=== PATIENT | male | born 1945 | race Caucasian/White ===

== ENCOUNTER 2019-09-02 10:10 | Outpatient (RCR) | payer MEDICARE, OTHER, SELFPAY ==
[2019-07-01 10:44] LABS: INR 2.3; Prothrombin Time 24.7 Seconds (11.1-14.7)
[2019-07-31 11:46] LABS: INR 1.5
[2019-08-12 10:27] LABS: INR 2.3; Prothrombin Time 25.1 Seconds (11.1-14.7)
[2019-09-02 11:23] LABS: INR 2.3
== END 2019-09-29 23:59 | disposition home or self-care (01) ==
LOC: ANHLAB 10:10
PROVIDERS: PCP Internal Medicine; Visit Provider Internal Medicine Cardiovascular Disease
DX: Z51.81 Encounter for therapeutic drug level monitoring (principal); I48.91 Unspecified atrial fibrillation; Z79.01 Long term (current) use of anticoagulants
CPT/HCPCS: 36415; 85610

== ENCOUNTER 2019-11-28 09:19 | Outpatient (CLI) | payer MEDICARE, OTHER, SELFPAY ==
[2019-12-03 16:33] LABS: Calprotectin, Stool 325 mcg/g
== END 2019-11-28 09:20 | disposition home or self-care (01) ==
LOC: ANHLAB 09:21
PROVIDERS: PCP Internal Medicine; Visit Provider Internal Medicine Gastroenterology
DX: R19.4 Change in bowel habit (principal)
CPT/HCPCS: 83993

== ENCOUNTER 2019-12-05 10:40 | Outpatient (CLI) | payer MEDICARE, OTHER, SELFPAY ==
[2019-12-06 12:26] LABS: CA 19-9 13 U/mL (<34)
== END 2019-12-05 10:41 | disposition home or self-care (01) ==
LOC: ANHLAB 10:42
PROVIDERS: PCP Internal Medicine; Visit Provider Internal Medicine Gastroenterology
DX: K86.2 Cyst of pancreas (principal)
CPT/HCPCS: 36415; 86301

== ENCOUNTER 2019-12-10 08:51 | Outpatient (CLI) | payer MEDICARE, OTHER, SELFPAY ==
--- NOTE | ~2019-12-10 | CT_ITS ---
EXAMINATION: CT chest w con DATE: 12/10/2019 09:30 INDICATION: Non-small cell lung cancer TECHNIQUE: Transaxial computed tomographic images of the chest were obtained after the administration of 75 cc of Omnipaque 350 intravenous contrast. The dose-length product (DLP) was 299.75 mGy-cm. Ite rative reconstruction was used. COMPARISON: 06/14/2019 FINDINGS: There is stable volume loss of the right lung related to right partial pneumonectomy. There is also a stable right hydropneumothorax. No acute airspace opacities are identified. There is minim al chronic opacity in the medial right lung base. Moderate emphysema is noted. Right perihilar reticu lar opacities are stable. The heart size is normal. Chronic deformities of multiple right-sided ribs are consistent with thoracotomy change. An unchanged 7.3 cm mass of the right adrenal gland containin g fat, soft tissue, and calcified density is consistent with a myelolipoma. There is a 4.3 cm cyst of the left kidney upper pole. Stones are present in the nondistended gallbladder. There are bridging o steophytes at multiple levels in the spine, consistent with diffuse idiopathic skeletal hyperostosis (DISH). There is a subtle compression fracture of the T3 vertebral body, new since the prior examinat ion. IMPRESSION: 1. Stable treatment changes of the right lung. 2. Subtle compression fracture of the T3 vertebral body, new since the prior examination. Reviewed, dictated and finalized at location A. IMPRESSION: 1. Stable treatment changes of the right lung. 2. Subtle compression fracture of the T3 vertebral body, new since the prior ex amination.
== END 2019-12-10 08:52 | disposition home or self-care (01) ==
PROVIDERS: PCP Internal Medicine; Visit Provider Internal Medicine Hematology & Oncology
DX: C34.91 Malignant neoplasm of unspecified part of right bronchus or lung (principal); M48.54XA Collapsed vertebra, not elsewhere classified, thoracic region, initial encounter for fracture
CPT/HCPCS: 71260; Q9967

== ENCOUNTER 2019-12-18 10:29 | Outpatient (CLI) | payer MEDICARE, OTHER, SELFPAY ==
[2019-12-18 10:44] LABS: Basophils Percent Auto 0.4 % (0.2-1.2); Eosinophils Absolute Auto 0.1 K/mm3 (0-0.3); Eosinophils Percent Auto 1.6 % (0-4.4); Hematocrit 54.4 % (42.0-52.0); Hemoglobin 17.1 g/dL (14.0-18.0); Immature Granulocyte Absolute 0.03 K/mm3 (0.00-0.031); Immature Granulocyte Percent A 0.4 % (0-0.5); Lymphocytes Absolute Auto 1.18 K/mm3 (0.9-3.2); Lymphocytes Percent Auto 14.5 % (18.3-44.2); Mean Corpuscular HGB Conc 31.4 g/dl (32-36); Mean Corpuscular Hemoglobin 30.2 pg (26-34); Mean Corpuscular Volume 96.1 fl (80-100); Mean Platelet Volume 9.4 fl (7.4-10.4); Monocytes Absolute Auto 0.8 K/mm3 (0.1-0.6); Neutrophils Absolute Auto 5.9 K/mm3 (1.3-6.7); Neutrophils Percent Auto 73.1 % (45.5-73.1); Platelet Count Result 234 k/mm3 (150-375); Red Blood Count 5.66 M/mm3 (4.6-6.20); Red Cell Distribution Width 14.7 % (11.5-14.5); White Blood Count 8.1 K/mm3 (4.5-10.0)
[2019-12-18 10:51] LABS: Blood Urea Nitrogen 15 mg/dL (8-26); Carbon Dioxide 34 mmol/L (22-30); Chloride 95 mmol/L (98-109); Estimated Glomerular Filt Rate > 60; Glucose 97 mg/dL (70-105); Potassium 4.5 mmol/L (3.5-4.9); Sodium 137 mmol/L (138-146)
[2019-12-18 11:42] LABS: Alanine Aminotransferase 16 U/L (4-50); Alkaline Phosphatase 119 U/L (38-126); Aspartate Amino Transferase 24 U/L (17-59); Blood Urea Nitrogen 15 mg/dL (9-20); Calcium 8.8 mg/dL (8.4-10.2); Carbon Dioxide 32 mmol/L (22-30); Chloride 96 mmol/L (98-107); Estimated Glomerular Filt Rate > 60; Glucose 93 mg/dL (75-110); Potassium 4.8 mmol/L (3.4-5.0); Sodium 134 mmol/L (137-145)
== END 2019-12-18 10:30 | disposition home or self-care (01) ==
LOC: ANHLAB 10:31
PROVIDERS: PCP Internal Medicine; Visit Provider Internal Medicine Hematology & Oncology
DX: C34.91 Malignant neoplasm of unspecified part of right bronchus or lung (principal)
CPT/HCPCS: 36415; 80048; 80053; 85025

== ENCOUNTER 2019-12-26 10:04 | Outpatient (RCR) | payer MEDICARE, OTHER, SELFPAY ==
[2019-09-30 09:44] LABS: INR 2.7; Prothrombin Time 28.2 Seconds (11.1-14.7)
[2019-09-30 09:49] LABS: Alanine Aminotransferase 13 U/L (4-50); Albumin Level 3.8 g/dL (3.5-5.1); Alkaline Phosphatase 101 U/L (38-126); Aspartate Amino Transferase 23 U/L (17-59); Blood Urea Nitrogen 16 mg/dL (9-20); Calcium 8.6 mg/dL (8.4-10.2); Carbon Dioxide 38 mmol/L (22-30); Chloride 92 mmol/L (98-107); Estimated Glomerular Filt Rate > 60; Glucose 91 mg/dL (75-110); Potassium 4.3 mmol/L (3.4-5.0); Sodium 141 mmol/L (137-145)
[2019-10-29 11:10] LABS: INR 3.5; Prothrombin Time 34.7 Seconds (11.1-14.7)
[2019-11-13 10:43] LABS: Hematocrit 50.5 % (42.0-52.0); Hemoglobin 15.8 g/dL (14.0-18.0); Mean Corpuscular HGB Conc 31.3 g/dl (32-36); Mean Corpuscular Hemoglobin 29.8 pg (26-34); Mean Corpuscular Volume 95.3 fl (80-100); Mean Platelet Volume 9.6 fl (7.4-10.4); Platelet Count Result 218 k/mm3 (150-375); Red Cell Distribution Width 13.9 % (11.5-14.5); White Blood Count 6.9 K/mm3 (4.5-10.0)
[2019-11-13 10:54] LABS: INR 2.3
[2019-11-13 10:56] LABS: Alanine Aminotransferase 15 U/L (4-50); Albumin Level 3.5 g/dL (3.5-5.1); Alkaline Phosphatase 105 U/L (38-126); Aspartate Amino Transferase 22 U/L (17-59); Bilirubin,Total 0.6 mg/dL (0.2-1.3); Blood Urea Nitrogen 14 mg/dL (9-20); Calcium 8.4 mg/dL (8.4-10.2); Carbon Dioxide 37 mmol/L (22-30); Chloride 96 mmol/L (98-107); Estimated Glomerular Filt Rate > 60; Glucose 88 mg/dL (75-110); Lipase 36 U/L (23-300); Potassium 4.3 mmol/L (3.4-5.0); Sodium 136 mmol/L (137-145)
[2019-12-11 11:44] LABS: INR 1.7; Prothrombin Time 19.1 Seconds (11.1-14.7)
[2019-12-26 10:48] LABS: Prothrombin Time 22.2 Seconds (11.1-14.7)
== END 2019-12-29 23:59 | disposition home or self-care (01) ==
LOC: ANHLAB 10:04
PROVIDERS: PCP Internal Medicine; Visit Provider Internal Medicine Cardiovascular Disease
DX: Z51.81 Encounter for therapeutic drug level monitoring (principal); I48.91 Unspecified atrial fibrillation; Z79.01 Long term (current) use of anticoagulants
CPT/HCPCS: 36415; 80053; 83690; 85027; 85610

== ENCOUNTER 2020-01-23 09:37 | Outpatient (CLI) | payer MEDICARE, OTHER, SELFPAY ==
[2020-01-23 12:46] LABS: Alanine Aminotransferase 15 U/L (4-50); Albumin Level 3.9 g/dL (3.5-5.1); Alkaline Phosphatase 102 U/L (38-126); Aspartate Amino Transferase 24 U/L (17-59); Blood Urea Nitrogen 13 mg/dL (9-20); Calcium 8.7 mg/dL (8.4-10.2); Carbon Dioxide 36 mmol/L (22-30); Chloride 97 mmol/L (98-107); Cholesterol 144 mg/dL (0-200); Estimated Glomerular Filt Rate > 60; Glucose 98 mg/dL (75-110); HDL Direct 53 mg/dL; LDL Cholesterol Direct 72 mg/dL; Potassium 4.1 mmol/L (3.4-5.0); Sodium 137 mmol/L (137-145); Thyroid Stimulating Hormone 0.351 uIU/mL (0.465-4.680); Triglycerides 94 mg/dL (<150)
[2020-01-23 14:50] LABS: Total Triiodothyronine (T3) 1.38 NG/ML (0.97-1.69)
== END 2020-01-23 09:38 | disposition home or self-care (01) ==
PROVIDERS: Nurse Practitioner; PCP Internal Medicine; Visit Provider Internal Medicine
DX: E78.5 Hyperlipidemia, unspecified (principal); E05.90 Thyrotoxicosis, unspecified without thyrotoxic crisis or storm; I10 Essential (primary) hypertension
CPT/HCPCS: 36415; 80048; 80061; 80076; 84436; 84443; 84480

== ENCOUNTER 2020-01-24 09:17 | Outpatient (CLI) | payer MEDICARE, OTHER, SELFPAY ==
[2020-01-24 11:06] LABS: Free T4 Free Thyroxine 1.45 ng/mL (0.78-2.19)
[2020-01-24 11:10] LABS: Total Triiodothyronine (T3) 1.43 NG/ML (0.97-1.69)
== END 2020-01-24 09:18 | disposition home or self-care (01) ==
PROVIDERS: PCP Internal Medicine; Visit Provider Internal Medicine
DX: E03.9 Hypothyroidism, unspecified (principal); R79.89 Other specified abnormal findings of blood chemistry
CPT/HCPCS: 36415; 84439; 84480

== ENCOUNTER 2020-04-17 10:21 | Outpatient (RCR) | payer MEDICARE, OTHER, SELFPAY ==
[2020-01-23 12:46] LABS: Alanine Aminotransferase 15 U/L (4-50); Albumin Level 3.9 g/dL (3.5-5.1); Alkaline Phosphatase 103 U/L (38-126); Aspartate Amino Transferase 25 U/L (17-59); Blood Urea Nitrogen 14 mg/dL (9-20); Calcium 8.6 mg/dL (8.4-10.2); Carbon Dioxide 37 mmol/L (22-30); Chloride 97 mmol/L (98-107); Estimated Glomerular Filt Rate > 60; Glucose 98 mg/dL (75-110); Potassium 4.1 mmol/L (3.4-5.0); Sodium 137 mmol/L (137-145)
[2020-01-23 13:10] LABS: INR 1.9; Prothrombin Time 21.1 Seconds (11.1-14.7)
[2020-02-19 10:16] LABS: INR 1.9; Prothrombin Time 20.9 Seconds (11.1-14.7)
[2020-02-19 10:17] LABS: Alanine Aminotransferase 21 U/L (4-50); Alkaline Phosphatase 109 U/L (38-126); Aspartate Amino Transferase 23 U/L (17-59); Bilirubin,Total 0.9 mg/dL (0.2-1.3); Blood Urea Nitrogen 16 mg/dL (9-20); Calcium 8.7 mg/dL (8.4-10.2); Carbon Dioxide 32 mmol/L (22-30); Chloride 98 mmol/L (98-107); Estimated Glomerular Filt Rate > 60; Glucose 106 mg/dL (75-110); Potassium 4.3 mmol/L (3.4-5.0); Sodium 135 mmol/L (137-145)
[2020-03-24 11:13] LABS: INR 1.7; Prothrombin Time 19.9 Seconds (11.1-14.7)
[2020-04-03 14:23] LABS: INR 2.6; Prothrombin Time 27.4 Seconds (11.1-14.7)
[2020-04-03 14:34] LABS: Alanine Aminotransferase 17 U/L (4-50); Albumin Level 3.8 g/dL (3.5-5.1); Alkaline Phosphatase 98 U/L (38-126); Anion Gap 8 mmol/L (8-16); Aspartate Amino Transferase 24 U/L (17-59); Bilirubin,Total 0.7 mg/dL (0.2-1.3); Blood Urea Nitrogen 20 mg/dL (9-20); Calcium 8.4 mg/dL (8.4-10.2); Carbon Dioxide 28 mmol/L (22-30); Chloride 98 mmol/L (98-107); Estimated Glomerular Filt Rate > 60; Glucose 124 mg/dL (75-110); Potassium 4.1 mmol/L (3.4-5.0); Sodium 134 mmol/L (137-145)
[2020-04-17 10:58] LABS: INR 2.3; Prothrombin Time 25.2 Seconds (11.1-14.7)
== END 2020-04-22 23:59 | disposition home or self-care (01) ==
LOC: ANHLAB 10:21
PROVIDERS: PCP Internal Medicine; Visit Provider Internal Medicine Cardiovascular Disease
DX: Z51.81 Encounter for therapeutic drug level monitoring (principal); I48.91 Unspecified atrial fibrillation; Z79.01 Long term (current) use of anticoagulants; I50.812 Chronic right heart failure
CPT/HCPCS: 36415; 80048; 80053; 80061; 80076; 82248; 84436; 84443; 84480; 85610

== ENCOUNTER 2020-06-26 12:06 | Outpatient (CLI) | payer MEDICARE, OTHER, SELFPAY ==
[2020-06-26 12:37] VITALS: PULSE 75; O2SAT 96
[2020-06-26 12:42] VITALS: PULSE 116; O2SAT 94
[2020-06-26 12:50] VITALS: PULSE 88; O2SAT 95
--- NOTE | 2020-06-26 13:16 | HOMEO2EVAL ---
Home Oxygen Evaluation RC: Home Oxygen (O2) Evaluation Start: 06/26/20 13:10 Freq: Status: Active Protocol: RPE Activity Type Activity Date Activity User E-Sign Co-Sign Detail Recorded Client Recorded Date Recorded By Document 06/26/20 12:37 [email or web address] [email or web address] 06/26/20 13:14 KLA Document 06/26/20 12:42 [email or web address] [email or web address] 06/26/20 13:16 KLA Document 06/26/20 12:50 [email or web address] [email or web address] 06/26/20 13:16 KLA 06/26/20 06/26/20 06/26/20 12:37 12:42 12:50 Home O2 Evaluation Test Phase Resting Exercise Resting Oxygen Delivery Room Air Room Air Room Air Pulse Oximetry (90-100 %) 96 94 95 Pulse Rate (60-100 beats/min) 75 116 H 88 Activity Tolerance Fair Ambulation Distance (feet) 150 Home Oxygen Evaluation Comments Patient's mobility limited due to muscle fatigue and hip pain. Treatment Charges O2 Evaluation
== END 2020-06-26 12:07 | disposition home or self-care (01) ==
PROVIDERS: PCP Internal Medicine; Visit Provider Nurse Practitioner Family
DX: J96.11 Chronic respiratory failure with hypoxia (principal); J96.12 Chronic respiratory failure with hypercapnia
CPT/HCPCS: 94618

== ENCOUNTER 2020-06-29 10:26 | Outpatient (CLI) | payer MEDICARE, OTHER, SELFPAY ==
[2020-06-29 11:17] LABS: Cholesterol 137 mg/dL (0-200); HDL Direct 43 mg/dL; Triglycerides 135 mg/dL (<150)
[2020-06-29 11:30] LABS: LDL Cholesterol Direct 76 mg/dL
[2020-06-29 11:50] LABS: Prostate Specific Antigen 1.8 ng/mL (< OR = 4.0)
== END 2020-06-29 10:27 | disposition home or self-care (01) ==
LOC: ANHLAB 10:28
PROVIDERS: PCP Internal Medicine; Visit Provider Internal Medicine
DX: Z12.5 Encounter for screening for malignant neoplasm of prostate (principal); E78.5 Hyperlipidemia, unspecified
CPT/HCPCS: 36415; 80061; 84153; G0103

== ENCOUNTER 2020-07-06 07:23 | Outpatient (CLI) | payer MEDICARE, OTHER, SELFPAY ==
--- NOTE | ~2020-07-06 | CT_ITS ---
EXAMINATION: CT abdomen w con DATE: 07/06/2020 08:00 INDICATION: Pancreatic cyst TECHNIQUE: Computed tomography (CT) of the abdomen was performed with 100 cc Omnipaque 350 intravenou s contrast. Automated exposure control and iterative reconstruction technique were employed. Exam dos e: 722.53 mGy-cm total exam DLP. COMPARISON: 09/14/2018 MRI abdomen 02/28/2018 CT abdomen pelvis 08/30/2017 CTA abdomen pelvis 08/02/2017 CT chest abdomen pelvis 09/20/2016 CT abdomen pelvis FINDINGS: Again noted is rightward shift of the heart secondary to history of right partial pneumonec robbie. There is cardiomegaly. No pericardial or pleural effusion. There is atelectasis and/or scarring at the lung bases, right greater than left. Right post thoracotomy rib cage deformity. At least a couple of small hepatic cysts are suggested, the largest at the medial segment of the left hepatic lobe adjacent to the fissure for the ligamentum teres. Small hyperdense stones in the depend ent aspect of the gallbladder cannot be excluded. Consider sonographic correlation. No bile duct or p ancreatic duct dilatation. Stable approximately 2.4 cm cystic lesion of the uncinate process of the pancreas, previously attribu freya to pseudocyst. There are scattered pancreatic calcifications consistent with chronic pancreatitis . Normal splenic size. Stable approximate 5.5 x 7 x 1 cm mixed attenuation (including fat and calcium) adrenal myelolipoma o n the right. Stable approximately 4.1 cm cyst at the upper pole of the left kidney. Occasional very small addition al bilateral renal cysts. No renal or proximal ureteral calculus or hydroureteronephrosis. There is an endovascular stent of the immediately infrarenal abdominal aorta, extending into both com mon iliac arteries. There are calcifications at the origins of the renal arteries and celiac and supe rior mesenteric arteries. There is a separate origin of the hepatic artery from the aorta. No intraperitoneal or retroperitoneal mass lesion or adenopathy is detected. There are numerous diverticula of the descending colon and splenic flexure; no CT evidence of diverti culitis. No bowel obstruction or intraperitoneal free air. Diffuse osteopenia. Diffuse idiopathic skeletal hyperostosis of the thoracic spine. Mild compression fracture deformity of L2. There is prominent degenerative disc disease of the lumbar spine. IMPRESSION: Status post right partial pneumonectomy Cardiomegaly Bibasilar atelectasis and/or scarring, right greater than left Small hepatic cysts Cannot exclude cholelithiasis; consider sonographic correlation as clinically appropriate Stable 2.4 cm cystic lesion of the uncinate process of pancreas, previously attributed to suggest pse udocyst Chronic pancreatitis Large stable right adrenal myelolipoma Stable 4.1 cm upper pole left renal cyst; additional very small bilateral renal cysts Endovascular abdominal iymxn-ej-ofijo stent Diverticulosis of the left colon Reviewed, dictated and finalized at Location A. Reviewed, dictated and finalized at location B. 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
[2020-07-06 07:55] LABS: Estimated Glomerular Filt Rate > 60
== END 2020-07-06 07:24 | disposition home or self-care (01) ==
PROVIDERS: PCP Internal Medicine; Visit Provider Internal Medicine Gastroenterology
DX: K86.2 Cyst of pancreas (principal); I51.7 Cardiomegaly; K57.30 Diverticulosis of large intestine without perforation or abscess without bleeding; D35.01 Benign neoplasm of right adrenal gland; N28.1 Cyst of kidney, acquired
CPT/HCPCS: 74160; Q9967

== ENCOUNTER 2020-08-04 11:29 | Outpatient (RCR) | payer MEDICARE, OTHER, SELFPAY ==
[2020-05-15 12:37] LABS: INR 3.1; Prothrombin Time 31.6 Seconds (11.1-14.7)
[2020-06-05 12:54] LABS: INR 2.5; Prothrombin Time 26.8 Seconds (11.1-14.7)
[2020-07-13 10:54] LABS: INR 2.2; Prothrombin Time 25.2 Seconds (11.1-14.7)
[2020-08-04 12:04] LABS: INR 2.2; Prothrombin Time 24.8 Seconds (11.1-14.7)
== END 2020-08-13 23:59 | disposition home or self-care (01) ==
LOC: ANHLAB 11:29
PROVIDERS: PCP Internal Medicine; Visit Provider Internal Medicine Cardiovascular Disease
DX: I48.91 Unspecified atrial fibrillation (principal)
CPT/HCPCS: 36415; 85610

== ENCOUNTER 2020-11-02 07:55 | Outpatient (CLI) | payer MEDICARE, OTHER, SELFPAY ==
--- NOTE | 2020-11-02 | EST_ITS ---
Patient Info Name: Wesley Keene Age: 75 years : 1945 Gender: Male Ht: 70 in Wt: 210 lbs BSA: 2.19 m2 Heart Rhythm: Atrial Fibrillation Exam Date: 11/02/2020 9:09 AM Exam Location: [facility] Stress Patient Status: Outpatient Admit Date: 11/02/2020 Staff Ordering Physician: Corinne Brunson MD Attending Provider: Corinne Brunson MD Exercise Technologist: Nina Fenton RDCS Exercise Physician: Kin Villalpando MD Exam Type: CA stress andrew w NM Study Info Indications R06.02 - Shortness of breath A regadenoson stress test was performed. Summary 1. No abnormal ST/T wave changes with Lexiscan. 2. Occasional PVCs vs aberrant conduction noted during stress. 3. Please correlate with nuclear medicine images, reported separately. 4. No chest discomfort with stress test. Protocol: Lexiscan Stress ECG Details Stage: REST Duration (min): 1 min : 36 sec HR (bpm): 107 SBP (mmHg): 115 DBP (mmHg): 92 Stage: REST Duration (min): 7 min : 50 sec HR (bpm): 100 SBP (mmHg): 115 DBP (mmHg): 92 Stage: STAGE 1 Duration (min): 1 min : 0 sec HR (bpm): 80 SBP (mmHg): 111 DBP (mmHg): 85 Stage: RECOVERY Duration (min): 1 min : 0 sec HR (bpm): 116 SBP (mmHg): 107 DBP (mmHg): 83 Stage: RECOVERY Duration (min): 2 min : 0 sec HR (bpm): 119 SBP (mmHg): 107 DBP (mmHg): 83 Stage: RECOVERY Duration (min): 3 min : 0 sec HR (bpm): 95 SBP (mmHg): 109 DBP (mmHg): 85 Stage: RECOVERY Duration (min): 3 min : 30 sec HR (bpm): 103 SBP (mmHg): 109 DBP (mmHg): 85 Rest HR: 100 bpm Peak HR: 119 bpm Rest Sys BP: 115 mmHg Peak Sys BP: 111 mmHg Max Pred HR: 145 bpm % Max Pred HR: 82 % Target HR: 123 bpm Max RPP: 13,209 bpm*mmHg Total Time: 1 min : 0 sec Rest Rhodes BP: 92 mmHg Peak Rhodes BP: 85 mmHg Total Dose: 0.4 mg Resting ECG Atrial fibrillation with RVR, NSST changes. Stress ECG No abnormal ST/T wave changes with Lexiscan. Arrhythmias Occasional PVCs vs aberrant conduction noted during stress. Report Signatures
--- NOTE | ~2020-11-02 | NM_ITS ---
EXAMINATION: NM andrew stress w perfusion DATE: 11/02/2020 10:22 INDICATION: Shortness of breath TECHNIQUE: Rest images were obtained following intravenous administration of 9.7 mCi Tc99m tetrofosmi n (Myoview). The patient was infused intravenously with Lexiscan (Regadenoson). Then, 30.1 mCi Tc99m tetrofosmin (Myoview) was administered intravenously, and stress images were obtained. Data was recon structed into short axis and horizontal and vertical long axis SPECT images. Gated SPECT images were also obtained. COMPARISON: None. FINDINGS: There is no definite reversible or fixed perfusion abnormality to suggest ischemia or infar ction. There is normal left ventricular chamber size, wall motion and ejection fraction. Left ventr icular ejection fraction measures 66%. IMPRESSION: 1. Normal myocardial perfusion at rest and during stress. 2. Left ventricular ejection fraction measuring 66%. Reviewed, dictated and finalized at location B.
== END 2020-11-02 07:56 | disposition home or self-care (01) ==
PROVIDERS: PCP Internal Medicine; Visit Provider Internal Medicine Critical Care Medicine
DX: J44.9 Chronic obstructive pulmonary disease, unspecified (principal); R06.02 Shortness of breath
CPT/HCPCS: 78452; 93017; A9502; J2785

== ENCOUNTER 2020-11-11 13:56 | Outpatient (CLI) | payer MEDICARE, OTHER, SELFPAY ==
--- NOTE | 2020-11-12 09:40 | WPDPFTINT ---
PFT Interpretation This PFT met all criteria for ATS standards and reproducibility FEV/FVC post bronchodilator 49% FEV1 38% or 1.15 liters FVC 58% or 2.36 liters No bronchodilator challenge was given TLC 81% RV 131% RV/TLC 59% DLCO 45% when adjusted for alveolar volume but not adjusted for hemoglobin Flow volume loops showed significant expiratory coving Impression: Severe airflow obstruction with air trapping and moderately decreased diffusion capacity. The lack of bronchodilator challenge limits the interpretability of this study. This pattern is suggestive of COPD. Clinical correlation is advised.
== END 2020-11-11 13:57 | disposition home or self-care (01) ==
PROVIDERS: PCP Internal Medicine; Visit Provider Internal Medicine Critical Care Medicine
DX: J44.9 Chronic obstructive pulmonary disease, unspecified (principal); R94.2 Abnormal results of pulmonary function studies
CPT/HCPCS: 94375; 94726; 94729

== ENCOUNTER 2020-11-18 10:28 | Outpatient (RCR) | payer MEDICARE, OTHER, SELFPAY ==
[2020-09-01 08:53] LABS: INR 2.9; Prothrombin Time 30.7 Seconds (11.1-14.7)
[2020-10-26 10:16] LABS: INR 2.9; Prothrombin Time 30.5 Seconds (11.1-14.7)
[2020-11-18 10:55] LABS: INR 2.9; Prothrombin Time 30.8 Seconds (11.1-14.7)
== END 2020-11-30 23:59 | disposition home or self-care (01) ==
LOC: ANHLAB 10:28
PROVIDERS: PCP Internal Medicine; Visit Provider Internal Medicine Cardiovascular Disease
DX: I48.91 Unspecified atrial fibrillation (principal)
CPT/HCPCS: 36415; 85610

== ENCOUNTER 2020-12-03 10:26 | Outpatient (CLI) | payer MEDICARE, OTHER, SELFPAY ==
--- NOTE | ~2020-12-03 | CT_ITS ---
EXAMINATION: CT diagnostic chest w con DATE: 12/03/2020 11:08 INDICATION: Non-small cell lung cancer TECHNIQUE: Transaxial computed tomographic images of the chest were obtained after the administration of 75 cc of Omnipaque 350 intravenous contrast. The dose-length product (DLP) was 519.99 mGy-cm. Ite rative reconstruction was used. COMPARISON: 12/10/2019 FINDINGS: There is an unchanged small right hydropneumothorax. Volume loss in the right hemithorax is consistent with right partial pneumonectomy. There is moderate emphysema. Chronic airspace opacities are present in the right lung base. No new pulmonary nodules are identified. No pathologically enlar ged thoracic lymph nodes are identified. The heart size is normal. Chronic deformities of the lateral right ribs are consistent with thoracotomy change. There is also chronic and unchanged synthetic mat erial in the right pleural space, likely related to prior lung cancer treatment. A stable 7.3 cm mass of the right adrenal gland containing fat, soft tissue, and calcium is consistent with a myelolipoma . There is a 4.3 cm cyst in the left kidney upper pole. There are bridging osteophytes at multiple le vels in the spine, consistent with diffuse idiopathic skeletal hyperostosis (DISH). IMPRESSION: 1. Stable changes in the right chest, consistent with lung cancer treatment. No new findings. Reviewed, dictated and finalized at location B.
[2020-12-03 10:52] LABS: Estimated Glomerular Filt Rate > 60
== END 2020-12-03 10:27 | disposition home or self-care (01) ==
PROVIDERS: PCP Internal Medicine; Visit Provider Internal Medicine Hematology & Oncology
DX: C34.90 Malignant neoplasm of unspecified part of unspecified bronchus or lung (principal); J44.9 Chronic obstructive pulmonary disease, unspecified
CPT/HCPCS: 71260; Q9967

== ENCOUNTER 2021-01-11 08:06 | Outpatient (CLI) | payer MEDICARE, SELFPAY ==
[2021-01-11 08:34] LABS: Alanine Aminotransferase 14 U/L (4-50); Albumin Level 3.7 g/dL (3.5-5.1); Alkaline Phosphatase 80 U/L (38-126); Anion Gap 2 mmol/L (8-16); Aspartate Amino Transferase 21 U/L (17-59); Bilirubin,Total 0.9 mg/dL (0.2-1.3); Blood Urea Nitrogen 17 mg/dL (9-20); Calcium 8.5 mg/dL (8.4-10.2); Carbon Dioxide 36 mmol/L (22-30); Chloride 101 mmol/L (98-107); Cholesterol 160 mg/dL (0-200); Estimated Glomerular Filt Rate > 60; Glucose 97 mg/dL (75-110); HDL Direct 52 mg/dL; Potassium 4.1 mmol/L (3.4-5.0); Sodium 139 mmol/L (137-145); Triglycerides 92 mg/dL (<150)
[2021-01-11 08:45] LABS: LDL Cholesterol Direct 76 mg/dL
== END 2021-01-11 08:07 | disposition home or self-care (01) ==
PROVIDERS: PCP Internal Medicine; Visit Provider Nurse Practitioner
DX: E78.5 Hyperlipidemia, unspecified (principal)
CPT/HCPCS: 36415; 80053; 80061

== ENCOUNTER 2021-01-22 07:42 | Outpatient (CLI) | payer MEDICARE, SELFPAY ==
[2021-01-22 07:55] VITALS: PULSE 75; O2SAT 94
[2021-01-22 08:00] VITALS: PULSE 89; O2SAT 87
[2021-01-22 08:05] VITALS: PULSE 90; O2SAT 88
[2021-01-22 08:10] VITALS: O2SAT 92
[2021-01-22 08:25] VITALS: PULSE 74; O2SAT 94
--- NOTE | 2021-01-22 11:21 | HOMEO2EVAL ---
Evaluation was performed at [facility] Home Oxygen Evaluation RC: Home Oxygen (O2) Evaluation Start: 01/22/21 11:12 Freq: Status: Active Protocol: RPE Activity Type Activity Date Activity User E-Sign Co-Sign Detail Recorded Client Recorded Date Recorded By Document 01/22/21 07:55 [email or web address] [email or web address] 01/22/21 11:20 DJO Document 01/22/21 08:00 [email or web address] [email or web address] 01/22/21 11:20 DJO Document 01/22/21 08:05 [email or web address] [email or web address] 01/22/21 11:20 DJO Document 01/22/21 08:10 [email or web address] [email or web address] 01/22/21 11:20 DJO Document 01/22/21 08:25 [email or web address] [email or web address] 01/22/21 11:20 DJO 01/22/21 01/22/21 01/22/21 07:55 08:00 08:05 Home O2 Evaluation Test Phase Resting Exercise Exercise Oxygen Delivery Room Air Room Air Nasal Cannula Oxygen Flow Rate (L/min) 1 Pulse Oximetry (90-100 %) 94 87 L 88 L Pulse Rate (60-100 beats/min) 75 89 90 Activity Tolerance Treatment Charges O2 Evaluation - Outpatient 01/22/21 01/22/21 08:10 08:25 Home O2 Evaluation Test Phase Exercise Resting Oxygen Delivery Nasal Cannula Room Air Oxygen Flow Rate (L/min) 2 Pulse Oximetry (90-100 %) 92 94 Pulse Rate (60-100 beats/min) 74 Activity Tolerance Fair Treatment Charges
== END 2021-01-22 07:43 | disposition home or self-care (01) ==
PROVIDERS: PCP Internal Medicine; Visit Provider Nurse Practitioner Family
DX: R06.00 Dyspnea, unspecified (principal)
CPT/HCPCS: 94618

== ENCOUNTER 2021-03-04 13:30 | Outpatient (RCR) | payer MEDICARE, OTHER, SELFPAY ==
[2020-11-12 12:37] VITALS: BP 140/86; PULSE 106; RESP 24; TEMP 36.4; O2SAT 94
[2020-11-12 12:49] VITALS: PULSE 106
--- NOTE | 2020-12-31 13:43 | PCCPR ---
Addendum entered by Amaya Kirby 12/31/20 14:24: pt plans to attend the 1630 class Original Note: pt cxl today due to family emergency
== END 2021-03-04 19:30 | disposition home or self-care (01) ==
LOC: ANHCPREHAB 13:30
PROVIDERS: PCP Internal Medicine; Visit Provider Internal Medicine Critical Care Medicine
DX: J44.9 Chronic obstructive pulmonary disease, unspecified (principal)
CPT/HCPCS: 97150; G0424

== ENCOUNTER 2021-03-08 10:14 | Outpatient (RCR) | payer MEDICARE, SELFPAY ==
[2020-12-28 10:44] LABS: INR 2.7; Prothrombin Time 28.9 Seconds (11.1-14.7)
[2021-02-01 09:30] LABS: INR 2.3; Prothrombin Time 26.2 Seconds (11.1-14.7)
[2021-02-08 11:09] LABS: INR 2.9; Prothrombin Time 30.9 Seconds (11.1-14.7)
[2021-02-17 10:54] LABS: INR 2.4; Prothrombin Time 27.1 Seconds (11.1-14.7)
[2021-03-08 10:56] LABS: INR 2.1; Prothrombin Time 23.3 Seconds (11.1-14.7)
== END 2021-03-28 23:59 | disposition home or self-care (01) ==
LOC: ANHLAB 10:14
PROVIDERS: PCP Internal Medicine; Visit Provider Internal Medicine Cardiovascular Disease
DX: Z51.81 Encounter for therapeutic drug level monitoring (principal); I48.91 Unspecified atrial fibrillation; Z79.01 Long term (current) use of anticoagulants
CPT/HCPCS: 36415; 85610

== ENCOUNTER 2021-03-17 12:33 | Outpatient (CLI) | payer MEDICARE, SELFPAY ==
--- NOTE | 2021-03-17 15:46 | WPDSIXMINUTE ---
Six Minute Walk Procedure Procedure Performed Pulmonary Stress Test (6 min walk) Six Minute Walk This is a 6 minutes walk test. The test was performed and interpreted in accordance with the 2014 ERS/ATS task force guidelines. Of note patient walked with a rollator and stop 3 times due to leg and back pain. Findings: The patient's resting room air oxygen saturation measured by pulse oximetry was 93% and her heart rate was 83 bpm. Patient ambulated for 152 meters and oxygen saturation remained 88% to 95%. Heart rate at the end of the study was 74 bpm. The patient did not qualify for supplemental oxygen at rest or with ambulation. There are no prior studies for comparison.
== END 2021-03-17 12:34 | disposition home or self-care (01) ==
PROVIDERS: PCP Internal Medicine; Visit Provider Internal Medicine Critical Care Medicine
DX: J44.9 Chronic obstructive pulmonary disease, unspecified (principal)
CPT/HCPCS: 94618

== ENCOUNTER 2021-06-21 10:31 | Outpatient (RCR) | payer MEDICARE, SELFPAY ==
[2021-04-08 09:57] LABS: INR 2.4; Prothrombin Time 25.8 Seconds (11.1-14.7)
[2021-05-17 11:00] LABS: INR 1.9; Prothrombin Time 21.5 Seconds (11.1-14.7)
[2021-06-21 11:17] LABS: INR 2.3; Prothrombin Time 24.4 Seconds (11.1-14.7)
== END 2021-07-07 23:59 | disposition home or self-care (01) ==
LOC: ANHLAB 10:31
PROVIDERS: PCP Internal Medicine; Visit Provider Internal Medicine Cardiovascular Disease
DX: Z51.81 Encounter for therapeutic drug level monitoring (principal); I48.91 Unspecified atrial fibrillation; Z79.01 Long term (current) use of anticoagulants
CPT/HCPCS: 36415; 85610

== ENCOUNTER 2021-07-21 07:19 | Outpatient (CLI) | payer MEDICARE, SELFPAY ==
[2021-07-21 08:04] LABS: Alanine Aminotransferase 16 U/L (4-50); Albumin Level 3.7 g/dL (3.5-5.1); Alkaline Phosphatase 83 U/L (38-126); Anion Gap 7 mmol/L (8-16); Aspartate Amino Transferase 22 U/L (17-59); Bilirubin,Total 0.6 mg/dL (0.2-1.3); Blood Urea Nitrogen 18 mg/dL (9-20); Calcium 8.6 mg/dL (8.4-10.2); Carbon Dioxide 36 mmol/L (22-30); Chloride 97 mmol/L (98-107); Cholesterol 138 mg/dL (0-200); Estimated Glomerular Filt Rate > 60; Glucose 101 mg/dL (65-110); HDL Direct 46 mg/dL; Potassium 4.2 mmol/L (3.4-5.0); Sodium 140 mmol/L (137-145); Triglycerides 100 mg/dL (<150)
[2021-07-21 08:15] LABS: LDL Cholesterol Direct 68 mg/dL
== END 2021-07-21 07:20 | disposition home or self-care (01) ==
LOC: ANHLAB 07:21
PROVIDERS: PCP Internal Medicine; Visit Provider Internal Medicine
DX: Z51.81 Encounter for therapeutic drug level monitoring (principal); Z79.899 Other long term (current) drug therapy; E78.5 Hyperlipidemia, unspecified; I10 Essential (primary) hypertension
CPT/HCPCS: 36415; 80053; 80061

== ENCOUNTER 2021-09-08 07:37 | Outpatient (CLI) | payer MEDICARE, SELFPAY ==
[2021-09-08 07:55] VITALS: PULSE 60; O2SAT 95
[2021-09-08 08:00] VITALS: PULSE 111; O2SAT 86
[2021-09-08 08:05] VITALS: PULSE 109; O2SAT 88
[2021-09-08 08:10] VITALS: PULSE 108; O2SAT 90
[2021-09-08 08:20] VITALS: PULSE 64; O2SAT 94
--- NOTE | 2021-09-08 08:33 | HOMEO2EVAL ---
Evaluation was performed at [facility] Home Oxygen Evaluation RC: Home Oxygen (O2) Evaluation Start: 09/08/21 08:24 Freq: Status: Active Protocol: RPE Activity Type Activity Date Activity User E-Sign Co-Sign Detail Recorded Client Recorded Date Recorded By Document 09/08/21 07:55 [email or web address] [email or web address] 09/08/21 08:33 DJO Document 09/08/21 08:00 [email or web address] [email or web address] 09/08/21 08:33 DJO Document 09/08/21 08:05 [email or web address] [email or web address] 09/08/21 08:33 DJO Document 09/08/21 08:10 [email or web address] [email or web address] 09/08/21 08:33 DJO Document 09/08/21 08:20 [email or web address] [email or web address] 09/08/21 08:33 DJO 09/08/21 09/08/21 09/08/21 07:55 08:00 08:05 Home O2 Evaluation Test Phase Resting Exercise Exercise Oxygen Delivery Room Air Room Air Nasal Cannula Oxygen Flow Rate (L/min) 1 Pulse Oximetry (90-100 %) 95 86 L 88 L Pulse Rate (60-100 beats/min) 60 111 H 109 H Activity Tolerance Rating of Perceived Dyspnea (PD) Rate of Perceived Exertion (PE) Treatment Charges O2 Evaluation - Outpatient 09/08/21 09/08/21 08:10 08:20 Home O2 Evaluation Test Phase Exercise Resting Oxygen Delivery Nasal Cannula Room Air Oxygen Flow Rate (L/min) 2 Pulse Oximetry (90-100 %) 90 94 Pulse Rate (60-100 beats/min) 108 H 64 Activity Tolerance Poor Rating of Perceived Dyspnea (PD) +4 Severe Difficulty, Participant Cannot Continue Rate of Perceived Exertion (PE) 17 Very Hard Treatment Charges
== END 2021-09-08 07:38 | disposition home or self-care (01) ==
PROVIDERS: PCP Internal Medicine; Visit Provider Nurse Practitioner Family
DX: J44.9 Chronic obstructive pulmonary disease, unspecified (principal); J96.11 Chronic respiratory failure with hypoxia; J96.12 Chronic respiratory failure with hypercapnia
CPT/HCPCS: 36415; 85610; 94618

== ENCOUNTER 2021-10-18 10:24 | Outpatient (RCR) | payer MEDICARE, SELFPAY ==
[2021-07-21 08:16] LABS: INR 2.1; Prothrombin Time 22.7 Seconds (11.1-14.7)
[2021-08-23 12:17] LABS: INR 1.7; Prothrombin Time 19.9 Seconds (11.1-14.7)
[2021-09-08 08:54] LABS: INR 2.5; Prothrombin Time 26.4 Seconds (11.1-14.7)
[2021-10-18 11:19] LABS: INR 2.4; Prothrombin Time 25.7 Seconds (11.1-14.7)
== END 2021-10-19 23:59 | disposition home or self-care (01) ==
LOC: ANHLAB 10:24
PROVIDERS: PCP Internal Medicine; Visit Provider Internal Medicine Cardiovascular Disease
DX: Z51.81 Encounter for therapeutic drug level monitoring (principal); I48.91 Unspecified atrial fibrillation; E78.5 Hyperlipidemia, unspecified; Z79.01 Long term (current) use of anticoagulants
CPT/HCPCS: 36415; 80053; 80061; 85610

== ENCOUNTER 2021-12-14 09:01 | Outpatient (CLI) | payer MEDICARE, SELFPAY ==
--- NOTE | ~2021-12-14 | CT_ITS ---
EXAMINATION: CT diagnostic chest wo con DATE: 12/14/2021 09:28 INDICATION: Malignant neoplasm of the lung TECHNIQUE: Computed tomography (CT) of the chest was performed without intravenous contrast. The dose -length product (DLP) was 504.09 mGy-cm. Automated exposure control and iterative reconstruction tech [employer] were employed. COMPARISON: 12/03/2020 FINDINGS: There is chronic volume loss in the right hemithorax, consistent with right partial pneumon ectomy. A stable small right hydropneumothorax. There is moderate emphysema. There are chronic airspa ce opacities of the right lung base, unchanged. Synthetic material is again noted in the right pleura l space. There are chronic right-sided rib deformities related to surgical change. No pathologically enlarged thoracic lymph nodes are identified. The heart size is normal. A chronic 7.3 cm mass of the right adrenal gland containing fat, soft tissue, and calcification is stable and consistent with a my elolipoma. There are bridging osteophytes at multiple levels in the spine, consistent with diffuse id iopathic skeletal hyperostosis (DISH). IMPRESSION: 1. Stable surgical changes in the right hemithorax, consistent with treatment for lung cancer. Reviewed, dictated and finalized at location F. IMPRESSION: 1. Stable surgical changes in the right hemithorax, consistent with treatment f or lung cancer.
== END 2021-12-14 09:02 | disposition home or self-care (01) ==
PROVIDERS: PCP Internal Medicine; Visit Provider Internal Medicine Hematology & Oncology
DX: C34.10 Malignant neoplasm of upper lobe, unspecified bronchus or lung (principal)
CPT/HCPCS: 71250

== ENCOUNTER 2022-01-05 07:50 | Outpatient (CLI) | payer MEDICARE, SELFPAY ==
[2022-01-05 08:05] VITALS: PULSE 81; O2SAT 96
[2022-01-05 08:10] VITALS: PULSE 108; O2SAT 85
[2022-01-05 08:15] VITALS: PULSE 106; O2SAT 86
[2022-01-05 08:20] VITALS: PULSE 110; O2SAT 88
[2022-01-05 08:25] VITALS: PULSE 112; O2SAT 91
[2022-01-05 08:40] VITALS: PULSE 85; O2SAT 96
--- NOTE | 2022-01-05 09:25 | HOMEO2EVAL ---
Evaluation was performed at [facility] Home Oxygen Evaluation RC: Home Oxygen (O2) Evaluation Start: 01/05/22 09:20 Freq: Status: Active Protocol: RPE Activity Type Activity Date Activity User E-Sign Co-Sign Detail Recorded Client Recorded Date Recorded By Document 01/05/22 08:05 [email or web address] [email or web address] 01/05/22 09:24 DJO Document 01/05/22 08:10 [email or web address] [email or web address] 01/05/22 09:24 DJO Document 01/05/22 08:15 [email or web address] [email or web address] 01/05/22 09:24 DJO Document 01/05/22 08:20 [email or web address] [email or web address] 01/05/22 09:24 DJO Document 01/05/22 08:25 [email or web address] [email or web address] 01/05/22 09:24 DJO Document 01/05/22 08:40 [email or web address] [email or web address] 01/05/22 09:24 DJO 01/05/22 01/05/22 01/05/22 08:05 08:10 08:15 Home O2 Evaluation Test Phase Resting Exercise Exercise Oxygen Delivery Room Air Room Air Nasal Cannula Oxygen Flow Rate (L/min) 1 Pulse Oximetry (90-100 %) 96 85 L 86 L Pulse Rate (60-100 beats/min) 81 108 H 106 H Activity Tolerance Rate of Perceived Exertion (PE) Ambulation Distance (feet) Ambulation Distance (meters) Treatment Charges O2 Evaluation - Outpatient 01/05/22 01/05/22 01/05/22 08:20 08:25 08:40 Home O2 Evaluation Test Phase Exercise Exercise Resting Oxygen Delivery Nasal Cannula Nasal Cannula Room Air Oxygen Flow Rate (L/min) 2 3 Pulse Oximetry (90-100 %) 88 L 91 96 Pulse Rate (60-100 beats/min) 110 H 112 H 85 Activity Tolerance Poor Rate of Perceived Exertion (PE) 15 Hard Ambulation Distance (feet) 50 Ambulation Distance (meters) 15.23 Treatment Charges
== END 2022-01-05 07:51 | disposition home or self-care (01) ==
LOC: ANHPFT 07:51
PROVIDERS: PCP Internal Medicine; Visit Provider Nurse Practitioner Family
DX: R06.02 Shortness of breath (principal)
CPT/HCPCS: 94618

== ENCOUNTER 2022-02-01 10:38 | Outpatient (CLI) | payer MEDICARE, SELFPAY ==
[2022-02-01 11:15] LABS: Alanine Aminotransferase 13 U/L (6-50); Albumin Level 3.6 g/dL (3.5-5.1); Alkaline Phosphatase 81 U/L (38-126); Aspartate Amino Transferase 23 U/L (17-59); Bilirubin,Total 1.1 mg/dL (0.2-1.3); Blood Urea Nitrogen 16 mg/dL (9-20); Calcium 8.2 mg/dL (8.4-10.2); Carbon Dioxide > 40 mmol/L (22-30); Chloride 96 mmol/L (98-107); Cholesterol 142 mg/dL (0-200); Estimated Glomerular Filt Rate > 60; Glucose 95 mg/dL (65-110); HDL Direct 43 mg/dL; Potassium 4.4 mmol/L (3.4-5.0); Sodium 136 mmol/L (137-145); Triglycerides 86 mg/dL (<150)
[2022-02-01 11:18] LABS: LDL Cholesterol Direct 72 mg/dL
== END 2022-02-01 10:39 | disposition home or self-care (01) ==
LOC: ANHLAB 10:40
PROVIDERS: PCP Internal Medicine; Visit Provider Nurse Practitioner
DX: E78.5 Hyperlipidemia, unspecified (principal)
CPT/HCPCS: 36415; 80053; 80061

== ENCOUNTER 2022-02-01 10:42 | Outpatient (RCR) | payer MEDICARE, SELFPAY ==
[2021-11-17 12:05] LABS: INR 2.8; Prothrombin Time 28.2 Seconds (11.1-14.7)
[2021-12-01 08:10] LABS: INR 2.5; Prothrombin Time 25.9 Seconds (11.1-14.7)
[2021-12-28 11:33] LABS: Prothrombin Time 21.9 Seconds (11.1-14.7)
[2022-02-01 11:10] LABS: INR 1.8
== END 2022-02-15 23:59 | disposition home or self-care (01) ==
LOC: ANHLAB 10:42
PROVIDERS: PCP Internal Medicine; Visit Provider Internal Medicine Cardiovascular Disease
DX: I48.91 Unspecified atrial fibrillation (principal); E78.5 Hyperlipidemia, unspecified
CPT/HCPCS: 36415; 80053; 80061; 85610

== ENCOUNTER 2022-04-19 12:20 | Outpatient (RCR) | payer MEDICARE, SELFPAY ==
[2022-03-08 10:36] LABS: INR 2.4; Prothrombin Time 25.3 Seconds (11.1-14.7)
== END 2022-06-06 23:59 | disposition home or self-care (01) ==
LOC: ANHLAB 12:20
PROVIDERS: PCP Internal Medicine; Visit Provider Internal Medicine Cardiovascular Disease
DX: I48.91 Unspecified atrial fibrillation (principal)
CPT/HCPCS: 36415; 85610

== ENCOUNTER 2022-07-19 11:00 | Outpatient (CLI) | payer MEDICARE, SELFPAY ==
[2022-07-19 12:00] LABS: Basophils Percent Auto 0.2 % (0.2-1.2); Eosinophils Absolute Auto 0.1 K/mm3 (0-0.3); Eosinophils Percent Auto 0.9 % (0-4.4); Hematocrit 47.4 % (42.0-52.0); Hemoglobin 15.3 g/dL (14.0-18.0); Immature Granulocyte Absolute 0.05 K/mm3 (0.00-0.031); Immature Granulocyte Percent A 0.5 % (0-0.5); Lymphocytes Absolute Auto 0.97 K/mm3 (0.9-3.2); Mean Corpuscular HGB Conc 32.3 g/dl (32-36); Mean Corpuscular Hemoglobin 31.2 pg (26-34); Mean Corpuscular Volume 96.5 fl (80-100); Mean Platelet Volume 9.9 fl (7.4-10.4); Monocytes Percent Auto 10.4 % (2.6-8.5); Neutrophils Absolute Auto 7.6 K/mm3 (1.3-6.7); Platelet Count Result 200 k/mm3 (150-375); Red Blood Count 4.91 M/mm3 (4.6-6.20); Red Cell Distribution Width 13.5 % (11.5-14.5); White Blood Count 9.7 K/mm3 (4.5-10.0)
[2022-07-19 12:19] LABS: Alanine Aminotransferase 16 U/L (6-50); Albumin Level 3.6 g/dL (3.5-5.1); Alkaline Phosphatase 74 U/L (38-126); Anion Gap 5 mmol/L (8-16); Aspartate Amino Transferase 22 U/L (17-59); Bilirubin,Total 0.7 mg/dL (0.2-1.3); Blood Urea Nitrogen 17 mg/dL (9-20); Calcium 8.4 mg/dL (8.4-10.2); Carbon Dioxide 36 mmol/L (22-30); Chloride 98 mmol/L (98-107); Estimated Glomerular Filt Rate > 60; Glucose 87 mg/dL (65-110); Potassium 4.6 mmol/L (3.4-5.0); Sodium 139 mmol/L (137-145)
== END 2022-07-19 11:01 | disposition home or self-care (01) ==
PROVIDERS: PCP Internal Medicine; Visit Provider Internal Medicine Cardiovascular Disease
DX: I50.812 Chronic right heart failure (principal); Z79.01 Long term (current) use of anticoagulants
CPT/HCPCS: 36415; 80053; 85025

== ENCOUNTER 2022-08-17 10:45 | Outpatient (CLI) | payer MEDICARE, SELFPAY ==
[2022-08-17 11:23] LABS: Alanine Aminotransferase 17 U/L (6-50); Albumin Level 3.8 g/dL (3.5-5.1); Alkaline Phosphatase 84 U/L (38-126); Anion Gap 5 mmol/L (8-16); Aspartate Amino Transferase 24 U/L (17-59); Bilirubin,Total 0.7 mg/dL (0.2-1.3); Blood Urea Nitrogen 19 mg/dL (9-20); Calcium 8.2 mg/dL (8.4-10.2); Carbon Dioxide 35 mmol/L (22-30); Chloride 97 mmol/L (98-107); Cholesterol 161 mg/dL (0-200); Estimated Glomerular Filt Rate > 60; Glucose 101 mg/dL (65-110); HDL Direct 53 mg/dL; Potassium 4.3 mmol/L (3.4-5.0); Sodium 137 mmol/L (137-145); Triglycerides 123 mg/dL (<150)
[2022-08-17 11:35] LABS: LDL Cholesterol Direct 71 mg/dL
[2022-08-17 11:53] LABS: Prostate Specific Antigen 1.8 ng/mL (< OR = 4.0)
== END 2022-08-17 10:46 | disposition home or self-care (01) ==
LOC: ANHLAB 10:46
PROVIDERS: PCP Internal Medicine; Visit Provider Internal Medicine
DX: Z51.81 Encounter for therapeutic drug level monitoring (principal); Z79.899 Other long term (current) drug therapy; I10 Essential (primary) hypertension; E78.5 Hyperlipidemia, unspecified; Z12.5 Encounter for screening for malignant neoplasm of prostate
CPT/HCPCS: 36415; 80053; 80061; 84153; G0103

== ENCOUNTER 2022-08-17 10:48 | Outpatient (RCR) | payer MEDICARE, SELFPAY ==
[2022-06-08 08:18] LABS: INR 2.5; Prothrombin Time 26.3 Seconds (11.1-14.7)
[2022-07-19 12:10] LABS: INR 2.3; Prothrombin Time 24.7 Seconds (11.1-14.7)
[2022-08-17 11:23] LABS: INR 3.2; Prothrombin Time 31.7 Seconds (11.1-14.7)
== END 2022-09-06 23:59 | disposition home or self-care (01) ==
LOC: ANHLAB 10:48
PROVIDERS: PCP Internal Medicine; Visit Provider Internal Medicine Cardiovascular Disease
DX: I48.91 Unspecified atrial fibrillation (principal); E78.5 Hyperlipidemia, unspecified; Z12.5 Encounter for screening for malignant neoplasm of prostate
CPT/HCPCS: 36415; 80053; 80061; 84153; 85025; 85610; G0103

== ENCOUNTER 2022-09-26 10:09 | Outpatient (CLI) | payer MEDICARE, SELFPAY ==
--- NOTE | ~2022-09-26 | CT_ITS ---
Clinical Indication: Lung cancer CT Scan of the Chest with Contrast: Technique: Contiguous sections were acquired throughout the chest after intravenous administration of 75 cc of Omnipaque 350. Dose reduction technique was used on this scan by utilizing automated exposu re control and iterative reconstruction technique. The dose-length product (DLP) was 338.18 mGy-cm. COMPARISON: 12/14/2021 Findings: There is stable right-sided volume loss related to partial right pneumonectomy. Stable small right hy dropneumothorax present. Surgical material again noted near the pleural lining at the anterior, mid r ight hemithorax. There is mild scarring in the aerated right lung. There is chronic right basilar ate lectasis or scarring, unchanged. Left lung is hyperinflated, clear. Stable rightward mediastinal shift related to volume loss. No mediastinal lymphadenopathy. Mediastina l vascular structures and soft tissues are unremarkable. Images through the upper abdomen reveal stable large mixed attenuation mass at the right adrenal glan d, with soft tissue density, calcium, and fat, consistent with benign myelolipoma.. Impression: No evidence for active malignancy or metastatic disease. No change from prior exam. Stable postoperative changes of the right lung with associated small stable right hydropneumothorax. Stable large right adrenal myelolipoma. Reviewed, dictated and finalized at location M. NG BENDER Impression: No evidence for active malignancy or metastatic disease. No change from prior e xam. Stable postoperative changes of the right lung with associated small stable rig ht hydropneumothorax. Stable large right adrenal myelolipoma.
[2022-09-26 10:37] LABS: Estimated Glomerular Filt Rate > 60
== END 2022-09-26 10:10 | disposition home or self-care (01) ==
LOC: ANHIMG 10:12
PROVIDERS: PCP Internal Medicine; Visit Provider Internal Medicine Hematology & Oncology
DX: C34.90 Malignant neoplasm of unspecified part of unspecified bronchus or lung (principal)
CPT/HCPCS: 71260; Q9967

== ENCOUNTER 2022-12-06 10:07 | Outpatient (RCR) | payer MEDICARE, SELFPAY ==
[2022-09-15 13:08] LABS: INR 2.4; Prothrombin Time 25.6 Seconds (11.1-14.7)
[2022-12-06 10:54] LABS: INR 2.2; Prothrombin Time 23.6 Seconds (11.1-14.7)
== END 2022-12-14 23:59 | disposition home or self-care (01) ==
LOC: ANHLAB 10:07
PROVIDERS: PCP Internal Medicine; Visit Provider Internal Medicine Cardiovascular Disease
DX: I48.91 Unspecified atrial fibrillation (principal)
CPT/HCPCS: 36415; 85610

== ENCOUNTER 2023-02-20 10:14 | Outpatient (CLI) | payer MEDICARE, SELFPAY ==
[2023-02-20 12:46] LABS: Alanine Aminotransferase 17 U/L (6-50); Albumin Level 3.7 g/dL (3.5-5.1); Alkaline Phosphatase 70 U/L (38-126); Aspartate Amino Transferase 26 U/L (17-59); Blood Urea Nitrogen 21 mg/dL (9-20); Calcium 8.3 mg/dL (8.4-10.2); Carbon Dioxide > 40 mmol/L (22-30); Chloride 96 mmol/L (98-107); Cholesterol 133 mg/dL (0-200); Estimated Glomerular Filt Rate > 60; Glucose 87 mg/dL (65-110); HDL Direct 41 mg/dL; Potassium 4.5 mmol/L (3.4-5.0); Sodium 136 mmol/L (137-145); Triglycerides 83 mg/dL (<150)
[2023-02-20 12:57] LABS: LDL Cholesterol Direct 65 mg/dL
== END 2023-02-20 10:15 | disposition home or self-care (01) ==
PROVIDERS: PCP Family Medicine; Visit Provider Internal Medicine
DX: I10 Essential (primary) hypertension (principal); Z79.899 Other long term (current) drug therapy; E78.5 Hyperlipidemia, unspecified
CPT/HCPCS: 36415; 80053; 80061

== ENCOUNTER 2023-03-27 10:28 | Outpatient (CLI) | payer MEDICARE, SELFPAY ==
--- NOTE | ~2023-03-27 | XR_ITS ---
Clinical Indication: Lung cancer PA and lateral views of the chest: Comparison: 03/11/2019 Findings: There is stable, chronic right-sided volume loss with probable pleural thickening or other parenchymal consolidation present. There is probable retraction of the right hilum. Left lung is hype rexpanded. Probable focal scarring or atelectasis at the left lung base.. Cardiomediastinal silhouet te is within normal limits. Bones and soft tissues are unremarkable. Impression: No acute abnormality. Chronic changes, which appears stable from prior exam, including extensive right-sided volume loss, r etraction of the right hilum, and right pleural thickening and/or peripheral consolidation. Probable focal scarring or atelectasis left lung base. Left lung is hyperinflated. Reviewed, dictated and finalized at location . Impression: No acute abnormality. Chronic changes, which appears stable from prior exam, including extensive righ t-sided volume loss, retraction of the right hilum, and right pleural thickenin g and/or peripheral consolidation. Probable focal scarring or atelectasis left lung base. Left lung is hyperinflat ed.
== END 2023-03-27 10:29 | disposition home or self-care (01) ==
PROVIDERS: PCP Nurse Practitioner; Visit Provider Internal Medicine Hematology & Oncology
DX: C34.90 Malignant neoplasm of unspecified part of unspecified bronchus or lung (principal)
CPT/HCPCS: 71046

== ENCOUNTER 2023-05-17 10:16 | Outpatient (RCR) | payer MEDICARE, SELFPAY ==
[2023-03-07 11:20] LABS: INR 2.1; Prothrombin Time 25.2 Seconds (11.1-14.7)
[2023-04-10 11:27] LABS: INR 1.8; Prothrombin Time 21.9 Seconds (11.1-14.7)
[2023-05-17 10:53] LABS: INR 2.5; Prothrombin Time 28.8 Seconds (11.1-14.7)
== END 2023-05-21 23:59 | disposition home or self-care (01) ==
LOC: ANHLAB 10:16
PROVIDERS: PCP Family Medicine; Visit Provider Internal Medicine Cardiovascular Disease
DX: Z51.81 Encounter for therapeutic drug level monitoring (principal); Z79.01 Long term (current) use of anticoagulants
CPT/HCPCS: 36415; 85610

== ENCOUNTER 2023-07-07 10:26 | Outpatient (RCR) | payer MEDICARE, SELFPAY ==
[2023-06-26 12:00] LABS: INR 1.8; Prothrombin Time 22.1 Seconds (11.1-14.7)
[2023-07-07 12:04] LABS: INR 2.1; Prothrombin Time 25.5 Seconds (11.1-14.7)
== END 2023-09-24 23:59 | disposition home or self-care (01) ==
LOC: ANHLAB 10:26
PROVIDERS: PCP Nurse Practitioner; Visit Provider Internal Medicine Cardiovascular Disease
DX: Z51.81 Encounter for therapeutic drug level monitoring (principal); Z79.01 Long term (current) use of anticoagulants
CPT/HCPCS: 36415; 85610

== ENCOUNTER 2023-08-25 11:22 | Outpatient (CLI) | payer MEDICARE, SELFPAY ==
[2023-08-25 12:23] LABS: Alanine Aminotransferase 18 U/L (6-50); Albumin Level 3.4 g/dL (3.5-5.1); Alkaline Phosphatase 74 U/L (38-126); Aspartate Amino Transferase 26 U/L (17-59); Blood Urea Nitrogen 16 mg/dL (9-20); Calcium 8.5 mg/dL (8.4-10.2); Carbon Dioxide > 40 mmol/L (22-30); Chloride 95 mmol/L (98-107); Cholesterol 134 mg/dL (0-200); Estimated Glomerular Filt Rate > 60; Glucose 92 mg/dL (65-110); HDL Direct 40 mg/dL; Potassium 4.7 mmol/L (3.4-5.0); Sodium 136 mmol/L (137-145); Triglycerides 81 mg/dL (<150)
[2023-08-25 12:32] LABS: LDL Cholesterol Direct 71 mg/dL
== END 2023-08-25 11:23 | disposition home or self-care (01) ==
PROVIDERS: PCP Nurse Practitioner; Visit Provider Nurse Practitioner
DX: E78.5 Hyperlipidemia, unspecified (principal)
CPT/HCPCS: 36415; 80053; 80061

== ENCOUNTER 2023-10-05 09:23 | Outpatient (CLI) | payer MEDICARE, SELFPAY ==
--- NOTE | ~2023-10-05 | CT_ITS ---
Clinical Indication: Lung cancer CT Scan of the Chest with Contrast: Technique: Contiguous sections were acquired throughout the chest after intravenous administration of 75 cc of Omnipaque 350. Dose reduction technique was used on this scan by utilizing automated exposu re control and iterative reconstruction technique. The dose-length product (DLP) was 528.62 mGy-cm. COMPARISON: 09/26/2022 Findings: There is no evidence of any significant mediastinal, hilar or axillary lymphadenopathy. There is no f illing defect in the pulmonary arterial tree to suggest pulmonary embolus. There is no evidence of ao rtic dissection or aneurysm. There is no evidence of pleural or pericardial effusion. Stable probable prior right upper lobectomy of right upper lobe volume loss and chronic small right a pical pneumothorax or cavitary area. Stable scarring or distortion at the right lung base with mild p leural thickening. Left lung remains clear. Images through the upper abdomen reveal stable large right adrenal myelolipoma. Cystic mass the pancr eatic head is present, probably unchanged since 2017. Tiny gallstones are present. Impression: No significant change from prior exam. No evidence for recurrent malignancy or metastatic disease. Stable right upper lobectomy with right-sided volume loss, chronic small right apical pneumothorax, a nd right lung scarring. Stable findings in the upper abdomen including large right adrenal myelolipoma and cystic mass the pa ncreatic head. Reviewed, dictated and finalized at [facility]. 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 No evidence for recurrent malignancy or metastatic disease. Stable right upper lobectomy with right-sided volume loss, chronic small right apical pneumothorax, and right lung scarring. Stable findings in the upper abdomen including large right adrenal myelolipoma and cystic mass the pancreatic head.
[2023-10-05 10:18] LABS: Estimated Glomerular Filt Rate > 60
== END 2023-10-05 09:24 | disposition home or self-care (01) ==
PROVIDERS: PCP Nurse Practitioner; Visit Provider Internal Medicine Hematology & Oncology
DX: C34.90 Malignant neoplasm of unspecified part of unspecified bronchus or lung (principal); Z90.2 Acquired absence of lung [part of]
CPT/HCPCS: 71260; Q9967

== ENCOUNTER 2024-04-11 10:35 | Outpatient (CLI) | payer MEDICARE, SELFPAY ==
[2024-04-11 10:54] LABS: Basophils Percent Auto 0.3 % (0.2-1.2); Eosinophils Absolute Auto 0.1 K/mm3 (0-0.3); Hematocrit 48.3 % (42.0-52.0); Immature Granulocyte Absolute 0.05 K/mm3 (0.00-0.031); Immature Granulocyte Percent A 0.4 % (0-0.5); Lymphocytes Absolute Auto 0.75 K/mm3 (0.9-3.2); Lymphocytes Percent Auto 6.5 % (18.3-44.2); Mean Corpuscular HGB Conc 31.1 g/dl (32-36); Mean Corpuscular Hemoglobin 31.1 pg (26-34); Mean Platelet Volume 9.8 fl (7.4-10.4); Monocytes Absolute Auto 1.2 K/mm3 (0.1-0.6); Neutrophils Absolute Auto 9.5 K/mm3 (1.3-6.7); Neutrophils Percent Auto 81.8 % (45.5-73.1); Platelet Count Result 208 k/mm3 (150-375); Red Blood Count 4.83 M/mm3 (4.6-6.20); Red Cell Distribution Width 13.1 % (11.5-14.5); White Blood Count 11.6 K/mm3 (4.5-10.0)
[2024-04-11 10:59] LABS: Blood Urea Nitrogen 16 mg/dL (8-26); Carbon Dioxide 33 mmol/L (22-30); Chloride 96 mmol/L (98-109); Estimated Glomerular Filt Rate > 60; Glucose 76 mg/dL (70-105); Ionized Calcium (POC) 1.16 mmol/L (1.11-1.31); Potassium 4.2 mmol/L (3.5-4.9); Sodium 139 mmol/L (138-146)
== END 2024-04-11 10:36 | disposition home or self-care (01) ==
LOC: ANHLAB 10:37
PROVIDERS: PCP Nurse Practitioner; Visit Provider Internal Medicine Hematology & Oncology
DX: C34.90 Malignant neoplasm of unspecified part of unspecified bronchus or lung (principal)
CPT/HCPCS: 36415; 80047; 85025

== ENCOUNTER 2024-04-12 07:17 | Outpatient (CLI) | payer MEDICARE, SELFPAY ==
--- NOTE | ~2024-04-12 | CT_ITS ---
EXAMINATION: CT chest abdomen pelvis w con DATE: 04/12/2024 07:48 INDICATION: Malignant neoplasm of lung. TECHNIQUE: Computed tomography (CT) of the chest, abdomen, and pelvis was performed with 100 mL Omnip aque 350 intravenous contrast. Automated exposure control and iterative reconstruction technique were employed. The dose-length product was 1390.99 mGy-cm. COMPARISON: Chest CT 10/05/2023 FINDINGS: CHEST CT: There is mild emphysema. There are changes of right upper lobectomy. There is volume loss and atelect asis and scarring in right lung. There are chronic airspace opacities with cavitation in right middle lobe, which is displaced to the right lung apex. Right-sided pleural thickening is noted with implan t. No pleural effusion. There are old healed right rib fractures. There are nodules in the thyroid me asuring up to 13 mm, likely not clinically significant. Cardiomegaly is noted. No pericardial effusio n. There are no pathologically enlarged lymph nodes. There is mild chronic height loss of multiple ve rtebral bodies. There are bridging endplate osteophytes at multiple levels in the spine, consistent w ith diffuse idiopathic skeletal hyperostosis (DISH). ABDOMEN/PELVIS CT: The liver is normal. There are gallstones in the gallbladder, which is normal in size. The spleen is normal. There are calcifications in the pancreas, consistent with chronic pancreatitis. There is a 3. 0 cm cyst in the head of the pancreas, likely a pseudocyst. There is a 7.7 cm mass containing fat in right adrenal gland, consistent with a myelolipoma. The left adrenal gland is normal. There is cortic al thinning of the kidneys. There are cysts in the kidneys measuring up to 4.3 cm on the left. 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 There is a stent graft in involving abdominal aorta and the common iliac arteries, ext ernal iliac arteries, and right internal iliac artery. There is coil embolization of left internal il iac artery. There is a right inguinal hernia containing fat. The prostate is moderately enlarged. The re is diverticulosis of the colon without evidence of diverticulitis. There are no dilated loops of b owel. There are no pathologically enlarged lymph nodes. There is no free intraperitoneal fluid. There is internal fixation of proximal right femur. 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 There is severe right hip osteoarthritis. There is mild chronic height loss of multiple vertebral bodies. The re is severe lumbar spondylosis. IMPRESSION: 1. No evidence of metastatic disease. Reviewed, dictated and finalized at location A.
== END 2024-04-12 07:18 | disposition home or self-care (01) ==
LOC: ANHIMG 07:21
PROVIDERS: PCP Nurse Practitioner; Visit Provider Internal Medicine Hematology & Oncology
DX: C34.90 Malignant neoplasm of unspecified part of unspecified bronchus or lung (principal)
CPT/HCPCS: 71260; 74177; Q9967

== ENCOUNTER 2024-04-15 12:34 | Outpatient (CLI) | payer MEDICARE, SELFPAY ==
[2024-04-15 14:02] LABS: Alanine Aminotransferase 14 U/L (6-50); Albumin Level 3.6 g/dL (3.5-5.1); Alkaline Phosphatase 81 U/L (38-126); Aspartate Amino Transferase 24 U/L (17-59); Bilirubin,Total 0.8 mg/dL (0.2-1.3); Blood Urea Nitrogen 21 mg/dL (9-20); Calcium 8.9 mg/dL (8.4-10.2); Carbon Dioxide > 40 mmol/L (22-30); Chloride 90 mmol/L (98-107); Cholesterol 137 mg/dL (0-200); Estimated Glomerular Filt Rate > 60; Glucose 147 mg/dL (65-110); HDL Direct 49 mg/dL; Potassium 4.8 mmol/L (3.4-5.0); Sodium 135 mmol/L (137-145); Triglycerides 92 mg/dL (<150)
[2024-04-15 14:15] LABS: LDL Cholesterol Direct 66 mg/dL
== END 2024-04-15 12:35 | disposition home or self-care (01) ==
LOC: ANHLAB 12:38
PROVIDERS: PCP Nurse Practitioner; Visit Provider Nurse Practitioner
DX: E78.5 Hyperlipidemia, unspecified (principal)
CPT/HCPCS: 36415; 80053; 80061

== ENCOUNTER 2024-05-09 14:28 | Outpatient (CLI) | payer MEDICARE, SELFPAY | END 2024-05-09 14:29 | disposition home or self-care (01) | LOC: ANHLAB 14:35 | PROVIDERS: PCP Nurse Practitioner; Visit Provider Nurse Practitioner | DX: E87.8 Other disorders of electrolyte and fluid balance, not elsewhere classified (principal) | CPT/HCPCS: 36415 ==

== ENCOUNTER 2024-05-11 11:18 | Outpatient (CLI) | payer MEDICARE, SELFPAY ==
[2024-05-11 11:43] LABS: Anion Gap 6 mmol/L (4-12); Blood Urea Nitrogen 21 mg/dL (9-20); Calcium 8.6 mg/dL (8.4-10.2); Carbon Dioxide 34 mmol/L (22-30); Chloride 96 mmol/L (98-107); Estimated Glomerular Filt Rate > 60; Glucose 100 mg/dL (65-110); Sodium 136 mmol/L (137-145)
== END 2024-05-11 11:19 | disposition home or self-care (01) ==
LOC: ANHLAB 11:23
PROVIDERS: PCP Nurse Practitioner; Visit Provider Nurse Practitioner
DX: E87.8 Other disorders of electrolyte and fluid balance, not elsewhere classified (principal)
CPT/HCPCS: 36415; 80048

== ENCOUNTER 2024-10-28 08:09 | Outpatient (CLI) | payer MEDICARE, SELFPAY ==
--- NOTE | ~2024-10-28 | CT_ITS ---
EXAMINATION: CT chest abdomen pelvis w con DATE: 10/28/2024 08:40 INDICATION: Malignant neoplasm of lung. TECHNIQUE: Computed tomography (CT) of the chest, abdomen, and pelvis was performed with 100 mL Omnip aque 350 intravenous contrast. Automated exposure control and iterative reconstruction technique were employed. The dose-length product was 1200.39 mGy-cm. COMPARISON: CT 04/12/2024, 09/26/2022 FINDINGS: CHEST CT: There are changes of right upper lobectomy. There is volume loss and atelectasis and scarring in righ t lung. There are chronic airspace opacities with cavitation in right middle lobe, which is displaced to the right lung apex. There are chronic airspace opacities in basilar right lower lobe, consistent with scarring. There is mild atelectasis in left lung. There is mild emphysema. No pleural effusion. There is chronic right-sided pleural thickening with implanted material. Cardiomegaly is noted. Ther e are coronary artery calcifications. No pericardial effusion. There are nodules in the thyroid measu ring up to 11 mm, likely not clinically significant. There are old healed bilateral rib fractures. Th ere are bridging endplate osteophytes at multiple levels in the spine, consistent with diffuse idiopa thic skeletal hyperostosis (DISH). ABDOMEN/PELVIS CT: There is a 9 mm cyst in the liver. There are gallstones in the gallbladder which is normal in size. T he spleen is normal. There are calcifications in the pancreas, consistent with chronic pancreatitis. There is a chronic 3.4 cm cyst in the head of the pancreas, likely a pseudocyst. Left adrenal gland i s normal. There is a 8.2 cm mass in right adrenal gland containing fat, consistent with a myelolipoma . There is cortical thinning of the kidneys. There are cysts in the kidneys measuring up to 4.0 cm on the left. There is a right inguinal hernia containing fat in the appendix and a small portion of the bladder. There is a left inguinal hernia containing fat. The prostate is moderately enlarged. There is diverticulosis of the colon without evidence of diverticulitis. There are no dilated loops of serjio l. There is a 3.6 cm fusiform aneurysm of infrarenal aorta. There is a stent graft in the aorta, righ t common iliac artery, right internal and external iliac arteries, left common iliac artery, and left external iliac artery. 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 There is emb olization material in left internal iliac artery. There is hyperdensity in the proximal aortic aneury sm sac, consistent with endoleak. There are no pathologically enlarged lymph nodes. There is no free intraperitoneal fluid. There is an old healed fracture of proximal right femur with internal fixation . 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 There is severe right hip osteoarthritis and moderate left hip osteoporosis. There is severe lumb ar spondylosis. There are chronic compression fractures of L1 and L2. IMPRESSION: 1. No evidence of metastatic disease. 2. Stable 3.6 cm fusiform aneurysm of infrarenal aorta with endoleak. Reviewed, dictated and finalized at location B.
--- OUTSIDE RECORDS SUMMARY | 2024-10-28 08:24 | XMS_ITS ---
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 Mailed survivorship asco answers, and care plan with included breathing exercises. Lung Cancer Survivorship Care Plan Provided by [facility] on 12/15/17 General Information Patient Name: Wesley Keene Patient : 1945 Care Team Medical Oncologist: Dr. Bertin Em Thoracic Surgeon: Dr. Manish Yeager Primary Care Physician: Chace Stafford MD, Finance Accounting Internship: Dr. Nicky Hernandez Cancer Staging Stage IIA ALK Results if performed: negative EGFR Results if performed: negative Treatment Summary Chemotherapy CARBOplatin and PEMEtrexed Completed June 2017 Surgery Right upper lobe lobectomy and thoracotomy with right middle lobe resection Date: 11/24/16 and 12/07/16 Potential late effects of treatment(s): Surgical Treatment: These are some side effects that may be a result of your colon surgery. You may have one or more of these problems or you may not experience any of these problems. Please contact your doctor if you have: Shortness of breath Need for supplemental oxygen Post thoracotomy pain syndrome Chemotherapy: Numbness and tingling in fingers and toes (peripheral neuropathy) Memory changes Need for supplemental oxygen Persistent symptoms or side effects at completion of treatment: yes Types: some fatigue still, takes a nap daily, however fatigue significantly improved. Complaints of shortness of breath until primary care physican took him off of a blood pressure pill. Currently experiencing shortness of breath due to a cold but states it is improving and he is not concerned about it at this time. Will call primary care physician or brush holder inspector if breathing worsens or does not continue to get better. Cancer Survivors may experience issues with the area listed below. If you have any concerns in these or other areas, please speak with your doctors or nurses to find out how you can get help with them. Potential Areas of Concern Emotional and mental health: no Physical functioning: no Memory or concentration loss: no Fatigue: no Insurance issues: no Parenting: no Spiritual Issues: no Weight changes: no School/work: no Fertility: no Stopping smoking: no Financial advice or assistance: no Sexual functioning: no Other: yes, shortness of breath. See comments above. Resources Provided to Patient Referrals Provided: There are no referrals needs at this time. To call primary care physician or Dr. Em if any referrals are requested. Follow-up and Survivorship Care Follow Up Care When / How Often? Coordinating Provider Medical Oncology Visits: Every 3-6 months for first 3 years. Every 6 months years 4 & 5. Annually after year 5. Dr. Em Finance Accounting Internship: As needed or directed. Dr. Hernandez Chest CT w/contrast: Every 3-6 months for [address] Hernandez or Dr. Em Low Dose Chest CT : Annually 2 years or more after diagnosis Dr. Hernandez Colonoscopy As directed Primary care physician Non cancer related preventive care Continue your routine visits to your primary care physician for preventative care. Colon screening colonoscopyevery 5-10 years stool guiac tests eat fruits and vegetables Heart Health weight management cholesterol management blood sugar control blood pressure [facility] health DEXA every 2 years calcium with vitamin D weight bearing exercise Call your doctor if you have any of these signs and symptoms: cough, dyspnea on exertion and shortness of breath Additional Resources: Patients may have many varied questions and concerns after their cancer treatment ends. A list of local resources is provided below to assist you. [facility] Debbie Cottrell and Michael [address] [place] [address] [facility] [address] [place] [address] [facility] [place] [address] [place] [address] [facility] [address], [address] [place] [address] [facility] [place] [address] [place] [address] [facility] Survivorship Training Classes Please call [phone] to register. Each session is limited to 10 people. [facility] Conference Room First Floor [address] [place] [address] [facility]. Conference Room Third Floor [address] [place] [address] [facility] [place] [address] [place]. [address] Services: Acupuncture, Auriculotherapy, Chiropractic, Guided Imagery, Healing Touch, Massage Therapy, Nutritional Counseling, Physical Therapy (manual and traditional) and Reflexology [facility] [address] [place]. [address] Services: Acupuncture, Auriculotherapy, Chiropractic, and Massage Therapy [facility] and Therapy [facility] [address] [facility], [address] [place] [address] Services: Acupuncture, Auriculotherapy, Guided Imagery, Healing Touch, Massage Therapy, Lymphedema, Physical Therapy and Reflexology [facility] Medicine - [place] [address] [place]. [address] Services: Acupuncture and Chiropractic [facility] [address] [place] [address] [employer] [email or web address] Help line 24 hours, 7 days/week, phone [phone] [place] [address] Hours Monday - Monday 8:30 am- 5 pm Services include: information and referrals, educational materials transportation assistance nutritional supplements educational and support programs [employer] Guidelines on Nutrition and Physical Activity For Cancer Prevention 1. Achieve and maintain a healthy weight. Avoid weight gain during cancer treatment, whether you are at a healthy weight or overweight. Weight loss after recovery from treatment may benefit survivors who are overweight or obese. 2. Be physically active. Studies show that exercise is safe during cancer treatment, and can improve many aspects of health, including muscle strength, balance, fatigue, and depression. Physical activity after diagnosis is linked to living longer and a reduced risk of the cancer returning among people living with cancer, including breast, colorectal, prostate, and ovarian cancer. Aim for 30 min of exercise 5 days a week. 3. Eat a healthy diet, with an emphasis on fruits, vegetables, and whole grains. The most health benefits are associated with a diet high in fruits, vegetables, whole grains, poultry, and fish, and low in refined grains, red meat and processed meat (such as hot dogs), desserts, high-fat dairy products and Irish fries. Most of the studies about cancer and diet have focused on breast cancer. Studies show that taking vitamins, herbs and other nutritional supplements often does not help cancer patients live longer, and may even shorten life. Before taking any supplement, discuss it with your health care provider. 4. Don't smoke 5. If you drink alcohol, limit your intake. Drink no more than 1 drink per day for women or 2 per day for men. 6. Sunscreen use Exposure to ultraviolet rays is the leading cause of skin cancer. It is important to protect your skin. Sun damage builds up over time. It is important to use sunscreen every day. You should use a sunscreen that is water resistant and has an SPF of 30 or above. Remember to also protect your lips and eyes. 7. Routine blood pressure, cholesterol, and glucose monitoring. While many cancer survivors worry about their cancer coming back most cancer survivors are more likely to develop other chronic medical conditions such as high blood pressure, heart disease, and diabetes. Be sure to start and/or continue to see your primary care physician regularly. 8. Vaccines The flu is a respiratory infection caused by viruses. While most people with the flu get better on their own it can be serious. It can cause many medical complications and sometimes even . Be sure to get an annual influenza vaccine (flu shot). Pneumococcal diseases can cause serious infections in the lungs and bloodstream. A pneumococcal vaccine is recommended for all adults 65 years of age and older. It is also recommended for some younger adults who have chronic health conditions. Be sure and check with your doctor if you need a pneumococcal vaccine. 9. Routine Dental Care Your oral health may be more important than you think. It can contribute to various medical diseases and conditions. Daily oral hygiene helps decrease our risk of tooth decay and gum disease. Be sure to brush twice a day, floss daily, and see your dentist regularly for checkups and cleanings. 10. Eye Health Our eyes are called the windows to the world. Make sure you take good care of your. Adults should have their eyes examined every 2 years until age 60. We should then undergo eye exams yearly. Individuals with contact lenses, glasses, or who are at high risk for eye problems (i.e. diabetes, family history of eye disease) should be seen more frequently. Breathing exercises: This is an exercise that improves air movement in and out of your lungs. This helps to increase the amount of oxygen in your whole body. This is basically what you are doing when using your incentive spirometer (plastic breathing tool) 1. Breathe in through your nose for 4 seconds. 2. Hold your breath for 5-8 seconds. 3. Breathe out through pursed lips (like when you are whistling) for 8 seconds. 4. Repeat 10 times an hour. Breathing exercises while walking These tips will help you breathe easier while you are walking While walking on a flat surface, keep your mouth closed and breathe in and out of your nose. While walking on an incline (hill), breathe in through your nose and breathe out through pursed lips (shape your lips like you are whistling). While climbing stairs, breathe out through pursed lips with each step. Recovering from an episode of shortness of breath (from coughing or physical activity) 1. Tilt your chin down to your chest. 2. Breathe out through your lips in short bursts (forceful and quick) 5-10 times. When your neck muscles feel less stressed, breathe in through your nose. 3. Breathe out through pursed lips 3 times. 4. Breathe in through your nose for 4 seconds then breathe out through an open mouth making an a h sound for 8 seconds. Important caution: this is a summary document whose purpose is to review the highlights of the cancer treatment for this patient. This does not replace information available in the medical record, a complete medical history provided by the patient, examination and diagnostic information, or educational materials that describe strategies for coping with cancer and cancer therapies in detail. Both medical science and an individual s health care needs change, and therefore this document is current only as of the date of preparation. This summary document does not prescribe or recommend any particular medical treatment or care for cancer or any other disease and does not substitute for the independent medical judgment of the treating professional. Chronic atrial fibrillation 12/18/2016 Benign hypertension 09/30/2016 Pure hypercholesterolemia 09/30/2016 Lung mass 09/30/2016 Acute respiratory failure with hypoxia Atelectasis of right lung Current Treatment and Therapy Plans No current plan information found. Past Treatment and Therapy Plans No past plan information found. Lifetime Dose Tracking * Chemical Lifetime Dose Automatic Entry Manual Entr y Effective Dose 10.1 mSv 10.1 mSv 0 mSv Total DLP 781 DLP 781 DLP 0 DLP CTDIvol Max 19.8 mGy 19.8 mGy 0 mGy CTDIvol Min 19.8 mGy 19.8 mGy 0 mGy
--- OUTSIDE RECORDS SUMMARY | 2024-10-28 08:24 | XMS_ITS | Clinical Summary ---
Author Organization [facility] Address [address] [place] [address] Care Team Providers Care Library Serials Assistant Name Role Phone Olvin Roberts MD Primary Care Provider [phone] Allergies No known active allergies Medications pravastatin (PRAVACHOL) 40 mg tablet Take 40 mg by mouth late in the day. Active aspirin (ECOTRIN EC) 81 mg Tablet, Delayed Release (E.C.) Take 81 mg by mouth daily. Active FLUZONE HIGH-DOSE , PF, 180 mcg/0.5 mL Syringe syringe ADM 0.5ML IM UTD 0 06/24/20 18 Active warfarin (COUMADIN) 2 mg tablet 6 10/11/19 19 Active potassium chloride (K-TAB) 20 mEq Extended Release tablet TK 1 T PO QD WF 5 10/03/19 19 Active PROAIR HFA 90 mcg/actuation inhaler INHALE 2 PUFFS QID PRN 6 08/19/20 18 Active metoprolol tartrate (LOPRESSOR) 100 mg tablet Take 100 mg by mouth 2 times daily. Active mometasone/formo terol (DULERA INHALATION) Take by inhalation. Active tamsulosin (FLOMAX) 0.4 mg capsule Take 0.4 mg by mouth daily. Active alendronate (FOSAMAX) 70 mg tablet Take 70 mg by mouth every 7 days. empty stomach before other meds,with 8oz of water, stay upright 30 min Active furosemide (LASIX) 40 mg tablet Take 40 mg by mouth daily. Active spironolactone (ALDACTONE) 25 mg tablet 11/27/19 20 Active acetaminophen (TYLENOL) 500 mg Capsule Take 1,000 mg by mouth. 02/21/20 19 Active lidocaine PF 1% (XYLOCAINE MPF) Solution lidocaine (PF) 10 mg/mL (1 %) injection solution In office injection administered by the provider Active fluticasone propion-salmeter oL 232-14 mcg/actuation Aerosol Powdr Breath Activated 08/05/20 20 Active ipratropium-albu teroL (DUONEB) 0.5 mg-3 mg(2.5 mg base)/3 mL Solution for Nebulization USE 3 ML VIA NEBULIZER TWICE DAILY NEEDED FOR SHORTNESS OF BREATH OR WHEEZING 09/01/19 22 Active LORazepam (ATIVAN) 1 mg tabletIndication s:Malignant neoplasm of lung, unspecified laterality, unspecified part of lung (CMS/HCC) Take 1 Tablet (1 mg) by mouth see administration instructions. 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 Mailed survivorship asco answers, and care plan with included breathing exercises. Lung Cancer Survivorship Care [facility]17 General Information Patient Name: Wesley Keene Patient : 1945 Care Team Medical Oncologist: Dr. Bertin Em Thoracic Surgeon: Dr. Manish Yeager Primary Care Physician: Chace Stafford MD, Paint Line Operator: Dr. Nicky Hernandez Cancer Staging Stage IIA [...] time. Will call primary care physician or pecan gatherer if breathing worsens or does not continue [...] 5. Annually after year 5. Dr. Em Paint Line Operator: As needed or directed. Dr. Hernandez Chest [...] cholesterol management blood sugar control blood pressure controlFlorence [facility] Healthcaree health DEXA every 2 years calcium with vitamin D weight bearing exercise Call your doctor if you have any of these signs and symptoms: cough, dyspnea on exertion and shortness of breath Additional Resources: Patients may have many varied questions and concerns after their cancer treatment ends. A list of local resources is provided below to assist you. [facility] Debbie Morales [address] [place] [address] [facility] [address] [place] [address] [facility] - [place] [address] [place] [address] [facility] [address] [place] [address] [facility] - [place] [address] [facility] [place] [address] [facility] Survivorship Training Classes Please call [phone] to register. Each session is limited to 10 people. [facility] Conference Room First Floor [address] [place] [address] [facility] Conference Room Third Floor [id number] [place], [place] [address] [address] [facility] Services Michael[address] [address], [address], [place]. [address] Services: Acupuncture, Auriculotherapy, Chiropractic, Guided Imagery, Healing Touch, Massage Therapy, Nutritional Counseling, Physical Therapy (manual and traditional) and Reflexology [facility] [address], [address] [place]. [address] Services: Acupuncture, Auriculotherapy, Chiropractic, and Massage Therapy [facility] Therapy Services [facility] [address] [facility], [address] [place] [address] Services: Acupuncture, Auriculotherapy, Guided Imagery, Healing Touch, Massage Therapy, Lymphedema, Physical Therapy and Reflexology [facility] - [place] [address], [address] [place]. [address] Services: Acupuncture and Chiropractic [facility] [address] [place] [address]. [address] [place] [address] [employer] [email or web address] Help line 24 hours, 7 days/week, phone [phone] [place] [address] Hours Aguilar - Monday 8:30 am- 5 pm Services include: information and referrals, educational materials transportation assistance nutritional supplements educational and support programs [employer] Guidelines on Nutrition and Physical [...] hot dogs), desserts, high-fat dairy products and Guinean fries. Most of the studies about cancer [...] failure with hypoxia Atelectasis of right lung Encounters Date Type Department Care Team Description 09/18/2024 External Device Data ST[facility] ABSTRACTION Provider, Abstract 09/12/2024 External Device Data [facility] ABSTRACTION Provider, Abstract from Last 3 Months Family History Relation Name Status Comments Brother Alive Father Mother Alive Social History Tobacco Use Types Packs/Day Years Used Date Smoking Tobacco: Former Cigarettes 1 55 0 09/21/1961 - 09/21/2016 Smokeless Tobacco: Never Tobacco Cessation:Counseling Given: Not Answered Alcohol Use Standard Drinks/Week Comments Yes 0 (1 standard drink = 0.6 oz pur e alcohol) Sex and Gender Information Value Date Recorded Sex Assigned at Not on file 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 Gender Identity Not on file Sexual Orientation Not on file Last Filed Vital Signs Vital Sign Reading Time Taken Comments Blood Pressure 88/62 05/14/2024 12:17 PM CDT pt states has low bp takes medication for it Pulse 83 04/11/2024 10:57 AM CDT Temperature 36.6 C (97.8 F) 04/11/2024 10:57 AM CDT Respiratory Rate 20 04/11/2024 10:5 7 AM CDT Oxygen Saturation 92% 04/11/2024 10: 57 AM CDT Inhaled Oxygen Concentration - - Weight 92.5 kg (204 lb) 05/14/2024 12:1 7 PM CDT Height 177.8 cm (5' 10 ) 05/14/2024 12: 17 PM CDT Body Mass Index 29.27 05/14/2024 12:17 PM CDT Plan of Treatment Upcoming Encounters Date Type Department Care Team (Late st Contact Info) Description 11/06/2024 11:15 AM CDT Office Visit [facility] Oncology and Hematology - [place] [address] [place] [address] Bertin Em MD [address] [facility] [address] [facility] [address] [place] [address] Health Maintenance Due Date Last Done Comments PNEUMOCOCCAL VACCINE 50+ YEA RS (1 of 2 - PCV) 1964 Traditional Medicare (ACO) A nnual Wellness Visit 1964 ZOSTER VACCINE (1 of 2) 1995 RSV VACCINE (60+ or ) (1 - 1-dose 75+ series) 2020 INFLUENZA VACCINE (#1) 2024 0, 06/23/2018, 05/28/2017 DTAP/TDAP/TD VACCINES (2 - T d or Tdap) 02/09/2029 02/09/2019 Medical Devices Implanted Type Area Parts Designer Device Identifier Shelf Expiration Date Model / Serial / Lot Adh Bioglue 10ml [id number] - [id number] Implanted:Qt y: 1 on 12/07/2016 by Manish Yeager MD at [facility] Biological Right: Chest [employer] 03/15/2017 [id number] / / [id number] [place] Ptfe Thck [id number] - [id number] Implanted:Qt y: 1 on 12/07/2016 by Manish Yeager MD at [facility] Graft Right: Chest [employer] 02/17/2018 [id number] / / [id number] Sealant Tisseel 10ml [id number] - [id number] Implanted:Qt y: 1 on 11/24/2016 by Manish Yeager MD at [facility] Sealant Right: Chest [employer] [id number] 04/20/2018 [id number] / [id number] / [id number] Sealant Tisseel 10ml [id number] - [id number] Implanted:Qt y: 1 on 12/07/2016 by Manish Yeager MD at [facility] Right: Chest [employer] 04/20/2018 [id number] / / [id number] Rt Knee Wire Insurance MEDICARE PART A AND B [employer] SUPP MEDICARE PART A AND B [facility] SUPP Advance Directives For more information, please contact: [phone] * Full Code (Latest Code Status on File) Date Activated Date Inactivated Comments 12/16/2016 3:18 PM 12/21/2016 4:41 PM * Full Code Date Activated Date Inactivated Comments 12/08/2016 12:26 PM 12/15/2016 5:21 PM * Full Code Date Activated Date Inactivated Comments 12/07/2016 8:50 AM 12/08/2016 12:26 PM * Full Code Date Activated Date Inactivated Comments 12/05/2016 2:25 PM 12/07/2016 8:50 AM * Full Code Date Activated Date Inactivated Comments 11/29/2016 3:53 PM 12/05/2016 2:25 PM Care Teams Library Serials Assistant Relationship Specialty Start Date End Date Olvin Roberts MD [address] [place] [id number] PCP - General Family Practice 04/06/23
--- OUTSIDE RECORDS SUMMARY | 2024-10-28 08:25 | XMS_ITS | Encounter Summary ---
Author Organization [facility] Address [address] [place] [address] Care Team Providers Care Hide Mill Man Name Role Phone Olvin Roberts MD Primary Care Provider [phone] Reason for Visit * Reason Comments Medication Refill Encounter Details Date Type Department Care Team (Late Contact Info) Description 10/31/2018 Refill [facility] Oncology and Hematology [facility] [address] [place] [address] Bertin Em MD [address] [place] [address] Social History Tobacco Use Types Packs/Day Years Used Date Smoking Tobacco: Former Cigarettes 1 55 0 09/21/1961 - 09/21/2016 Smokeless Tobacco: Never Alcohol Use Standard Drinks/Week Comments Yes 0 (1 standard drink = 0.6 oz pur e alcohol) Sex and Gender Information Value Date Recorded Sex Assigned at Not on file Legal Sex Male 1:49 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 Gender Identity Not on file Sexual Orientation Not on file documented as of this encounter Plan of Treatment Upcoming Encounters Date Type Department Care Team (Late Contact Info) Description 11/06/2024 11:15 AM CDT Office Visit [facility] Oncology and Hematology [facility] [address] [place] [address] Bertin Em MD [address] [place] [address] documented as of this encounter Visit Diagnoses Not on filedocumented in this encounter Care Teams Hide Mill Man Relationship Specialty Start Date End Date Olvin Roberts MD [address] [place] [address] PCP - General Family Practice 04/06/23 documented as of this encounter
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
--- OUTSIDE RECORDS SUMMARY | 2024-10-28 08:25 | XMS_ITS | Encounter Summary ---
Author Organization [facility] Facility Care Team Providers Care Homemaker Companion Name Role Phone Chace Stafford MD Primary Care Provider [phone] Phillip Bañuelos NP Primary Care Provider [phone] Jimmy Means DO Primary Care Provider [phone] Nestor Oden MD Unavailable [phone] Olvin Roberts MD Primary Care Provider [phone] Encounter Details Date Type Department Care Team (Latest Contact Info) Description 10/11/2016 Orders Only [facility] CLINCONV ProviderAydin MD [address] [place] [address] Social History Tobacco Use Types Packs/Day Years Used Date Smoking Tobacco: Never Assessed Sex and Gender Information Value Date Recorded Sex Assigned at Not on file Legal 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 us Historical Provider Final Res ult documented in this encounter Visit Diagnoses Not on filedocumented in this encounter Care Teams Homemaker Companion Relationship Specialty Start Date End Date Chace Stafford MD [address] [place] [address] PCP - General Internal Medicine 08/17/18 01/06/19 Phillip Bañuelos NP [address] [facility] [address] [place] [address] PCP - General Nurse Practitioner 01/07/19 02/09/19 Jimmy Means DO [address] [facility] [address] [place] [address] PCP - General 02/10/19 07/04/23 Olvin Roberts MD [address] [facility] [address] [place] [address] PCP - General Family Practice 07/05/23 Nestor Oden MD [address] [facility] [address] [place] [address] Surgeon Vascular Surgery 10/28/22 documented as of this encounter
--- OUTSIDE RECORDS SUMMARY | 2024-10-28 08:25 | XMS_ITS | Encounter Summary ---
Author Organization [facility] Facility Care Team Providers Care Maintenance Associate Name Role Phone Chace Stafford MD Primary Care Provider [phone] Phillip Bañuelos NP Primary Care Provider [phone] Jimmy Means DO Primary Care Provider [phone] Nestor Oden MD Unavailable [phone] Olvin Roberts MD Primary Care Provider [phone] Encounter Details Date Type Department Care Team (Latest Contact Info) Description 10/18/2016 Orders Only [facility] CLINCONV ProviderAydin MD [address] [place] [address] Social History Tobacco Use Types Packs/Day Years Used Date Smoking Tobacco: Never Assessed Sex and Gender Information Value Date Recorded Sex Assigned at Not on file Legal Sex Male 11:00 AM EXCAVATOR 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 us Historical Provider Final Res ult documented in this encounter Visit Diagnoses Not on filedocumented in this encounter Care Teams Maintenance Associate Relationship Specialty Start Date End Date Chace Stafford MD [address] [place] [address] PCP - General Internal Medicine 08/17/18 01/06/19 Phillip Bañuelos NP [address] [facility] [address] [place] [address] PCP - General Nurse Practitioner 01/07/19 02/09/19 Jimmy Means DO [address] [facility] [address] [place] [address] PCP - General 02/10/19 07/04/23 Olvin Roberts MD [address] [facility] [address] [facility] [place] [address] PCP - General Family Practice 07/05/23 Nestor Oden MD [address] [facility] [address] [facility] [place] [address] Surgeon Vascular Surgery 10/28/22 documented as of this encounter
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
--- OUTSIDE RECORDS SUMMARY | 2024-10-28 08:25 | XMS_ITS | Encounter Summary ---
Author Organization [facility] Facility Care Team Providers Care Garage Door Installer Name Role Phone Chace Stafford MD Primary Care Provider [phone] hPillip Bañuelos NP Primary Care Provider [phone] Jimmy Means DO Primary Care Provider [phone] Nestor Oden MD Unavailable [phone] Olvin Roberts MD Primary Care Provider [phone] Encounter Details Date Type Department Care Team (Latest Contact Info) Description 02/28/2018 Orders Only [facility] CLINCONV Provider, MD Aydin [address] [place] [address] Social History Tobacco Use Types Packs/Day Years Used Date Smoking Tobacco: Never Assessed Sex and Gender Information Value Date Recorded Sex Assigned at Not on file Legal Sex Male 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 us Historical Provider Final Res ult documented in this encounter Visit Diagnoses Not on filedocumented in this encounter Care Teams Garage Door Installer Relationship Specialty Start Date End Date Chace Stafford MD [address] [facility] [address] [place] [address] PCP - General Internal Medicine 08/17/18 01/06/19 Phillip Bañuelos NP [address] [facility] [address] [place] [address] PCP - General Nurse Practitioner 01/07/19 02/09/19 Jimmy Means DO [address] [facility] [address] [place] [address] PCP - General 02/10/19 07/04/23 Olvin Roberts MD [address] [facility] [address] [place] [address] PCP - General Family Practice 07/05/23 Nestor Oden MD [address] [facility] [address] [place] [address] Surgeon Vascular Surgery 10/28/22 documented as of this encounter
--- OUTSIDE RECORDS SUMMARY | 2024-10-28 08:25 | XMS_ITS | Encounter Summary ---
Author Organization [facility] Facility Care Team Providers Care Dance Critic Name Role Phone Chace Stafford MD Primary Care Provider [phone] Phillip Bañuelos NP Primary Care Provider [phone] Jimmy Means DO Primary Care Provider [phone] Nestor Oden MD Unavailable [phone] Olvin Roberts MD Primary Care Provider [phone] Encounter Details Date Type Department Care Team (Latest Contact Info) Description 08/30/2017 Orders Only [facility]G CLINCONV Provider, MD Aydin [address] [place] [address] Social History Tobacco Use Types Packs/Day Years Used Date Smoking Tobacco: Never Assessed Sex and Gender Information Value Date Recorded Sex Assigned at Not on file Legal Sex Male 11:00 AM PUBLIC RELATIONS STUDIES DIRECTOR Gender Identity Not on file Sexual Orientation Not on file documented as of this encounter Plan of Treatment Not on file documented as of this encounter Procedures Procedure Name Priority Date/Time Associated Diagnosis Comments SCAN - LABS 08/30/2017 12:00 AM PUBLIC RELATIONS STUDIES DIRECTOR documented in this encounter Results * SCAN - LABS (08/30/2017 12:00 AM PUBLIC RELATIONS STUDIES DIRECTOR) Narrative 08/30/2017 12:00 AM PUBLIC RELATIONS STUDIES DIRECTOR Ordered by an unspecified provider. us Historical Provider Final Res ult documented in this encounter Visit Diagnoses Not on filedocumented in this encounter Care Teams Dance Critic Relationship Specialty Start Date End Date Chace Stafford MD [address] [place] [address] PCP - General Internal Medicine 08/17/18 01/06/19 Phillip Bañuelos NP [address] [facility] [address] [place] [address] PCP - General Nurse Practitioner 01/07/19 02/09/19 Jimmy Means DO [address] [facility] [address] [place] [address] PCP - General 02/10/19 07/04/23 Olvin Roberts MD [address] [facility] [address] [facility] [place] [address] PCP - General Family Practice 07/05/23 Nestor Oden MD [address] [facility] [address] [facility] [place] [address] Surgeon Vascular Surgery 10/28/22 documented as of this encounter
--- OUTSIDE RECORDS SUMMARY | 2024-10-28 08:25 | XMS_ITS | Clinical Summary ---
Author Organization [facility] Address [address] [place] [address] Care Team Providers Care Bowstring Maker Name Role Phone Nestor Oden MD Unavailable [phone] WillardOlvin MD Primary Care Provider [phone] Medications pravastatin (PRAVACHOL) 40 mg tablet Take 1 tablet (40 mg total) by mouth daily Active acetaminophen 500 mg capsule Take 2 capsules (1,000 mg total) by mouth every 6 (six) hours as needed (TAKE FIRST) 1 capsule 9 Active tamsulosin (FLOMAX) 0.4 mg extended release capsule Take 1 capsule (0.4 mg total) by mouth daily with dinner 1 capsule 9 Active POTASSIUM CHLORIDE ER 20 mEq CR tabletIndicatio ns:Chronic right-sided heart failure (HCC) Take 1 tablet (20 mEq total) by mouth 2 (two) times a day 60 tablet 11 9 Active alendronate (FOSAMAX) 70 mg tablet 9 Active PROAIR HFA 90 mcg/actuation inhaler 5 9 Active fluticasone propion-salmete roL (AIRDUO RESPICLICK) 232-14 mcg/actuation inhaler 1 Active LORazepam (ATIVAN) 0.5 mg tablet TK 1 T PO 1 HOUR PRIOR TO CATSCAN 0 Active ALPRAZolam (XANAX) 0.5 mg tablet Take 1 tab 1 hour before scan. Take 2nd tab upon arrival for scan. 2 tablet 2 Active Additional Information Patient not taking.Reported on 09/11/2024 ipratropium-alb uteroL (DUO-NEB) 0.5-2.5 mg/3 mL nebulizer solution 2 Active lidocaine (XYLOCAINE) 10 mg/mL (1 %) injection lidocaine (PF) 10 mg/mL (1 %) injection solution In office injection administered by the provider Active triamcinolone (Kenalog) 10 mg/mL injection Kenalog 10 mg/mL suspension for injection In office injection administered by the provider Active Breztri Aerosphere 160-9-4.8 mcg/actuation HFA aerosol inhaler 3 Active Eliquis 5 mg tablet TAKE 1 TABLET(5 MG) BY MOUTH TWICE DAILY 60 tablet 11 4 Active furosemide (LASIX) 40 mg tabletIndicatio ns:Chronic right-sided heart failure (HCC) TAKE 1 TABLET(40 MG) BY MOUTH DAILY 90 tablet 1 4 Active spironolactone (ALDACTONE) 25 mg tablet TAKE 1 TABLET(25 MG) BY MOUTH DAILY 90 tablet 5 Active metoprolol tartrate (LOPRESSOR) 25 mg immediate release tabletIndicatio ns:Chronic respiratory failure with hypoxia, on home O2 therapy (HCC) Take 0.5 tablets (12.5 mg total) by mouth 2 (two) times a day 60 tablet 11 5 Active Active Problems Problem Noted Date Diagnosed [...] 10/11/2018 Assessment & Plan (10/22/2020 8:15 PM PYTHON JAVA DEVELOPER): Impression: Chronic atrial fibrillation on daily anticoagulation. Plan: Continue daily anticoagulation and metoprolol for rate control as directed by his primary care physician and transit survey worker. Assessment & Plan (02/11/2019 12:01 AM CDT): [...] Yeager Primary Care Physician: Chace Stafford MD, Program Director Air Talent: Dr. Nicky Hernandez Cancer Staging Stage IIA [...] time. Will call primary care physician or digital media strategist if breathing worsens or does not continue [...] 5. Annually after year 5. Dr. Em Program Director Air Talent: As needed or directed. Dr. Hernandez Chest [...] cholesterol management blood sugar control blood pressure [facility] DEXA every 2 years calcium [...] [facility] Serves Debbie Morales [address], [address] [place] [address] Phillip Norman [facility] [address] [place] [address] [facility] Therapy Services [address] [place] [address] [facility] Therapy [facility] [address], [address] [place] [address] [facility] Therapy [facility] [address] [place] [address] [employer] [facility] Training Classes Please call [phone] to register. Each session is limited to 10 people. Phillip Austin [facility] Conference Room First Floor [address] [place] [address] Debbie Noland Bld[address] Conference Room Third Floor [address] [place] [address] [facility] Integrative Medicine & Healing Therapies [facility] Integrative Medicine and Therapy Services [address], [address] [place]. [address] Services: Acupuncture, Auriculotherapy, Chiropractic, Guided Imagery, Healing Touch, Massage Therapy, Nutritional Counseling, Physical Therapy (manual and traditional) and Reflexology [facility] [address], [address] [place]. [address] Services: Acupuncture, Auriculotherapy, Chiropractic, and Massage Therapy [facility] Integrative Medicine and Therapy Services [facility] [place] [address], [address] [place] [address] Services: Acupuncture, Auriculotherapy, Guided Imagery, Healing Touch, Massage Therapy, Lymphedema, Physical Therapy and Reflexology [facility] [address], [address] [place]. [address] Services: Acupuncture and Chiropractic [facility] [address] [place] [address] [employer] [email or web address] Help line 24 hours, 7 days/week, phone [phone] [address] [place] [address] Hours Monday - Monday 8:30 am- 5 pm Services include: ? information and referrals, educational materials ? transportation assistance ? nutritional supplements ? educational and support programs [employer] Guidelines on Nutrition and Physical [...] hot dogs), desserts, high-fat dairy products and Barbadian fries. Most of the studies about cancer [...] surveillance Assessment & Plan (10/22/2020 8:14 PM PYTHON JAVA DEVELOPER): Impression: Patient continues do well status post endovascular repair of his infrarenal abdominal aortic aneurysm. Surveillance CTA revealed widely patent endo repair with no evidence of endoleak or stent migration with a stable [place] aneurysm sac. Plan: Recommend ongoing risk factor modifications and follow-up in 1 year for re-evaluation and repeat CTA abdomen and pelvis surveillance to evaluate his endovascular AAA repair. Benign hypertension 09/30/2016 Assessment & Plan (10/22/2020 8:14 PM PYTHON JAVA DEVELOPER): .Impression: Stable chronic hypertension. Plan: Medications reviewed [...] patent with no leak. One year duplex. Resolved Problems Problem Noted Date Diagnosed Date Resolved Date Anticoagulated on Coumadin 02/12/2019 0 02/16/2019 Personal history of lung cancer 02/12/2019 02/16/2019 S/P aorto-bifemoral bypass surgery 02/12/2019 02/16/2019 S/P right upper and middle lobectomy of lung 9 02/16/2019 Encounters Date Type Department Care Team Description 09/11/2024 10:30 AM PYTHON JAVA DEVELOPER Office Visit [facility] Cardiology [address] [place] [address] Peyman Gaona MD Chronic right-sided heart failure (HCC) (Primary Dx); Atrial fibrillation with controlled ventricular response (HCC); Chronic anticoagulation; Chronic respiratory failure with hypoxia, on home O2 therapy (HCC); Status post endovascular aneurysm repair (EVAR) from Last 3 Months Immunizations Immunization Administration Dates Next Due Influenza, Quadrivalent, Hig h Dose, Preservative Free, Intrr 06/26/2020 Influenza, Trivalent, High D ose, Split, Preservative Free, Intramuscular 06/23/2018,06/23/2018,05/28/2017 Tdap 02/09/2019 Surgical History Surgery Date Site/Laterality Comments ENDOSCOPIC AORTIC REPAIR PATELLA FRACTURE SURGERY Right LOBECTOMY Right RUL and RML resection 09/22 cancer CARDIOVERSION 12/19/2018 - 01/18/2019 ABDOMINAL AORTIC ANEURYSM REPAIR W/ ENDOLUMINAL GRAFT 10/18/2016 ILIAC ARTERY ANEURYSM REPAIR 10/18/2016 Left Medical History Medical History Date Comments Hypertension Hyperlipidemia Enlarged prostate Small cell lung cancer (HCC) COPD (chronic obstructive pulmonary disease) (HC C) Coronary artery disease Afib (HCC) HLD (hyperlipidemia) Chronic respiratory failure with hypoxia, on home oxygen therapy (HCC) 02/12/2019 Anticoagulated on Coumadin 02/12/2019 Personal history of lung cancer 02/12/2019 Frail elderly 02/12/2019 S/P aorto-bifemoral bypass surgery 02/12/2019 S/P right upper and middle lobectomy of lung 01/20 S/P aorto-bifemoral bypass surgery 02/12/2019 Personal history of lung cancer 02/12/2019 S/P right upper and middle lobectomy of lung 01/20 Family History Medical History Relation Name Comments Hypertension Father Relation Name Status Comments Father Mother Alive Social History Tobacco Use Types Packs/Day Years Used Date Smoking Tobacco: Former Cigarettes Q uit: 2017 Smokeless Tobacco: Never Tobacco Cessation:Counseling Given: Not Answered Alcohol Use Standard Drinks/Week Comments Yes 0 (1 standard drink = 0.6 oz pur e alcohol) 2-3 per month Sex and Gender Information Value Date Recorded Sex Assigned at Not on file Legal Sex Male 11:00 AM PYTHON JAVA DEVELOPER Gender Identity Not on file Sexual Orientation Not on file Obstetrics History Last Filed Vital Signs Vital Sign Reading Time Taken Comments Blood Pressure 88/60 09/11/2024 10:41 AM PYTHON JAVA DEVELOPER Pulse 54 09/11/2024 10:41 AM PYTHON JAVA DEVELOPER Temperature 36.3 C (97.4 F) 09/24/2019 1:26 PM PYTHON JAVA DEVELOPER Respiratory Rate 15 06/24/2020 10:44 AM PYTHON JAVA DEVELOPER Oxygen Saturation 84% 09/11/2024 10:41 AM PYTHON JAVA DEVELOPER Inhaled Oxygen Concentration - - Weight 88.9 kg (196 lb) 09/11/2024 10:41 AM PYTHON JAVA DEVELOPER Height 177.8 cm (5' 10 ) 09/11/2024 10:41 AM PYTHON JAVA DEVELOPER Body Mass Index 28.12 09/11/2024 10:41 AM PYTHON JAVA DEVELOPER Plan of Treatment Health Maintenance Due Date Last Done Comments Depression Screening 1945 Hepatitis C Screening 1945 Hepatitis B Screening 1963 Pneumococcal vaccine 65+ (1 of 2 - PCV) 1964 Zoster Vaccine (1 of 2) 1995 Well Visit 65+ 2010 Fall Risk Assessment 06/24/2021 06/24/2020 Influenza Vaccine (#1) 2024 , 06/23/2018, 06/23/2018, Additional history exists DTaP/Tdap/Td Vaccine (2 - Td or Tdap) 02/09/2029 02/09/2019 Abdominal Aortic Aneurysm (A AA) Screen Completed 11/15/2023, 11/03/2022, 11/03/2022, Additional history exists Medical Devices Implanted Type Area Product Safety Technician Device Identifier Shelf Expiration Date Model / Serial / Lot [employer]/Ort ho [id number] Intertan 10mm 20cm Trochanter 130d Short Nail Intramedullary - [id number] Implanted:Qty: 1 on 02/11/2019 by Humera Damon MD at [facility] Right: Femur [employer]o [id number] 10/30/2028 [id number] / / [id number] [employer]/Ort ho [id number] Intertan 115mm 110mm Lag Compression Interlock Integrated - [id number] Implanted:Qty: 1 on 02/11/2019 by Humera Damon MD at [facility] Right: Femur [employer] [id number] 09/24/2028 [id number] / / [id number] [employer]/Ort ho [id number] 5mm 37.5mm Low Profile Internal Hex Femur Screw Bone Trigen - [id number] Implanted:Qty: 1 on 02/11/2019 by Humera Damon MD at [facility] Right: Femur [employer] [id number] 12/02/2028 [id number] / / [id number] Procedures Procedure Name Priority Date/Time Associated Diagnosis Comments CTA ABDOMEN PELVIS W WO CONTRAST Schedule Routine, Read Routine (OP Routine) 10/28/2021 8:40 AM PYTHON JAVA DEVELOPER Abdominal aortic aneurysm (AAA) without rupture from Last 3 Months or Most Recently Relevant to Health Maintenance Results * CTA Abdomen Pelvis W WO Contrast (10/28/2021 8:40 AM PYTHON JAVA DEVELOPER) Anatomical Region Laterality Modality Body N/A Computed Tomogra phy 10/28/2021 9:07 AM PYTHON JAVA DEVELOPER Narrative 10/28/2021 9:36 AM PYTHON JAVA DEVELOPER EXAM DESCRIPTION: CTA ABDOMEN PELVIS REASON FOR STUDY: Follow-up for abdominal aortic aneurysm status post endoluminal stent graft repair 5 years ago. TECHNIQUE: CTA scan of the abdomen and pelvis performed without and with intravenous and without oral contrast using helical scanning technique with dynamic intravenous contrast injection. Precontrast, arterial, and portal venous phase images of the abdomen and pelvis were acquired. Images reviewed with lung, soft tissue and bone windows. Reconstructed coronal and sagittal MPR images reviewed. All images stored on PACS. 3D MIP images rendered on scanning unit and reviewed at time of interpretation. Automated exposure control was used as a dose optimization technique for this examination. CONTRAST TYPE/DOSE: 100 mL Optiray 350 injected via right antecubital fossa, 20 gauge IV COMPARISON: 09/24/2020; 09/11/2019 FINDINGS: VASCULATURE: No dissection, intramural hematoma, rupture, or penetrating atherosclerotic ulcer. Moderate diffuse atherosclerotic calcification again seen in the abdominal aorta and bilateral iliac vessels. CELIAC TRUNK: No flow limiting stenosis, dissection, or aneurysm. 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 SUPERIOR MESENTERIC ARTERY: No flow limiting stenosis, dissection, or aneurysm. RIGHT RENAL ARTERY: No flow limiting stenosis, dissection, or aneurysm. LEFT RENAL ARTERY: No flow limiting stenosis, dissection, or aneurysm. INFERIOR MESENTERIC ARTERY: No flow limiting stenosis, dissection, or aneurysm. Back fills the excluded lumen of the abdominal aortic aneurysm. AORTA: Again seen is an infrarenal abdominal aortic aneurysm status post aorto bi-iliac endoluminal stent graft repair. The proximal landing zones are again seen below the left renal arteries. The distal landing zones are in the bilateral external iliac arteries. An overlapping stent also extends into the right internal iliac artery, with coil embolization of the left internal iliac artery, unchanged. No interval stent graft migration. A new type 2 endoleak is seen due to retrograde flow from the PAOLO measuring 10 x 5 millimeter. The aneurysm now measures 3.2 cm AP x 3.1 cm transverse, unchanged from prior study. 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 ILIAC ARTERIES: No flow limiting stenosis, dissection, or aneurysm. LOWER CHEST: No significant pulmonary abnormalities. No effusion. Mild cardiomegaly is stable. Persistent scarring in the right lung base with mild pleural thickening redemonstrated, unchanged. No pleural effusion or consolidation. LIVER: Normal size. No identified cystic or solid masses. GALLBLADDER: Stones again seen. No wall thickening or pericholecystic fluid. BILE DUCTS: No intrahepatic or extrahepatic ductal dilatation. SPLEEN: Normal size. No focal lesions. PANCREAS: Multiple punctate parenchymal calcifications again seen compatible with prior pancreatitis. A 2.5 cm cystic lesion is again seen in the pancreatic head, previously 2 cm in 2020 and 2.6 cm in 2020. No adjacent inflammation or peripancreatic fluid collections. Pancreatic duct not dilated. ADRENALS: A 7.2 x 5.1 cm right angiomyolipoma is unchanged. Left adrenal gland is normal. KIDNEYS/URINARY TRACT: No identified significant cystic or solid masses. No stones. No hydronephrosis or hydroureter. Symmetric enhancement. A 4 cm cyst in the superior pole of the left kidney is unchanged. Other additional small cysts also seen in both kidneys. Normal bladder. GI: No dilated bowel loops. No obvious wall thickening. Normal caliber of the appendix. Diffuse colonic diverticulosis without acute diverticulitis. PERITONEUM: No ascites or free air. RETROPERITONEUM: No mass or adenopathy. REPRODUCTIVE: Mildly enlarged prostate gland is stable. MUSCULOSKELETAL: Internal fixation with femoral dayana and retrograde interlocking femoral head screw again seen in the right femur. There is increased subchondral lucency of the right femoral head, with increased collapsed and fragmentation. OTHER: A moderate size right inguinal hernia is again seen containing fat and the appendix. IMPRESSION: 1. Stable 3.2 x 3.1 cm infrarenal abdominal aortic aneurysm status post aorto bi-iliac endoluminal stent graft repair without interval stent migration. However, there is a new small type 2 endoleak arising from the PAOLO. Consider shortening follow-up interval. 2. Increased subchondral lucency and collapse of the right femoral head. 3. 2.5 cm cystic lesion in the pancreatic head has increased in size since 2020, but stable to slightly decreased compared to 2019. 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 Attention on follow-up recommended. 4. Other stable chronic findings as above, including a moderate size right Amyand hernia and large right adrenal myelolipoma. THIS IS AN ELECTRONICALLY VERIFIED FINAL REPORT 10/28/2021 9:36 AM - Electronically signed by Munir Olivera M.D. ML T: Report ID: [id number] Reading Location: [place] [address] Procedure Note Munir Olievra MD - 10/28/2021 EXAM DESCRIPTION: CTA ABDOMEN PELVIS REASON FOR STUDY: Follow-up for abdominal aortic aneurysm status post endoluminal stent graft repair 5 years ago. TECHNIQUE: CTA scan of the abdomen and pelvis performed without and with intravenous and without oral contrast using helical scanning techniquewith dynamic intravenous contrast injection. Precontrast, arterial, and portal venous phase images of the abdomen and pelvis were acquired. Images reviewed with lung, soft tissue and bone windows. Reconstructed coronaland sagittal MPR images reviewed. All images stored on PACS. 3D MIP images rendered on scanning unit and reviewed at time of interpretation.Automated exposure control was used as a dose optimization technique for this examination. CONTRAST TYPE/DOSE: 100 mL Optiray 350 injected via right antecubital fossa, 20 gauge IV COMPARISON: 09/24/2020; 09/11/2019 FINDINGS: VASCULATURE: No dissection, intramural hematoma, rupture, orpenetrating atherosclerotic ulcer. Moderate diffuse atherosclerotic calcificationagain seen in the abdominal aorta and bilateral iliac vessels. CELIAC TRUNK: No flow limiting stenosis, dissection, or aneurysm. 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 SUPERIOR MESENTERIC ARTERY: No flow limiting stenosis, dissection, or aneurysm. RIGHT RENAL ARTERY: No flow limiting stenosis, dissection, or aneurysm. LEFT RENAL ARTERY: No flow limiting stenosis, dissection, or aneurysm. INFERIOR MESENTERIC ARTERY: No flow limiting stenosis, dissection, or aneurysm. Back fills the excluded lumen of the abdominal aorticaneurysm. AORTA: Again seen is an infrarenal abdominal aortic aneurysm status post aorto bi-iliac endoluminal stent graft repair. The proximal landing zonesare again seen below the left renal arteries. The distal landing zones are inthe bilateral external iliac arteries. An overlapping stent also extends intothe right internal iliac artery, with coil embolization of the left internaliliac artery, unchanged. No interval stent graft migration. A new type 2endoleak is seen due to retrograde flow from the PAOLO measuring 10 x 5 millimeter.The aneurysm now measures 3.2 cm AP x 3.1 cm transverse, unchanged from prior study. 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 ILIAC ARTERIES: No flow limiting stenosis, dissection, or aneurysm. LOWER CHEST: No significant pulmonary abnormalities. No effusion. Mild cardiomegaly is stable. Persistent scarring in the right lung base withmild pleural thickening redemonstrated, unchanged. No pleural effusion or consolidation. LIVER: Normal size. No identified cystic or solid masses. GALLBLADDER: Stones again seen. No wall thickening or pericholecystic fluid. BILE DUCTS: No intrahepatic or extrahepatic ductal dilatation. SPLEEN: Normal size. No focal lesions. PANCREAS: Multiple punctate parenchymal calcifications again seencompatible with prior pancreatitis. A 2.5 cm cystic lesion is again seen in the pancreatic head, previously 2 cm in 2020 and 2.6 cm in 2019. No adjacent inflammation or peripancreatic fluid collections. Pancreatic duct notdilated. ADRENALS: A 7.2 x 5.1 cm right angiomyolipoma is unchanged. Leftadrenal gland is normal. KIDNEYS/URINARY TRACT: No identified significant cystic or solid masses.No stones. No hydronephrosis or hydroureter. Symmetric enhancement. A 4 cmcyst in the superior pole of the left kidney is unchanged. Other additionalsmall cysts also seen in both kidneys. Normal bladder. GI: No dilated bowel loops. No obvious wall thickening. Normal caliberof the appendix. Diffuse colonic diverticulosis without acutediverticulitis. PERITONEUM: No ascites or free air. RETROPERITONEUM: No mass or adenopathy. REPRODUCTIVE: Mildly enlarged prostate gland is stable. MUSCULOSKELETAL: Internal fixation with femoral dayana and retrograde interlocking femoral head screw again seen in the right femur. There is increased subchondral lucency of the right femoral head, with increased collapsed and fragmentation. OTHER: A moderate size right inguinal hernia is again seen containingfat and the appendix. IMPRESSION: 1. Stable 3.2 x 3.1 cm infrarenal abdominal aortic aneurysm status postaorto bi-iliac endoluminal stent graft repair without interval stent migration. However, there is a new small type 2 endoleak arising from the PAOLO.Consider shortening follow-up interval. 2. Increased subchondral lucency and collapse of the right femoralhead. 3. 2.5 cm cystic lesion in the pancreatic head has increased in sizesince 2020, but stable to slightly decreased compared to 2019. 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 Attention on follow-up recommended. 4. Other stable chronic findings as above, including a moderate sizeright Amyand hernia and large right adrenal myelolipoma. THIS IS AN ELECTRONICALLY VERIFIED FINAL REPORT 10/28/2021 9:36 AM - Electronically signed by Munir Olivera M.D. ML T: Report ID: [id number] Reading Location: [id number] Nestor Oden MD IMG CT PROCEDURES Final Re sult from Last 3 Months or Most Recently Relevant to Health Maintenance Insurance MEDICARE [facility] MEDICARE [facility] MEDICARE [facility] MEDICARE SUPPLEMENT Advance Directives For more information, please contact: [phone] * Full Code (Latest Code Status on File) Date Activated Date Inactivated Comments 02/10/2019 8:45 PM 02/20/2019 9:19 PM Care Teams Bowstring Maker Relationship Specialty Start Date End Date Olvin Roberts MD [id number] [place] [id number] PCP - General Family Practice 07/05/23 Nestor Oden MD [id number] [place] [address] Surgeon Vascular Surgery 10/28/22
--- OUTSIDE RECORDS SUMMARY | 2024-10-28 08:25 | XMS_ITS | Continuity of Care Document ---
Author Name Auto Generated, Auto Generated Organization [employer] Support Name Relationship Address Phone Wesley Keene Financial Responsible Republican [address] [place] [address] Wesley Keene Self [address] [place] [address] Summary Purpose Consult/Referral Allergies, Adverse Reactions, Alerts Type Description/Agent Code Date Allergy Active Date Allergy Inactivated Date of Last Reaction Adverse Reactions Severity Status Comments Source of Information [employer]i f[employer] Group No Known Allergies Active Patient History Medications Medications Prescription Date Begun Date Discontinued Status Associated Diagnoses Ordering Provider multivitamin with minerals tablet 1 tablet 1 Time Daily 12/21/19 17 Active --DIAGNOSIS EXEMPT MD Toy Villeda dilTIAZem 30 mg tablet 30mg Every 6 Hours 12/16/19 17 Active --DIAGNOSIS EXEMPT MD Toy Villeda Colace 100 mg capsule 100mg 2 Times Daily 12/16/19 17 Active --DIAGNOSIS EXEMPT MD Toy Villeda guaiFENesin ER 600 mg tablet, extended release 12 hr 600mg 2 Times Daily 12/16/19 17 Active --DIAGNOSIS EXEMPT MD Toy Villeda heparin (porcine) 5,000 unit/mL injection syringe 5,000 unit/mL Every 12 Hours 12/16/19 17 Active --DIAGNOSIS EXEMPT MD Toy Villeda HYDROcodone 5 mg-acetaminophen 325 mg tablet 1 tablet PRN Every 4 Hours 12/16/19 17 Active --DIAGNOSIS EXEMPT MD Toy Villeda ipratropium-albu terol 0.5 mg-3 mg(2.5 mg base)/3 mL nebulization soln 3mL PRN Every 1 Hour 12/16/19 17 Active --DIAGNOSIS EXEMPT MD Toy Villeda tamsulosin 0.4 mg capsule 0.4mg 1 Time Daily 12/16/19 17 Active --DIAGNOSIS EXEMPT MD Toy Villeda carvedilol 6.25 mg tablet 6.25mg 2 Times Daily 12/16/19 17 Active --DIAGNOSIS EXEMPT MD Toy Villeda Aspirin Low Dose 81 mg tablet,delayed release 81mg 1 Time Daily 12/16/19 17 Active --DIAGNOSIS EXEMPT MD Toy Villeda fluticasone 50 mcg/actuation nasal spray,suspension 2 sprays PRN 1 Time Daily 12/16/19 17 Active --DIAGNOSIS EXEMPT MD Toy Villeda pravastatin 40 mg tablet 40mg 1 Time Daily 12/16/19 17 Active --DIAGNOSIS EXEMPT MD Toy Villeda Conditions/Problems Problem/Diagnosis Awareness of Diagnosis Code (ICD-10) Onset Date (Start Date) Resolution Date (End Date) Status Source Comments ACUTE RESPIRATORY FAILURE WITH HYPOXIA J96.01 12/16/19 17 Active MD Toy Villeda OTHER NONSPECIFIC ABNORMAL FINDING OF LUNG FIELD R91.8 12/16/19 17 Active MD Toy Villeda PURE HYPERCHOLESTEROLEMIA , UNSPECIFIED E78.00 12/16/19 17 Active MD Toy Villeda ATELECTASIS J98.11 12/16/19 17 Active MD Toy Villeda CARE HOME (CURRENT) USE OF ASPIRIN Z79.82 12/16/19 17 Active MD Toy Villeda Procedures No Known Procedures
--- OUTSIDE RECORDS SUMMARY | 2024-10-28 08:25 | XMS_ITS | Encounter Summary ---
Author Organization [facility] Care Team Providers Care Studio Data Analyst Name Role Phone Chace Stafford MD Primary Care Provider [phone] Phillip Bañuelos NP Primary Care Provider [phone] Jimmy Means DO Primary Care Provider [phone] Nestor Oden MD Unavailable [phone] Olvin Roberts MD Primary Care Provider [phone] Encounter Details Date Type Department Care Team (Latest Contact Info) Description 10/03/2016 Orders Only MMG CLINCONV Provider, MD Aydin [address] [place] [address] Social History Tobacco Use Types Packs/Day Years Used Date Smoking Tobacco: Never Assessed Sex and Gender Information Value Date Recorded Sex Assigned at Not on file Legal Sex Male 11:00 AM RN FLIGHT Gender Identity Not on file Sexual Orientation Not on file documented as of this encounter Plan of Treatment Not on file documented as of this encounter Procedures Procedure Name Priority Date/Time Associated Diagnosis Comments PROCEDURE - RESULT 10/03/2016 12 :00 AM RN FLIGHT PROCEDURE - RESULT 09/29/2016 12 :00 AM RN FLIGHT documented in this encounter Results * PROCEDURE - RESULT (10/03/2016 12:00 AM RN FLIGHT) Narrative 10/03/2016 12:00 AM RN FLIGHT Ordered by an unspecified provider. Historical Provider Final Res ult * PROCEDURE - RESULT (09/29/2016 12:00 AM RN FLIGHT) Narrative 09/29/2016 12:00 AM RN FLIGHT Ordered by an unspecified provider. Historical Provider Final Res ult documented in this encounter Visit Diagnoses Not on filedocumented in this encounter Care Teams Studio Data Analyst Relationship Specialty Start Date End Date Chace Stafford MD [address] [place] [address] PCP - General Internal Medicine 08/17/18 01/06/19 Phillip Bañuelos NP [address] [place] [address] PCP - General Nurse Practitioner 01/07/19 02/09/19 Jimmy Means DO [address] [place] [address] [address] [place] [address] PCP - General 02/10/19 07/04/23 Olvin Roberts MD [address] [facility] [address] [facility] [place] [address] PCP - General Family Practice 07/05/23 Nestor Oden MD [address] [facility] [address] [facility] [place] [address] Surgeon Vascular Surgery 10/28/22 documented as of this encounter
--- OUTSIDE RECORDS SUMMARY | 2024-10-28 08:25 | XMS_ITS | Referral Summary ---
Author Organization [facility] Address [address] [place] [address] Care Team Providers Care Development Associate Name Role Phone Nestor Oden MD Unavailable [phone] Olvin Roberts MD Primary Care Provider [phone] Encounters Date Type Department Care Team Description 09/11/2024 10:30 AM SURGICAL INSTRUMENT TECHNICIAN Office Visit [facility] Cardiology [address] [facility] [address] [place] [id number] Peyman Gaona MD Chronic right-sided heart failure (HCC) (Primary Dx); Atrial fibrillation with controlled ventricular response (HCC); Chronic anticoagulation; Chronic respiratory failure with hypoxia, on home O2 therapy (HCC); Status post endovascular aneurysm repair (EVAR) from Last 3 Months Medications pravastatin (PRAVACHOL) 40 mg tablet Take [...] 10/11/2018 Assessment & Plan (10/22/2020 8:15 PM SURGICAL INSTRUMENT TECHNICIAN): Impression: Chronic atrial fibrillation on daily anticoagulation. Plan: Continue daily anticoagulation and metoprolol for rate control as directed by his primary care physician and analytical lab technician. Assessment & Plan (02/11/2019 12:01 AM CDT): [...] Yeager Primary Care Physician: Chace Stafford MD, Occupational Therapy Asst: Dr. Nicky Hernandez Cancer Staging Stage IIA [...] time. Will call primary care physician or sap sd analyst if breathing worsens or does not continue [...] 5. Annually after year 5. Dr. Em Occupational Therapy Asst: As needed or directed. Dr. Hernandez Chest [...] cholesterol management blood sugar control blood [facility] DEXA every 2 years calcium [...] you. [facility] Debbie Cottrell and Michael [address] [place] [address] Phillip [place] [facility] [address] [place] [address] [facility] Therapy Services [place] [address] [place] [address] [facility] Services - [facility] [address], [address] [place] [address] [facility] Therapy [facility] [address] [facility] [place] [address] [facility] Classes Please call [phone] to register. Each session is limited to 10 people. Phillip [facility] Conference Room First Floor [address] [place] [address] [facility] MichaelSimba [facility]. Conference Room Third Floor [address] [place] [address] [facility] Integrative Medicine & Healing Therapies [facility] Integrative Medicine and Therapy Services Michael/Simba [address] [facility], [address]. [address] Services: Acupuncture, Auriculotherapy, Chiropractic, Guided Imagery, Healing Touch, Massage Therapy, Nutritional Counseling, Physical Therapy (manual and traditional) and Reflexology [facility] [address], [address] [place]. [address] Services: Acupuncture, Auriculotherapy, Chiropractic, and Massage Therapy [facility] Integrative Medicine and Therapy Services [facility] [address] [facility], [address] [place] [address] Services: Acupuncture, Auriculotherapy, Guided Imagery, Healing Touch, Massage Therapy, Lymphedema, Physical Therapy and Reflexology [facility] [address] [facility], [address] [place]. [address] Services: Acupuncture and Chiropractic [facility] [address] [place] [address]. [address] [place] [address] [employer] [email or web address] Help line 24 hours, 7 days/week, phone [phone] [place] [address] Hours Monday - Monday 8:30 am- 5 pm Services include: ? information and referrals, educational materials ? transportation assistance ? nutritional supplements ? educational and support programs [employer] Guidelines on Nutrition and Physical [...] hot dogs), desserts, high-fat dairy products and Romanian fries. Most of the studies about cancer [...] (11/15/2023 12:56 PM CDT): Status post EVAR 2017. Graft remains patent. 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 Surveillance CTA revealed widely patent endo repair with no evidence of endoleak or stent migration with a stable resighini aneurysm sac. Plan: Recommend ongoing risk factor modifications and follow-up in 1 year for re-evaluation and repeat CTA abdomen and pelvis surveillance to evaluate his endovascular AAA repair. Benign hypertension 09/30/2016 Assessment & Plan (10/22/2020 8:14 PM SURGICAL INSTRUMENT TECHNICIAN): .Impression: Stable chronic hypertension. Plan: Medications reviewed [...] and middle lobectomy of lung 9 02/16/2019 Immunizations Immunization Administration Dates Next Due Influenza, Quadrivalent, Hig h Dose, Preservative Free, Intrr 06/26/2020 Influenza, Trivalent, High D ose, Split, Preservative Free, Intramuscular 06/23/2018,06/23/2018,05/28/2017 Tdap 02/09/2019 Social History Tobacco Use Types Packs/Day Years Used Date Smoking Tobacco: Former Cigarettes Q uit: 2017 Smokeless Tobacco: Never Tobacco Cessation:Counseling Given: Not Answered Alcohol Use Standard Drinks/Week Comments Yes 0 (1 standard drink = 0.6 oz pur e alcohol) 2-3 per month Sex and Gender Information Value Date Recorded Sex Assigned at Not on file Legal Sex Male 11:00 AM SURGICAL INSTRUMENT TECHNICIAN Gender Identity Not on file Sexual Orientation Not on file Last Filed Vital Signs Vital Sign Reading Time Taken Comments Blood Pressure 88/60 09/11/2024 10:41 AM SURGICAL INSTRUMENT TECHNICIAN Pulse 54 09/11/2024 10:41 AM SURGICAL INSTRUMENT TECHNICIAN Temperature 36.3 C (97.4 F) 09/24/2019 1:26 PM SURGICAL INSTRUMENT TECHNICIAN Respiratory Rate 15 06/24/2020 10:44 AM SURGICAL INSTRUMENT TECHNICIAN Oxygen Saturation 84% 09/11/2024 10:41 AM SURGICAL INSTRUMENT TECHNICIAN Inhaled Oxygen Concentration - - Weight 88.9 kg (196 lb) 09/11/2024 10:41 AM SURGICAL INSTRUMENT TECHNICIAN Height 177.8 cm (5' 10 ) 09/11/2024 10:41 AM SURGICAL INSTRUMENT TECHNICIAN Body Mass Index 28.12 09/11/2024 10:41 AM SURGICAL INSTRUMENT TECHNICIAN Plan of Treatment Not on file Medical Devices Implanted Type Area Blower Insulator Device Identifier Shelf Expiration Date Model / Serial / Lot [employer]/Ort [id number] Intertan 10mm 20cm Trochanter 130d Short Nail Intramedullary - [id number] Implanted:Qty: 1 on 02/11/2019 by Humera Damon MD at [facility] Right: Femur [employer]o [id number] 10/30/2028 [id number] / / [id number] [employer]/Ort ho [id number] Intertan 115mm 110mm Lag Compression Interlock Integrated - [id number] Implanted:Qty: 1 on 02/11/2019 by Humera Damon MD at [facility] Right: Femur [employer] [id number] 09/24/2028 [id number] / / [id number] [employer]/Ort ho [id number] 5mm 37.5mm Low Profile Internal Hex Femur Screw Bone Trigen - [id number] Implanted:Qty: 1 on 02/11/2019 by Humera Damon MD at [facility] Right: Femur [employer] [id number] 12/02/2028 [id number] / / [id number] Procedures Procedure Name Priority Date/Time Associated Diagnosis Comments CTA ABDOMEN PELVIS W WO CONTRAST Schedule Routine, Read Routine (OP Routine) 10/28/2021 8:40 AM SURGICAL INSTRUMENT TECHNICIAN Abdominal aortic aneurysm (AAA) without rupture from Last 3 Months or Most Recently Relevant to Health Maintenance Results * CTA Abdomen Pelvis W WO Contrast (10/28/2021 8:40 AM SURGICAL INSTRUMENT TECHNICIAN) Anatomical Region Laterality Modality Body N/A Computed Tomogra phy 10/28/2021 9:07 AM SURGICAL INSTRUMENT TECHNICIAN Narrative 10/28/2021 9:36 AM SURGICAL INSTRUMENT TECHNICIAN EXAM DESCRIPTION: CTA ABDOMEN PELVIS REASON FOR [...] Munir Olivera M.D. ML T: Report ID: [id number] Reading Location: [id number] Procedure Note Munir Olivera MD - 10/28/2021 EXAM DESCRIPTION: CTA ABDOMEN [...] - Electronically signed by Munir Olivera M.D. T: Report ID: [id number] Reading Location: [place] [address] Nestor Oden MD IM CT PROCEDURES Final Re sult from Last 3 Months or Most Recently Relevant to Health Maintenance Insurance MEDICARE [facility] MEDICARE [facility] MEDICARE [facility] MEDICARE SUPPLEMENT Advance Directives For more information, please contact: [phone] * Full Code (Latest Code Status on File) Date Activated Date Inactivated Comments 02/10/2019 8:45 PM 02/20/2019 9:19 PM Care Teams Development Associate Relationship Specialty Start Date End Date Olvin Roberts MD [facility] [address] [place] [address] PCP - General Family Practice 07/05/23 Nestor Oden MD [facility] [address] [place] [address] Surgeon Vascular Surgery 10/28/22
[2024-10-28 08:33] LABS: Estimated Glomerular Filt Rate > 60
== END 2024-10-28 08:10 | disposition home or self-care (01) ==
LOC: ANHIMG 08:13
PROVIDERS: Visit Provider Internal Medicine Hematology & Oncology
DX: C34.90 Malignant neoplasm of unspecified part of unspecified bronchus or lung (principal); M16.0 Bilateral primary osteoarthritis of hip; I71.43 Infrarenal abdominal aortic aneurysm, without rupture
CPT/HCPCS: 71260; 74177; Q9967

== ENCOUNTER 2024-10-31 13:11 | Outpatient (CLI) | payer MEDICARE, SELFPAY ==
[2024-10-31 14:07] LABS: Alanine Aminotransferase 15 U/L (6-50); Albumin Level 3.6 g/dL (3.5-5.1); Alkaline Phosphatase 79 U/L (38-126); Anion Gap 5 mmol/L (4-12); Aspartate Amino Transferase 22 U/L (17-59); Bilirubin,Total 1.1 mg/dL (0.2-1.3); Blood Urea Nitrogen 18 mg/dL (9-20); Calcium 8.2 mg/dL (8.4-10.2); Carbon Dioxide 35 mmol/L (22-30); Chloride 97 mmol/L (98-107); Cholesterol 124 mg/dL (0-200); Estimated Glomerular Filt Rate > 60; Glucose 134 mg/dL (65-110); HDL Direct 48 mg/dL; Potassium 4.4 mmol/L (3.4-5.0); Sodium 137 mmol/L (137-145); Triglycerides 82 mg/dL (<150)
[2024-10-31 14:18] LABS: LDL Cholesterol Direct 52 mg/dL
--- OUTSIDE RECORDS SUMMARY | 2024-10-31 14:46 | XMS_ITS | Encounter Summary ---
Author Organization [facility] Facility Care Team Providers Care Forestry Farm Laborer Name Role Phone Chace Stafford MD Primary Care Provider [phone] Phillip Bañuelos NP Primary Care Provider [phone] Jimmy Means DO Primary Care Provider [phone] Nestor Oden MD Unavailable [phone] Olvin Roberts MD Primary Care Provider [phone] Encounter Details Date Type Department Care Team (Latest Contact Info) Description 08/30/2017 Orders Only MMG CLINCONV Provider, MD Aydin [address] [place] [address] Social History Tobacco Use Types Packs/Day Years Used Date Smoking Tobacco: Never Assessed Sex and Gender Information Value Date Recorded Sex Assigned at Not on file Legal Sex Male 11:00 AM LACING STRING CUTTER Gender Identity Not on file Sexual Orientation Not on file documented as of this encounter Plan of Treatment Not on file documented as of this encounter Procedures Procedure Name Priority Date/Time Associated Diagnosis Comments SCAN - LABS 08/30/2017 12:00 AM LACING STRING CUTTER documented in this encounter Results * SCAN - LABS (08/30/2017 12:00 AM LACING STRING CUTTER) Narrative 08/30/2017 12:00 AM LACING STRING CUTTER Ordered by an unspecified provider. us Historical Provider Final Res ult documented in this encounter Visit Diagnoses Not on filedocumented in this encounter Care Teams Forestry Farm Laborer Relationship Specialty Start Date End Date Chace Stafford MD [address] [place] [address] PCP - General Internal Medicine 08/17/18 01/06/19 Phillip Bañuelos NP [address] [facility] [address] [place] [address] PCP - General Nurse Practitioner 01/07/19 02/09/19 Jimmy Means DO [address] [facility] [address] [place] [address] PCP - General 02/10/19 07/04/23 Olvin Roberts MD [address] [facility] [address] [facility] [place] [address] PCP - General Family Practice 07/05/23 Nestor Oden MD [address] [facility] [address] [facility] [place] [address] Surgeon Vascular Surgery 10/28/22 documented as of this encounter
--- OUTSIDE RECORDS SUMMARY | 2024-10-31 14:46 | XMS_ITS | Encounter Summary ---
Author Organization [facility] Facility Care Team Providers Care Radio Control Crane Operator Name Role Phone Chace Stafford MD Primary Care Provider [phone] Phillip Bañuelos NP Primary Care Provider [phone] Jimmy Means DO Primary Care Provider [phone] Nestor Oden MD Unavailable [phone] Olvin Roberts MD Primary Care Provider [phone] Encounter Details Date Type Department Care Team (Latest Contact Info) Description 02/28/2018 Orders Only MMG CLINCONV Provider, MD Aydin [address] [place] [address] Social History Tobacco Use Types Packs/Day Years Used Date Smoking Tobacco: Never Assessed Sex and Gender Information Value Date Recorded Sex Assigned at Not on file Legal Sex Male 11:00 AM UNDERWEAR WELTER Gender Identity Not on file Sexual Orientation [...] on filedocumented in this encounter Care Teams Radio Control Crane Operator Relationship Specialty Start Date End Date Chace Stafford MD [address] [facility] [address] [place] [address] PCP - General Internal Medicine 08/17/18 01/06/19 Phillip Bañuelos NP [address] [facility] [address] [place] [address] PCP - General Nurse Practitioner 01/07/19 02/09/19 Jimmy Means DO [address] [facility] [address] [place] [address] PCP - General 02/10/19 07/04/23 Olvin Roberts MD [address] [facility] [address] [place] [address] PCP - General Family Practice 07/05/23 Nestor Oden MD [address] [facility] [address] [place] [address] Surgeon Vascular Surgery 10/28/22 documented as of this encounter
--- OUTSIDE RECORDS SUMMARY | 2024-10-31 14:46 | XMS_ITS | Encounter Summary ---
Author Organization [facility] Facility Care Team Providers Care Hand Lens Polisher Name Role Phone Chace Stafford MD Primary Care Provider Phillip Bañuelos NP Primary Care Provider [phone] Jimmy Means DO Primary Care Provider [phone] Nestor Oden MD Unavailable [phone] Olvin Roberts MD Primary Care Provider [phone] Encounter Details Date Type Department Care Team (Latest Contact Info) Description 10/03/2016 Orders Only [facility]INCONV Provider, MD Aydin [address] [place] [address] Social History Tobacco Use Types Packs/Day Years Used Date Smoking Tobacco: Never Assessed Sex and Gender Information Value Date Recorded Sex Assigned at Not on file Legal Sex Male 11:00 AM FUR IRONER Gender Identity Not on file Sexual Orientation Not on file documented as of this encounter Plan of Treatment Not on file documented as of this encounter Procedures Procedure Name Priority Date/Time Associated Diagnosis Comments PROCEDURE - RESULT 10/03/2016 12 :00 AM FUR IRONER PROCEDURE - RESULT 09/29/2016 12 :00 AM FUR IRONER documented in this encounter Results * PROCEDURE - RESULT (10/03/2016 12:00 AM FUR IRONER) Narrative 10/03/2016 12:00 AM FUR IRONER Ordered by an unspecified provider. Historical Provider Final Res ult * PROCEDURE - RESULT (09/29/2016 12:00 AM FUR IRONER) Narrative 09/29/2016 12:00 AM FUR IRONER Ordered by an unspecified provider. Historical Provider Final Res ult documented in this encounter Visit Diagnoses Not on filedocumented in this encounter Care Teams Hand Lens Polisher Relationship Specialty Start Date End Date Chace Stafford MD [address] [place] [address] PCP - General Internal Medicine 08/17/18 01/06/19 Phillip Bañuelos NP [address] [place] [address] PCP - General Nurse Practitioner 01/07/19 02/09/19 Jimmy Means DO [address] [place] [address] [address] [place] [address] PCP - General 02/10/19 07/04/23 Olvin Roberts MD [address] [facility] [place] [address] PCP - General Family Practice 07/05/23 Nestor Oden MD [address] [facility] [place] [address] Surgeon Vascular Surgery 10/28/22 documented as of this encounter
--- OUTSIDE RECORDS SUMMARY | 2024-10-31 14:46 | XMS_ITS | Encounter Summary ---
Author Organization [facility] Address [address] [place] [address] Care Team Providers Care Labor Relations Consultant Name Role Phone Olvin Roberts MD Primary Care Provider [phone] Reason for Visit * Reason Comments Medication Refill Encounter Details Date Type Department Care Team (Late Contact Info) Description 10/31/2018 Refill [facility] Oncology and Hematology [facility] [address] [place] [address] Bertin Em MD [address] [place] [address] Social History Tobacco Use Types Packs/Day Years Used Date Smoking Tobacco: Former Cigarettes 1 55 0 09/21/1961 - 09/21/2016 Smokeless Tobacco: Never Alcohol Use Standard Drinks/Week Comments Yes 0 (1 standard drink = 0.6 oz pur e alcohol) Sex and Gender Information Value Date Recorded Sex Assigned at Not on file Legal Sex Male 1:49 PM MANAGER RESOURCE Gender Identity Not on file Sexual Orientation Not on file documented as of this encounter Plan of Treatment Upcoming Encounters Date Type Department Care Team (Late Contact Info) Description 11/06/2024 11:15 AM CDT Office Visit [facility] Oncology and Hematology [facility] [address] [place] [address] Bertin Em MD [address] [place] [address] documented as of this encounter Visit Diagnoses Not on filedocumented in this encounter Care Teams Labor Relations Consultant Relationship Specialty Start Date End Date Olvin Roberts MD [address] [place] [address] PCP - General Family Practice 04/06/23 documented as of this encounter
--- OUTSIDE RECORDS SUMMARY | 2024-10-31 14:46 | XMS_ITS ---
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 Mailed survivorship asco answers, and care plan with included breathing exercises. Lung Cancer Survivorship Care Plan Provided by [facility] on 12/15/17 General Information Patient Name: Wesley Keene Patient : 1945 Care Team Medical Oncologist: Dr. Bertin Em Thoracic Surgeon: Dr. Manish Yeager Primary Care Physician: Chace Stafford MD, Construction Foreman: Dr. Nicky Hernandez Cancer Staging Stage IIA [...] time. Will call primary care physician or ems instructor if breathing worsens or does not continue [...] 5. Annually after year 5. Dr. Em Construction Foreman: As needed or directed. Dr. Hernandez Chest [...] cholesterol management blood sugar control blood pressure [facility] DEXA every 2 years calcium with vitamin D weight bearing exercise Call your doctor if you have any of these signs and symptoms: cough, dyspnea on exertion and shortness of breath Additional Resources: Patients may have many varied questions and concerns after their cancer treatment ends. A list of local resources is provided below to assist you. [facility] Cancer [facility] Serves [facility]bbie Cottrell and [address] [place] [address] Phillip Norman [facility] [address] [place] [address] [facility] [place] [address] [place] [address] [facility] [address] [facility] [facility], [address] [place] [address] [facility] - [place] [address] [facility] [place] [address] [facility] Survivorship Training Classes Please call [phone] to register. Each session is limited to 10 people. [facility] Conference Room First Floor [address] [place] [address] [facility]. Conference Room Third Floor [address] [place] [address] [facility] Integrative Medicine & Healing Therapies [facility] Integrative Medicine and Therapy Services Michael/[place]ba [address] [facility], [address] [place]. [address] Services: Acupuncture, Auriculotherapy, Chiropractic, Guided Imagery, Healing Touch, Massage Therapy, Nutritional Counseling, Physical Therapy (manual and traditional) and Reflexology [facility] [address] [place]. [address] Services: Acupuncture, Auriculotherapy, Chiropractic, and Massage Therapy [facility] Integrative Medicine and Therapy [facility] [address] [facility], [address] [place] [address] Services: Acupuncture, Auriculotherapy, Guided Imagery, Healing Touch, Massage Therapy, Lymphedema, Physical Therapy and Reflexology [facility] Medicine - [place] [address] [facility], [address] [place]. [address] Services: Acupuncture and Chiropractic [facility] [address] [place] [address] [employer] [email or web address] Help line 24 hours, 7 days/week, phone [phone] [place] [address] Hours Monday - Monday 8:30 am- 5 pm Services include: information and referrals, educational materials transportation assistance nutritional supplements educational and support programs [employer] Guidelines on Nutrition and Physical [...] hot dogs), desserts, high-fat dairy products and Mohawk fries. Most of the studies about cancer [...]
--- OUTSIDE RECORDS SUMMARY | 2024-10-31 14:46 | XMS_ITS | Encounter Summary ---
Author Organization [facility] Address [address] [place] [address] Care Team Providers Care Vocational Horticulture Instructor Name Role Phone Olvin Roberts MD Primary Care Provider [phone] Encounter Details Date Type Department Care Team (Late Contact Info) Description 10/28/2024 Orders Only [facility] Oncology and Hematology [address] [place] [address] Bertin Em MD [address] [place] [address] Social History Tobacco Use Types Packs/Day Years Used Date Smoking Tobacco: Former Cigarettes 1 55 0 09/21/1961 - 09/21/2016 Smokeless Tobacco: Never Alcohol Use Standard Drinks/Week Comments Yes 0 (1 standard drink = 0.6 oz pur e alcohol) Sex and Gender Information Value Date Recorded Sex Assigned at Not on file Legal Sex Male 1:49 PM ICT CUSTOMER SUPPORT OFFICER Gender Identity Not on file Sexual Orientation Not on file documented as of this encounter Plan of Treatment Upcoming Encounters Date Type Department Care Team (Late st Contact Info) Description 11/06/2024 11:15 AM CDT Office Visit [facility] Oncology and Hematology - [place] [address] [place] [address] Bertin Em MD [address] [place] [address] documented as of this encounter Procedures Procedure Name Priority Date/Time Associated Diagnosis Comments CT CHEST ABDOMEN PELVIS W CONT Routine 10/28/2024 1:01 PM CDT documented in this encounter Results * CT CHEST ABDOMEN PELVIS W CONT (10/28/2024 1:01 PM CDT) Anatomical Region Laterality Modality Chest Other Bertin Em MD CT ORDERABLES Final Result documented in this encounter Visit Diagnoses Not on filedocumented in this encounter Care Teams Vocational Horticulture Instructor Relationship Specialty Start Date End Date Olvin Roberts MD [address] [place] [address] PCP - General Family Practice 04/06/23 documented as of this encounter
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
--- OUTSIDE RECORDS SUMMARY | 2024-10-31 14:46 | XMS_ITS | Referral Summary ---
Author Organization [facility] Address [address] [place] [address] Care Team Providers Care Elastic Cutter Name Role Phone Nestor Oden MD Unavailable [phone] Olvin Roberts MD Primary Care Provider [phone] Encounters Date Type Department Care Team Description 10/29/[address] [facility] Medical [facility] Cardiology [address] [facility] [address] [place] [address] Peyman Gaona MD 09/11/2024 10:30 AM PACKAGING CLERK Office Visit [facility] Cardiology [address] [facility] [address] [place] [address] Peyman Gaona MD Chronic right-sided heart failure [...] hours as needed (TAKE FIRST) 1 capsule 02/21/20 19 Active tamsulosin (FLOMAX) 0.4 mg extended release capsule Take 1 capsule (0.4 mg total) by mouth daily with dinner 1 capsule 02/21/20 19 Active POTASSIUM CHLORIDE ER 20 mEq CR tabletIndicatio ns:Chronic right-sided heart failure (HCC) Take 1 tablet (20 mEq total) by mouth 2 (two) times a day 60 tablet 11 04/11/20 19 Active alendronate (FOSAMAX) 70 mg tablet 08/18/20 19 Active PROAIR HFA 90 mcg/actuation inhaler 5 07/22/20 19 Active fluticasone propion-salmete roL (AIRDUO RESPICLICK) 232-14 mcg/actuation inhaler 09/13/19 21 Active LORazepam (ATIVAN) 0.5 mg tablet TK 1 T PO 1 HOUR PRIOR TO CATSCAN 06/29/20 20 Active ALPRAZolam (XANAX) 0.5 mg tablet Take 1 tab 1 hour before scan. Take 2nd tab upon arrival for scan. 2 tablet 10/18/19 22 Active Additional Information Patient not taking.Reported on 09/11/2024 ipratropium-alb uteroL (DUO-NEB) 0.5-2.5 mg/3 mL nebulizer solution 09/01/19 22 Active lidocaine (XYLOCAINE) 10 mg/mL (1 %) injection lidocaine (PF) 10 mg/mL (1 %) injection solution In office injection administered by the provider Active triamcinolone (Kenalog) 10 mg/mL injection Kenalog 10 mg/mL suspension for injection In office injection administered by the provider Active Breztri Aerosphere 160-9-4.8 mcg/actuation HFA aerosol inhaler 10/16/19 23 Active furosemide (LASIX) 40 mg tabletIndicatio ns:Chronic right-sided heart failure (HCC) TAKE 1 TABLET(40 MG) BY MOUTH DAILY 90 tablet 1 08/20/20 24 Active spironolactone (ALDACTONE) 25 mg tablet TAKE 1 TABLET(25 MG) BY MOUTH DAILY 90 tablet 09/02/19 25 Active metoprolol tartrate (LOPRESSOR) 25 mg immediate release tabletIndicatio ns:Chronic respiratory failure with hypoxia, on home O2 therapy (HCC) Take 0.5 tablets (12.5 mg total) by mouth 2 (two) times a day 60 tablet 11 09/11/19 25 Active apixaban (Eliquis) 5 mg tablet Take 1 tablet (5 mg total) by mouth 2 (two) times a day 60 tablet 11 10/30/19 25 Active Eliquis 5 mg tablet TAKE 1 TABLET(5 MG) BY MOUTH TWICE DAILY 60 tablet 11 06/26/20 24 025 Discontin ued(Reord er) Active Problems Problem Noted Date Diagnosed Date [...] 10/11/2018 Assessment & Plan (10/22/2020 8:15 PM PACKAGING CLERK): Impression: Chronic atrial fibrillation on daily anticoagulation. Plan: Continue daily anticoagulation and metoprolol for rate control as directed by his primary care physician and water softener service supervisor. Assessment & Plan (02/11/2019 12:01 AM CDT): [...] Cancer Survivorship Care Plan Provided by [facility] on 12/15/17 General Information Patient Name: Wesley Keene Patient : 1945 Care Team Medical Oncologist: Dr. Bertin Em Thoracic Surgeon: Dr. Manish Yeager Primary Care Physician: Chace Stafford MD, Belt Turner: Dr. Nicky Hernandez Cancer Staging Stage IIA [...] time. Will call primary care physician or database marketing specialist if breathing worsens or does not continue [...] 5. Annually after year 5. Dr. Em Belt Turner: As needed or directed. Dr. Hernandez Chest [...] Cancer Rehabilitation Serves Debbie Cottrell and [address] [place] [address] [address] [place] [address] [place] [address] [facility] - [place] [address] [place] [address] [facility] [address] [facility], [address] [place] [address] [facility] - [place] [address] [facility], [address] [place] [address] [facility] Survivorship Training Classes Please call [phone] to register. Each session is limited to 10 people. [facility] Conference Room First Floor [address] [place] [address] [facility]. Conference Room Third Floor [address] [place] [address] [facility] Integrative Medicine & Healing Therapies [facility] Integrative Medicine and Therapy [facility] [address] [facility], [address] [place]. [address] Services: Acupuncture, Auriculotherapy, Chiropractic, Guided Imagery, Healing Touch, Massage Therapy, Nutritional Counseling, Physical Therapy (manual and traditional) and Reflexology [facility] [address], [address] [place]. [address] Services: Acupuncture, Auriculotherapy, Chiropractic, and Massage Therapy [facility] Integrative Medicine and Therapy [facility] Cancer [place] [address] [facility], [address] [place] [address] Services: Acupuncture, Auriculotherapy, Guided Imagery, Healing Touch, Massage Therapy, Lymphedema, Physical Therapy and Reflexology [facility] [address] [facility], [address] [place]. [address] Services: Acupuncture and Chiropractic [facility] [address] [place] [address]. [address] [place] [address] [employer] [email or web address] Help line 24 hours, 7 days/week, phone [phone] [place] [address] Hours Aguilar - Monday 8:30 am- 5 pm Services include: ? information and referrals, educational materials ? transportation assistance ? nutritional supplements ? educational and support programs [employer] Guidelines on Nutrition and Physical [...] hot dogs), desserts, high-fat dairy products and Burkinan fries. 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 Surveillance CTA revealed widely patent endo repair with no evidence of endoleak or stent migration with a stable tuluksak aneurysm sac. Plan: Recommend ongoing risk factor modifications and follow-up in 1 year for re-evaluation and repeat CTA abdomen and pelvis surveillance to evaluate his endovascular AAA repair. Benign hypertension 09/30/2016 Assessment & Plan (10/22/2020 8:14 PM PACKAGING CLERK): .Impression: Stable chronic hypertension. Plan: Medications reviewed [...] on file Legal Sex Male 11:00 AM PACKAGING CLERK Gender Identity Not on file Sexual Orientation Not on file Last Filed Vital Signs Vital Sign Reading Time Taken Comments Blood Pressure 88/60 09/11/2024 10:41 AM PACKAGING CLERK Pulse 54 09/11/2024 10:41 AM PACKAGING CLERK Temperature 36.3 C (97.4 F) 09/24/2019 1:26 PM PACKAGING CLERK Respiratory Rate 15 06/24/2020 10:44 AM PACKAGING CLERK Oxygen Saturation 84% 09/11/2024 10:41 AM PACKAGING CLERK Inhaled Oxygen Concentration - - Weight 88.9 kg (196 lb) 09/11/2024 10:41 AM PACKAGING CLERK Height 177.8 cm (5' 10 ) 09/11/2024 10:41 AM PACKAGING CLERK Body Mass Index 28.12 09/11/2024 10:41 AM PACKAGING CLERK Plan of Treatment Not on file Medical Devices Implanted Type Area Reel Film Inspector Device Identifier Shelf Expiration Date Model / Serial / Lot [employer]/Ort ho [id number] Intertan 10mm 20cm Trochanter 130d Short Nail Intramedullary - [id number] Implanted:Qty: 1 on 02/11/2019 by Humera Damon MD at [facility] Right: Femur [employer]o [id number] 10/30/2028 [id number] / / [id number] [employer]/Ort ho [id number] Intertan 115mm 110mm Lag Compression Interlock Integrated - [id number] Implanted:Qty: 1 on 02/11/2019 by Humera Damon MD at [facility] Right: Femur [employer] [id number] 09/24/2028 [id number] / / [id number] [employer]/Ort ho [id number] 5mm 37.5mm Low Profile Internal Hex Femur Screw Bone Trigen - [id number] Implanted:Qty: 1 on 02/11/2019 by Humera Damon MD at [facility] Right: Femur [employer] [id number] 12/02/2028 [id number] / / [id number] Procedures Procedure Name Priority Date/Time Associated Diagnosis Comments CTA ABDOMEN PELVIS W WO CONTRAST Schedule Routine, Read Routine (OP Routine) 10/28/2021 8:40 AM PACKAGING CLERK Abdominal aortic aneurysm (AAA) without rupture from Last 3 Months or Most Recently Relevant to Health Maintenance Results * CTA Abdomen Pelvis W WO Contrast (10/28/2021 8:40 AM PACKAGING CLERK) Anatomical Region Laterality Modality Body N/A Computed Tomogra phy 10/28/2021 9:07 AM PACKAGING CLERK Narrative 10/28/2021 9:36 AM PACKAGING CLERK EXAM DESCRIPTION: CTA ABDOMEN PELVIS REASON FOR [...] Munir Olivera M.D. ML T: Report ID: [id number] [place] Location: [id number] Procedure Note Munir Olivera MD - 10/28/2021 [...] Munir Olivera M.D. ML T: Report ID: [id number] [place] Location: [id number] Netsor Oden MD IMG CT PROCEDURES Final Re sult from Last 3 Months or Most Recently Relevant to Health Maintenance Insurance MEDICARE [facility] MEDICARE [facility] MEDICARE BLUE [employer]OSS MEDICARE SUPPLEMENT Advance Directives For more information, please contact: [phone] * Full Code (Latest Code Status on File) Date Activated Date Inactivated Comments 02/10/2019 8:45 PM 02/20/2019 9:19 PM Care Teams Elastic Cutter Relationship Specialty Start Date End Date Olvin Roberts MD [address] [facility] [address] [place] [address] PCP - General Family Practice 07/05/23 Nestor Oden MD [address] [facility] [address] [place] [address] Surgeon Vascular Surgery 10/28/22
--- OUTSIDE RECORDS SUMMARY | 2024-10-31 14:46 | XMS_ITS | Encounter Summary ---
Author Organization [facility]/Health system Facility Care Team Providers Care Clinical Trials Specialist Name Role Phone Chace Stafford MD Primary Care Provider [phone] Phillip Bañuelos NP Primary Care Provider [phone] Jimmy Means DO Primary Care Provider [phone] Nestor Oden MD Unavailable [phone] Olvin Roberts MD Primary Care Provider [phone] Encounter Details Date Type Department Care Team (Latest Contact Info) Description 10/18/2016 Orders Only [facility] CLINCONV ProviderAydin MD [address] [place] [address] Social History Tobacco Use Types Packs/Day Years Used Date Smoking Tobacco: Never Assessed Sex and Gender Information Value Date Recorded Sex Assigned at Not on file Legal Sex Male 11:00 AM BANQUET SERVER Gender Identity Not on file Sexual Orientation Not on file documented as of this encounter Plan of Treatment Not on file documented as of this encounter Procedures Procedure Name Priority Date/Time Associated Diagnosis Comments PROCEDURE - RESULT 10/05/2016 12 :00 AM BANQUET SERVER documented in this encounter Results * PROCEDURE - RESULT (10/05/2016 12:00 AM BANQUET SERVER) Narrative 10/05/2016 12:00 AM BANQUET SERVER Ordered by an unspecified provider. us Historical Provider Final Res ult documented in this encounter Visit Diagnoses Not on filedocumented in this encounter Care Teams Clinical Trials Specialist Relationship Specialty Start Date End Date Chace Stafford MD [address] [place] [address] PCP - General Internal Medicine 08/17/18 01/06/19 Phillip Bañuelos NP [address] [facility] [address] [place] [address] PCP - General Nurse Practitioner 01/07/19 02/09/19 Jimmy Means DO [address] [facility] [address] [place] [address] PCP - General 02/10/19 07/04/23 Olvin Roberts MD [address] [facility] [address] [place] [address] PCP - General Family Practice 07/05/23 Nestor Oden MD [address] [facility] [address] [place] [address] Surgeon Vascular Surgery 10/28/22 documented as of this encounter
--- OUTSIDE RECORDS SUMMARY | 2024-10-31 14:46 | XMS_ITS ---
Author Organization [facility] Address [address] [place] [address] Care Team Providers Care Design Release Engineer Name Role Phone Nestor Oden MD Unavailable [phone] Olvin Roberts MD Primary Care Provider [phone] Active Problems Problem Noted Date Diagnosed Date [...] 10/11/2018 Assessment & Plan (10/22/2020 8:15 PM CARDIAC/VASCULAR SONOGRAPHER): Impression: Chronic atrial fibrillation on daily anticoagulation. Plan: Continue daily anticoagulation and metoprolol for rate control as directed by his primary care physician and escalator mechanic. Assessment & Plan (02/11/2019 12:01 AM CDT): [...] Yeager Primary Care Physician: Chace Stafford MD, Surgical Coder: Dr. Nicky Hernandez Cancer Staging Stage IIA [...] time. Will call primary care physician or manager php if breathing worsens or does not continue [...] 5. Annually after year 5. Dr. Em Surgical Coder: As needed or directed. Dr. Hernandez Chest [...] cholesterol management blood sugar control blood pressure controlSierra Tucsone health DEXA every 2 years calcium with [...] STAR Program Cancer Rehabilitation Serves Debbie Morales [address] [facility], [address] [place] [address] [place] [facility] [address] [facility] [place] [address] [facility] [address] [place] [address] [facility] [address] [facility], [address] [place] [address] [facility] Therapy [facility] [address] [facility], [address] [place] [address] [place] Survivorship Training Classes Please call [phone] to register. Each session is limited to 10 people. Phillip [facility] Conference Room First Floor [address] [place] [address] De[address] Noland [address]ld[address] Conference Room Third Floor [id number] [place] [address] [facility] Healing Therapies [facility] Integrative Medicine and Therapy Services [place] [address] [facility], [address] [place]. [address] Services: Acupuncture, Auriculotherapy, Chiropractic, Guided Imagery, Healing Touch, Massage Therapy, Nutritional Counseling, Physical Therapy (manual and traditional) and Reflexology [facility] [address], [address] [place]. [address] Services: Acupuncture, Auriculotherapy, Chiropractic, and Massage Therapy [facility] Integrative Medicine and Therapy [facility] Cancer [place] [address] [facility], [address] [place] [address] Services: Acupuncture, Auriculotherapy, Guided Imagery, Healing Touch, Massage Therapy, Lymphedema, Physical Therapy and Reflexology [facility] [address] [facility], [address] [place]. [address] Services: Acupuncture and Chiropractic [facility] [address] [place] [address] [employer] [place] [email or web address] Help line 24 hours, 7 days/week, phone [phone] [address] [place] [address] Hours Monday - Monday 8:30 am- 5 pm Services include: ? information and referrals, educational materials ? transportation assistance ? nutritional supplements ? educational and support programs [place] Guidelines on Nutrition and Physical [...] hot dogs), desserts, high-fat dairy products and Nepali fries. Most of the studies about cancer [...] surveillance Assessment & Plan (10/22/2020 8:14 PM CARDIAC/VASCULAR SONOGRAPHER): Impression: Patient continues do well status post endovascular repair of his infrarenal abdominal aortic aneurysm. Surveillance CTA revealed widely patent endo repair with no evidence of endoleak or stent migration with a stable sycuan aneurysm sac. Plan: Recommend ongoing risk factor modifications and follow-up in 1 year for re-evaluation and repeat CTA abdomen and pelvis surveillance to evaluate his endovascular AAA repair. Benign hypertension 09/30/2016 Assessment & Plan (10/22/2020 8:14 PM CARDIAC/VASCULAR SONOGRAPHER): .Impression: Stable chronic hypertension. Plan: Medications reviewed [...]
--- OUTSIDE RECORDS SUMMARY | 2024-10-31 14:46 | XMS_ITS | Clinical Summary ---
Author Organization [facility] Address [address] [place] [address] Care Team Providers Care Aoc Operations Intelligence Officer Name Role Phone Olvin Roberts MD Primary Care Provider [phone] Allergies No known active allergies Medications pravastatin [...] Lung Cancer Survivorship Care Plan Provided by [facility] on 12/15/17 General Information Patient Name: Wesley Keene Patient : 1945 Care Team Medical Oncologist: Dr. Bertin Em Thoracic Surgeon: Dr. Manish Yeager Primary Care Physician: Chace Stafford MD, Delivery Assistant: Dr. Nicky Hernandez Cancer Staging Stage IIA [...] time. Will call primary care physician or cafe helper if breathing worsens or does not continue [...] 5. Annually after year 5. Dr. Em Delivery Assistant: As needed or directed. Dr. Hernandez Chest [...] cholesterol management blood sugar control blood pressure controlArizona Spine And Joint Hospitale health DEXA every 2 years calcium [...] STAR Program Cancer Rehabilitation Serves Debbie Morales [address] [place] [address] [facility] [address] [place] [address] [facility] Therapy Services [place] [address] [place] [address] [facility] - [facility] [address] [facility] [place] [address] [facility] Therapy Services - [place] [address] [facility], [address] [place] [address] [place] Survivorship Training Classes Please call [phone] to register. Each session is limited to 10 people. [facility] Conference Room First Floor [address] [place] [address] Debbie RodriguezSimba [facility]. Conference Room Third Floor [id number] [place], [place] [address] [address] [facility] Integrative Medicine & Healing Therapies [facility] Integrative Medicine and Therapy Services Michael/Simba [address] [facility], [address]. [address] Services: Acupuncture, Auriculotherapy, Chiropractic, Guided Imagery, Healing Touch, Massage Therapy, Nutritional Counseling, Physical Therapy (manual and traditional) and Reflexology [facility] [address] [place], [address] [place]. [address] Services: Acupuncture, Auriculotherapy, Chiropractic, and Massage Therapy [facility] Integrative Medicine and Therapy Services [facility] [address] [facility], [address] [place] [address] Services: Acupuncture, Auriculotherapy, Guided Imagery, Healing Touch, Massage Therapy, Lymphedema, Physical Therapy and Reflexology [facility] Integrative Medicine - [place] [address] [facility], [address] [place]. [address] Services: Acupuncture and Chiropractic [facility] [address] [place] [address]. [address] [place] [address] [employer] [email or web address] Help line 24 hours, 7 days/week, phone [phone] [place] [address] Hours Aguilar - Monday 8:30 am- 5 pm Services include: information and referrals, educational materials transportation assistance nutritional supplements educational and support programs [employer] Guidelines on Nutrition and Physical [...] hot dogs), desserts, high-fat dairy products and Tajik fries. Most of the studies about cancer [...] Encounters Date Type Department Care Team Description 10/28/2024 Orders Only [facility] Oncology and Hematology [facility] [address] [place] [address] Bertin Em MD 09/18/2024 External Device Data STL ABSTRACTION Provider, [...] on file Legal Sex Male 1:49 PM FIBER ANALYST Gender Identity Not on file Sexual Orientation [...] Description 11/06/2024 11:15 AM CDT Office Visit [facility] Oncology and Hematology - Nate [address] [facility] [address] [place] [address] Bertin Em MD [address] [facility] [address] [place] [address] Health Maintenance Due Date Last [...] 02/09/2029 02/09/2019 Medical Devices Implanted Type Area Assignment Desk Assistant Device Identifier Shelf Expiration Date Model / Serial / Lot Adh Bioglue 10ml [id number] - [id number] Implanted:Qt y: 1 on 12/07/2016 by Manish Yeager MD at [facility] Biological Right: Chest [employer] 03/15/2017 [id number] / / [id number] Laurel Ptfe Thck [id number] - [id number] Implanted:Qt y: 1 on 12/07/2016 by Manish Yeager MD at [facility] Graft Right: Chest [employer] 02/17/2018 [id number] / / [id number] Sealant Tisseel 10ml [id number] - [id number] Implanted:Qt y: 1 on 11/24/2016 by Manish Yeager MD at [facility] Sealant Right: Chest [employer] [id number] 04/20/2018 [id number] / [id number] / [id number] Sealant Tisseel 10ml [id number] - [id number] Implanted:Qt y: 1 on 12/07/2016 by Manish Yeager MD at [facility] Sealant Right: Chest [employer] 04/20/2018 [id number] / / [id number] Rt Knee Wire Procedures Procedure Name Priority Date/Time Associated Diagnosis Comments CT CHEST ABDOMEN PELVIS W CONT Routine 10/28/2024 1:01 PM CDT from Last 3 Months Results * CT CHEST ABDOMEN PELVIS W CONT (10/28/2024 1:01 PM CDT) Anatomical Region Laterality Modality Chest Other Bertin Em MD CT ORDERABLES Final Result from Last 3 Months Insurance ([place]) [address] [place] [id number] MEDICARE PART A AND B [facility] SUPP MEDICARE PART A AND B BCBS SUPP Advance Directives For more information, please contact: [phone] * Full Code (Latest Code Status on [...] 3:53 PM 12/05/2016 2:25 PM Care Teams Aoc Operations Intelligence Officer Relationship Specialty Start Date End Date Olvin Roberts MD [address] [id number] PCP - General Family Practice 04/06/23
--- OUTSIDE RECORDS SUMMARY | 2024-10-31 14:46 | XMS_ITS | Clinical Summary ---
Author Organization [facility] Address [address] [place] [address] Care Team Providers Care Tire Duster Name Role Phone Nestor Oden MD Unavailable [phone] [place] ShoreOlvin MD Primary Care Provider [phone] Medications pravastatin (PRAVACHOL) 40 mg tablet Take [...] at rest at baseline - CTM - bart levico Abdominal mass 02/10/2019 Assessment & Plan (02/11/2019 [...] 10/11/2018 Assessment & Plan (10/22/2020 8:15 PM BLASTING WORKER): Impression: Chronic atrial fibrillation on daily anticoagulation. Plan: Continue daily anticoagulation and metoprolol for rate control as directed by his primary care physician and pipe covering molder. Assessment & Plan (02/11/2019 12:01 AM CDT): [...] Yeager Primary Care Physician: Chace Stafford MD, Game Breeding Farm Manager: Dr. Nicky Hernandez Cancer Staging Stage IIA [...] time. Will call primary care physician or assignment desk editor if breathing worsens or does not continue [...] 5. Annually after year 5. Dr. Em Game Breeding Farm Manager: As needed or directed. Dr. Hernandez Chest [...] cholesterol management blood sugar control blood pressure controlAurora West Hospitale health DEXA every 2 years calcium [...] STAR Program Cancer Rehabilitation Serves Debbie Morales [address], [address] [place] [address] Phillip [place] [facility] [address] [place] [address] [facility] Therapy Services [address] [place] [address] [facility] Therapy Services [facility] [address] [facility], [address] [place] [address] [facility] Therapy [facility] [address] [facility], [address] [place] [address] [facility] Survivorship Training Classes Please call [phone] to register. Each session is limited to 10 people. Phillip Austin [facility] Conference Room First Floor [address] [place] [address] [address] Conference Room Third Floor [address] [place] [address] [facility] Integrative Medicine and Therapy Services [place] [address] [facility], [address]. [address] Services: Acupuncture, Auriculotherapy, Chiropractic, Guided Imagery, Healing Touch, Massage Therapy, Nutritional Counseling, Physical Therapy (manual and traditional) and Reflexology [facility] [address], [address] [place]. [address] Services: Acupuncture, Auriculotherapy, Chiropractic, and Massage Therapy [facility] Integrative Medicine and Therapy Services [facility] [address] [facility], [address] [place] [address] Services: Acupuncture, Auriculotherapy, Guided Imagery, Healing Touch, Massage Therapy, Lymphedema, Physical Therapy and Reflexology [facility] [address] [facility], [address] [place]. [address] Services: Acupuncture and Chiropractic [facility] [address] [place] [address]. [address] [place] [address] [place] [employer] Cancer [employer] [email or web address] Help line 24 hours, 7 days/week, phone [phone] [place] [address] Hours Monday - Monday 8:30 am- 5 pm Services include: ? information and referrals, educational materials ? transportation assistance ? nutritional supplements ? educational and support programs [place] [employer] Cancer Society Guidelines on Nutrition and Physical [...] hot dogs), desserts, high-fat dairy products and Uruguayan fries. 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 Surveillance CTA revealed widely patent endo repair with no evidence of endoleak or stent migration with a stable nansemond indian tribe aneurysm sac. Plan: Recommend ongoing risk factor modifications and follow-up in 1 year for re-evaluation and repeat CTA abdomen and pelvis surveillance to evaluate his endovascular AAA repair. Benign hypertension 09/30/2016 Assessment & Plan (10/22/2020 8:14 PM BLASTING WORKER): .Impression: Stable chronic hypertension. Plan: Medications reviewed [...] Type Department Care Team Description 10/29/2024 Telephone [facility] Medical [facility] Cardiology [address] [place] [address] Peyman Gaona MD 09/11/2024 10:30 AM BLASTING WORKER Office Visit [facility] Medical [facility] Cardiology [address] [place] [address] Peyman Gaona MD Chronic right-sided heart failure [...] on file Legal Sex Male 11:00 AM BLASTING WORKER Gender Identity Not on file Sexual Orientation Not on file Obstetrics History Last Filed Vital Signs Vital Sign Reading Time Taken Comments Blood Pressure 88/60 09/11/2024 10:41 AM BLASTING WORKER Pulse 54 09/11/2024 10:41 AM BLASTING WORKER Temperature 36.3 C (97.4 F) 09/24/2019 1:26 PM BLASTING WORKER Respiratory Rate 15 06/24/2020 10:44 AM BLASTING WORKER Oxygen Saturation 84% 09/11/2024 10:41 AM BLASTING WORKER Inhaled Oxygen Concentration - - Weight 88.9 kg (196 lb) 09/11/2024 10:41 AM BLASTING WORKER Height 177.8 cm (5' 10 ) 09/11/2024 10:41 AM BLASTING WORKER Body Mass Index 28.12 09/11/2024 10:41 AM BLASTING WORKER Plan of Treatment Health Maintenance Due Date [...] history exists Medical Devices Implanted Type Area Tonguer Device Identifier Shelf Expiration Date Model / Serial / Lot [employer]hew/Richco/Ort ho [id number] Intertan 10mm 20cm Trochanter 130d Short Nail Intramedullary - [id number] Implanted:Qty: 1 on 02/11/2019 by Humera Damon MD at [facility] Right: Femur [employer]O rtho [id number] 10/30/2028 [id number] / / [id number] [employer]Rich[employer]/Ort ho [id number] Intertan 115mm 110mm Lag Compression Interlock Integrated - [id number] Implanted:Qty: 1 on 02/11/2019 by Humera Damon MD at [facility] Right: Femur [employer]O rtho [id number] 09/24/2028 [id number] / / [id number] [employer]Rich[employer]/Ort ho [id number] 5mm 37.5mm Low Profile Internal Hex Femur Screw Bone Trigen - [id number] Implanted:Qty: 1 on 02/11/2019 by Humera Damon MD at [facility] Right: Femur [employer]O rtho [id number] 12/02/2028 [id number] / / [id number] Procedures Procedure Name Priority Date/Time Associated Diagnosis Comments CTA ABDOMEN PELVIS W WO CONTRAST Schedule Routine, Read Routine (OP Routine) 10/28/2021 8:40 AM BLASTING WORKER Abdominal aortic aneurysm (AAA) without rupture from Last 3 Months or Most Recently Relevant to Health Maintenance Results * CTA Abdomen Pelvis W WO Contrast (10/28/2021 8:40 AM BLASTING WORKER) Anatomical Region Laterality Modality Body N/A Computed Tomogra phy 10/28/2021 9:07 AM BLASTING WORKER Narrative 10/28/2021 9:36 AM BLASTING WORKER EXAM DESCRIPTION: CTA ABDOMEN PELVIS REASON FOR [...] Munir Olivera M.D. ML T: Report ID: [id number] Reading Location: [id number] Procedure Note Munir Olivera MD - 10/28/2021 [...] 10/28/2021 9:36 AM - Electronically signed by Munri Olivera M.D. ML T: Report ID: [id number] Reading Location: [place] [address] us Nestor Oden MD IMG CT PROCEDURES Final Re sult from Last 3 Months or Most Recently Relevant to Health Maintenance Insurance MEDICARE [facility] MEDICARE [facility] MEDICARE [facility] MEDICARE SUPPLEMENT Advance Directives For more information, please contact: [phone] * Full Code (Latest Code Status on File) Date Activated Date Inactivated Comments 02/10/2019 8:45 PM 02/20/2019 9:19 PM Care Teams Tire Duster Relationship Specialty Start Date End Date Olvin Roberts MD [address] [facility] [address] [place] [address] PCP - General Family Practice 07/05/23 Nestor Oden MD [address] [facility] [address] [place] [address] Surgeon Vascular Surgery 10/28/22
--- OUTSIDE RECORDS SUMMARY | 2024-10-31 14:46 | XMS_ITS | Encounter Summary ---
Author Organization [facility] Facility Care Team Providers Care Payroll Bookkeeper Name Role Phone Chace Stafford MD Primary Care Provider [phone] Phillip Bañuelos NP Primary Care Provider [phone] Jimmy Means DO Primary Care Provider [phone] Nestor Oden MD Unavailable [phone] Olvin Roberts MD Primary Care Provider [phone] Encounter Details Date Type Department Care Team (Latest Contact Info) Description 10/11/2016 Orders Only [facility] CLINCONV ProviderAydin MD [address] [place] [address] Social History Tobacco Use Types Packs/Day Years Used Date Smoking Tobacco: Never Assessed Sex and Gender Information Value Date Recorded Sex Assigned at Not on file Legal Sex Male 11:00 AM RESIDENT PROGRAM SPECIALIST Gender Identity Not on file Sexual Orientation Not on file documented as of this encounter Plan of Treatment Not on file documented as of this encounter Procedures Procedure Name Priority Date/Time Associated Diagnosis Comments PROCEDURE - RESULT 09/28/2016 12 :00 AM RESIDENT PROGRAM SPECIALIST documented in this encounter Results * PROCEDURE - RESULT (09/28/2016 12:00 AM RESIDENT PROGRAM SPECIALIST) Narrative 09/28/2016 12:00 AM RESIDENT PROGRAM SPECIALIST Ordered by an unspecified provider. us Historical Provider Final Res ult documented in this encounter Visit Diagnoses Not on filedocumented in this encounter Care Teams Payroll Bookkeeper Relationship Specialty Start Date End Date Chace Stafford MD [address] [place] [address] PCP - General Internal Medicine 08/17/18 01/06/19 Phillip Bañuelos NP [address] [facility] [address] [place] [address] PCP - General Nurse Practitioner 01/07/19 02/09/19 Jimmy Means DO [address] [facility] [address] [place] [address] PCP - General 02/10/19 07/04/23 Olvin Roberts MD [address] [facility] [address] [facility] [place] [address] PCP - General Family Practice 07/05/23 Nestor Oden MD [address] [facility] [address] [facility] [place] [address] Surgeon Vascular Surgery 10/28/22 documented as of this encounter
== END 2024-10-31 13:12 | disposition home or self-care (01) ==
LOC: ANHLAB 13:13
PROVIDERS: PCP Nurse Practitioner; Visit Provider Nurse Practitioner
DX: R73.9 Hyperglycemia, unspecified (principal); E78.5 Hyperlipidemia, unspecified
CPT/HCPCS: 36415; 80053; 80061; 83036

== ENCOUNTER 2024-11-06 10:35 | Outpatient (CLI) | payer MEDICARE, SELFPAY ==
[2024-11-06 10:57] LABS: Basophils Percent Auto 0.3 % (0.2-1.2); Eosinophils Absolute Auto 0.1 K/mm3 (0-0.3); Eosinophils Percent Auto 0.9 % (0-4.4); Hemoglobin 14.5 g/dL (14.0-18.0); Immature Granulocyte Absolute 0.03 K/mm3 (0.00-0.031); Immature Granulocyte Percent A 0.3 % (0-0.5); Lymphocytes Percent Auto 7.5 % (18.3-44.2); Mean Corpuscular HGB Conc 31.5 g/dl (32-36); Mean Corpuscular Hemoglobin 30.9 pg (26-34); Mean Corpuscular Volume 98.1 fl (80-100); Monocytes Absolute Auto 1.1 K/mm3 (0.1-0.6); Monocytes Percent Auto 10.4 % (2.6-8.5); Neutrophils Absolute Auto 8.6 K/mm3 (1.3-6.7); Neutrophils Percent Auto 80.6 % (45.5-73.1); Platelet Count Result 227 k/mm3 (150-375); Red Blood Count 4.69 M/mm3 (4.6-6.20); Red Cell Distribution Width 13.6 % (11.5-14.5); White Blood Count 10.7 K/mm3 (4.5-10.0)
[2024-11-06 11:01] LABS: Blood Urea Nitrogen 19 mg/dL (8-26); Carbon Dioxide 35 mmol/L (22-30); Chloride 94 mmol/L (98-109); Estimated Glomerular Filt Rate > 60; Glucose 89 mg/dL (70-105); Ionized Calcium (POC) 1.09 mmol/L (1.11-1.31); Potassium 4.2 mmol/L (3.5-4.9); Sodium 137 mmol/L (138-146)
[2024-11-06 11:42] LABS: Alanine Aminotransferase 13 U/L (6-50); Albumin Level 3.7 g/dL (3.5-5.1); Alkaline Phosphatase 88 U/L (38-126); Anion Gap 7 mmol/L (4-12); Aspartate Amino Transferase 20 U/L (17-59); Bilirubin,Total 1.1 mg/dL (0.2-1.3); Blood Urea Nitrogen 20 mg/dL (9-20); Calcium 8.5 mg/dL (8.4-10.2); Carbon Dioxide 35 mmol/L (22-30); Chloride 94 mmol/L (98-107); Estimated Glomerular Filt Rate > 60; Glucose 91 mg/dL (65-110); Potassium 4.3 mmol/L (3.4-5.0); Sodium 136 mmol/L (137-145)
--- OUTSIDE RECORDS SUMMARY | 2024-11-06 12:09 | XMS_ITS | Clinical Summary ---
Author Organization [facility] Address [address] [place] [address] Care Team Providers Care Pack Puller Name Role Phone Nestor Oden MD Unavailable [phone] [place] MD Primary Care Provider [phone] Medications pravastatin (PRAVACHOL) 40 mg tablet Take [...] 10/11/2018 Assessment & Plan (10/22/2020 8:15 PM ENTERTAINMENT AGENT): Impression: Chronic atrial fibrillation on daily anticoagulation. Plan: Continue daily anticoagulation and metoprolol for rate control as directed by his primary care physician and zookeeper. Assessment & Plan (02/11/2019 12:01 AM CDT): [...] Yeager Primary Care Physician: Chace Stafford MD, Shot Polisher And Inspector: Dr. Nicky Hernandez Cancer Staging Stage IIA [...] time. Will call primary care physician or ornamental metal erector apprentice if breathing worsens or does not continue [...] 5. Annually after year 5. Dr. Em Shot Polisher And Inspector: As needed or directed. Dr. Hernandez Chest [...] [facility] Cancer Rehabilitation Serves Debbie Morales [address] [place] [address] Phillip Austin [facility] [address] [place] [address] [facility] Therapy Services [place] [address] [place] [address] [facility] Therapy Services [facility] [address] [facility], [address] [place] [address] [facility] Therapy [facility] [address] [facility], [address] [place] [address] [facility] Survivorship Training Classes Please call [phone] to register. Each session is limited to 10 people. Phillip Austin [facility] Conference Room First Floor [address] [place] [address] [address] Conference Room Third Floor [address] [place] [address] [facility] Integrative Medicine and Therapy Services [place] [address] [facility], [address], [place]. [address] Services: Acupuncture, Auriculotherapy, Chiropractic, Guided Imagery, Healing Touch, Massage Therapy, Nutritional Counseling, Physical Therapy (manual and traditional) and Reflexology [facility] [place] [address], [address] [place]. [address] Services: Acupuncture, Auriculotherapy, Chiropractic, and Massage Therapy [facility] Integrative Medicine and Therapy Services [facility] Option [address] [facility], [address] [place] [address] Services: Acupuncture, Auriculotherapy, Guided Imagery, Healing Touch, Massage Therapy, Lymphedema, Physical Therapy and Reflexology [facility] [address] [facility], [address] [place]. [address] Services: Acupuncture and Chiropractic [facility] [address] [place] [address]. [address] [place] [address] [employer] [email or web address] Help line 24 hours, 7 days/week, phone [phone] [place] [address] Hours Monday - Monday 8:30 am- 5 pm Services include: ? information and referrals, educational materials ? transportation assistance ? nutritional supplements ? educational and support programs [employer] Guidelines on Nutrition and Physical [...] hot dogs), desserts, high-fat dairy products and [place] Islander fries. Most of the studies about cancer [...] surveillance Assessment & Plan (10/22/2020 8:14 PM ENTERTAINMENT AGENT): Impression: Patient continues do well status post endovascular repair of his infrarenal abdominal aortic aneurysm. Surveillance CTA revealed widely patent endo repair with no evidence of endoleak or stent migration with a stable port heiden aneurysm sac. Plan: Recommend ongoing risk factor modifications and follow-up in 1 year for re-evaluation and repeat CTA abdomen and pelvis surveillance to evaluate his endovascular AAA repair. Benign hypertension 09/30/2016 Assessment & Plan (10/22/2020 8:14 PM ENTERTAINMENT AGENT): .Impression: Stable chronic hypertension. Plan: Medications reviewed [...] Type Department Care Team Description 10/29/2024 Telephone [facility] Medical [facility] Cardiology [address] [place] [address] Peyman Gaona MD 09/11/2024 10:30 AM ENTERTAINMENT AGENT Office Visit [facility] Medical [facility] Cardiology [address] [place] [address] Peyman Gaona MD Chronic right-sided heart failure [...] on file Legal Sex Male 11:00 AM ENTERTAINMENT AGENT Gender Identity Not on file Sexual Orientation Not on file Obstetrics History Last Filed Vital Signs Vital Sign Reading Time Taken Comments Blood Pressure 88/60 09/11/2024 10:41 AM ENTERTAINMENT AGENT Pulse 54 09/11/2024 10:41 AM ENTERTAINMENT AGENT Temperature 36.3 C (97.4 F) 09/24/2019 1:26 PM ENTERTAINMENT AGENT Respiratory Rate 15 06/24/2020 10:44 AM ENTERTAINMENT AGENT Oxygen Saturation 84% 09/11/2024 10:41 AM ENTERTAINMENT AGENT Inhaled Oxygen Concentration - - Weight 88.9 kg (196 lb) 09/11/2024 10:41 AM ENTERTAINMENT AGENT Height 177.8 cm (5' 10 ) 09/11/2024 10:41 AM ENTERTAINMENT AGENT Body Mass Index 28.12 09/11/2024 10:41 AM ENTERTAINMENT AGENT Plan of Treatment Health Maintenance Due Date [...] history exists Medical Devices Implanted Type Area Admin Secretary Device Identifier Shelf Expiration Date Model / Serial / Lot [employer]/Richco/Ort ho [id number] Intertan 10mm 20cm Trochanter 130d Short Nail Intramedullary - [id number] Implanted:Qty: 1 on 02/11/2019 by Humera Damon MD at [facility] Right: Femur [employer]Rich[employer]/O rtho [id number] 10/30/2028 [id number] / / [id number] [employer]Rich[employer]/Ort ho [id number] Intertan 115mm 110mm Lag Compression Interlock Integrated - [id number] Implanted:Qty: 1 on 02/11/2019 by Humera Damon MD at [facility] Right: Femur [employer]Rich[employer]/O rtho [id number] 09/24/2028 [id number] / / [id number] [employer]Rich[employer]/Ort ho [id number] 5mm 37.5mm Low Profile Internal Hex Femur Screw Bone Trigen - [id number] Implanted:Qty: 1 on 02/11/2019 by Humera Damon MD at [facility] Right: Femur [employer]Rich[employer]/O rtho [id number] 12/02/2028 [id number] / / [id number] Procedures Procedure Name Priority Date/Time Associated Diagnosis Comments CTA ABDOMEN PELVIS W WO CONTRAST Schedule Routine, Read Routine (OP Routine) 10/28/2021 8:40 AM ENTERTAINMENT AGENT Abdominal aortic aneurysm (AAA) without rupture from Last 3 Months or Most Recently Relevant to Health Maintenance Results * CTA Abdomen Pelvis W WO Contrast (10/28/2021 8:40 AM ENTERTAINMENT AGENT) Anatomical Region Laterality Modality Body N/A Computed Tomogra phy 10/28/2021 9:07 AM ENTERTAINMENT AGENT Narrative 10/28/2021 9:36 AM ENTERTAINMENT AGENT EXAM DESCRIPTION: CTA ABDOMEN PELVIS REASON FOR [...] Munir Olivera M.D. ML T: Report ID: [id number] Reading Location: [id number] Procedure Note Munir Olivera MD - 10/28/2021 [...] is stable. MUSCULOSKELETAL: Internal fixation with femoral dyaana and retrograde interlocking femoral head screw again [...] Munir Olivera M.D. ML T: Report ID: [id number] Reading Location: [place] [address] us Nestor Oden MD IMG CT PROCEDURES Final Re sult from Last 3 Months or Most Recently Relevant to Health Maintenance Insurance MEDICARE [facility] MEDICARE [facility]IC[facility] MEDICARE SUPPLEMENT Advance Directives For more information, please contact: [phone] * Full Code (Latest Code Status on File) Date Activated Date Inactivated Comments 02/10/2019 8:45 PM 02/20/2019 9:19 PM Care Teams Pack Puller Relationship Specialty Start Date End Date Olvin Roberts MD [address] [place] [address] PCP - General Family Practice 07/05/23 Nestor Oden MD [address] [place] [address] Surgeon Vascular Surgery 10/28/22
--- OUTSIDE RECORDS SUMMARY | 2024-11-06 12:09 | XMS_ITS | Encounter Summary ---
Author Organization [facility] Care Team Providers Care Food Service Sales Representatives Name Role Phone Chace Stafford MD Primary Care Provider [phone] Phillip Bañuelos NP Primary Care Provider [phone] Jimmy Means DO Primary Care Provider [phone] Nestor Oden MD Unavailable [phone] Olvin Roberts MD Primary Care Provider [phone] Encounter Details Date Type Department Care Team (Latest Contact Info) Description 10/18/2016 Orders Only [facility]IN[facility] ProviderAydin MD [address] [place] [address] Social History Tobacco Use Types Packs/Day Years Used Date Smoking Tobacco: Never Assessed Sex and Gender Information Value Date Recorded Sex Assigned at Not on file Legal Sex Male 11:00 AM SPORTS EQUIPMENT REPAIRER Gender Identity Not on file Sexual Orientation Not on file documented as of this encounter Plan of Treatment Not on file documented as of this encounter Procedures Procedure Name Priority Date/Time Associated Diagnosis Comments PROCEDURE - RESULT 10/05/2016 12 :00 AM SPORTS EQUIPMENT REPAIRER documented in this encounter Results * PROCEDURE - RESULT (10/05/2016 12:00 AM SPORTS EQUIPMENT REPAIRER) Narrative 10/05/2016 12:00 AM SPORTS EQUIPMENT REPAIRER Ordered by an unspecified provider. us Historical Provider Final Res ult documented in this encounter Visit Diagnoses Not on filedocumented in this encounter Care Teams Food Service Sales Representatives Relationship Specialty Start Date End Date Chace Stafford MD [address] [place] [address] PCP - General Internal Medicine 08/17/18 01/06/19 Phillip Bañuelos NP [address] [facility] [address] [place] [address] PCP - General Nurse Practitioner 01/07/19 02/09/19 Jimmy Means DO [address] [facility] [address] [place] [address] PCP - General 02/10/19 07/04/23 Olvin Roberts MD [address] [facility] [place] [address] PCP - General Family Practice 07/05/23 Nestor Oden MD [address] [facility] [place] [address] Surgeon Vascular Surgery 10/28/22 documented as of this encounter
--- OUTSIDE RECORDS SUMMARY | 2024-11-06 12:09 | XMS_ITS | Referral Summary ---
Author Organization [facility] Address [address] [place] [address] Care Team Providers Care Registered Dietician Name Role Phone Nestor Oden MD Unavailable [phone] Olvin Roberts MD Primary Care Provider [phone] Encounters Date Type Department Care Team Description 10/29/2024 Telephone [facility] Medical [facility] Cardiology [address] [facility] [address] [place] [address] Peyman Gaona MD 09/11/2024 10:30 AM BRANCH COORDINATOR Office Visit [facility] Cardiology [address] [facility] [address] [place] [address] Peyman Gaona MD Chronic right-sided heart failure [...] 10/11/2018 Assessment & Plan (10/22/2020 8:15 PM BRANCH COORDINATOR): Impression: Chronic atrial fibrillation on daily anticoagulation. Plan: Continue daily anticoagulation and metoprolol for rate control as directed by his primary care physician and information clerk brokerage. Assessment & Plan (02/11/2019 12:01 AM CDT): H/o chronic Afib on warfarin at home, dilt for rate control. S/p failed electrocardioversion in December 2018 - hold AC - cont dilt ER 180 daily - EKG Lung cancer 12/21/2016 Overview (03/08/2019): Survivorship care place completed 12/15/17. Mailed survivorship asco answers, and care plan with included breathing exercises. Lung Cancer Survivorship Care Plan Provided by [facility] on 12/15/17 General Information Patient Name: Wesley Keene Patient : 1945 Care Team Medical Oncologist: Dr. Bertin Em Thoracic Surgeon: Dr. Manish Yeager Primary Care Physician: Chace Stafford MD, Summer School Coordinator: Dr. Nicky Hernandez Cancer Staging Stage IIA [...] time. Will call primary care physician or hospital chief executive officer if breathing worsens or does not continue [...] 5. Annually after year 5. Dr. Em Summer School Coordinator: As needed or directed. Dr. Hernandez Chest [...] management blood sugar control blood pressure controlArizona State Hospitale health DEXA every 2 years calcium [...] Cancer Rehabilitation Serves Debbie Cottrell and Michael [address] [place] [address] Phillip Austin [place] [address] [place] [address] [facility] - [place] [address] [place] [address] [facility] [address] [facility], [address] [place] [address] [facility] - [place] [address] [facility], [address] [place] [address] [facility] Survivorship Training Classes Please call [phone] to register. Each session is limited to 10 people. Phillip [facility] Conference Room First Floor [address] [place] [address] [facility]. Conference Room Third Floor [address] [place] [address] [facility] Therapy [facility] [place] [address] [facility], [address] [place]. [address] Services: Acupuncture, Auriculotherapy, Chiropractic, Guided Imagery, Healing Touch, Massage Therapy, Nutritional Counseling, Physical Therapy (manual and traditional) and Reflexology [facility] [address], [address] [place]. [address] Services: Acupuncture, Auriculotherapy, Chiropractic, and Massage Therapy [facility] and Therapy [facility] Cancer [place] Option [address] [facility], [address] [place] [address] Services: Acupuncture, Auriculotherapy, Guided Imagery, Healing Touch, Massage Therapy, Lymphedema, Physical Therapy and Reflexology [facility] [address] [facility], [address] [place]. [address] Services: Acupuncture and Chiropractic [facility] [address] [place] [address]. [address] [place] [address] [employer] [email or web address] Help line 24 hours, 7 days/week, phone [phone] [place] [address] Hours Aguilar - Monday 8:30 am- 5 pm Services include: ? information and referrals, educational materials ? transportation assistance ? nutritional supplements ? educational and support programs [employer] Guidelines on Nutrition and Physical [...] hot dogs), desserts, high-fat dairy products and Congolese fries. 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 Surveillance CTA revealed widely patent endo repair with no evidence of endoleak or stent migration with a stable [place] aneurysm sac. Plan: Recommend ongoing risk factor modifications and follow-up in 1 year for re-evaluation and repeat CTA abdomen and pelvis surveillance to evaluate his endovascular AAA repair. Benign hypertension 09/30/2016 Assessment & Plan (10/22/2020 8:14 PM BRANCH COORDINATOR): .Impression: Stable chronic hypertension. Plan: Medications reviewed [...] on file Legal Sex Male 11:00 AM BRANCH COORDINATOR Gender Identity Not on file Sexual Orientation Not on file Last Filed Vital Signs Vital Sign Reading Time Taken Comments Blood Pressure 88/60 09/11/2024 10:41 AM BRANCH COORDINATOR Pulse 54 09/11/2024 10:41 AM BRANCH COORDINATOR Temperature 36.3 C (97.4 F) 09/24/2019 1:26 PM BRANCH COORDINATOR Respiratory Rate 15 06/24/2020 10:44 AM BRANCH COORDINATOR Oxygen Saturation 84% 09/11/2024 10:41 AM BRANCH COORDINATOR Inhaled Oxygen Concentration - - Weight 88.9 kg (196 lb) 09/11/2024 10:41 AM BRANCH COORDINATOR Height 177.8 cm (5' 10 ) 09/11/2024 10:41 AM BRANCH COORDINATOR Body Mass Index 28.12 09/11/2024 10:41 AM BRANCH COORDINATOR Plan of Treatment Not on file Medical Devices Implanted Type Area Rubber Production Machine Operator Device Identifier Shelf Expiration Date Model / Serial / Lot [employer]/Richco/Ort ho [id number] Intertan 10mm 20cm Trochanter 130d Short Nail Intramedullary - [id number] Implanted:Qty: 1 on 02/11/2019 by Humera Damon MD at [facility] Right: Femur [employer]Rich[employer]/O rtho [id number] 10/30/2028 [id number] / / [id number] [employer]Rich[employer]/Ort ho [id number] Intertan 115mm 110mm Lag Compression Interlock Integrated - [id number] Implanted:Qty: 1 on 02/11/2019 by Humera Damon MD at [facility] Right: Femur [employer]Rich[employer]/O rtho [id number] 09/24/2028 [id number] / / [id number] [employer]Rich[employer]/Ort ho [id number] 5mm 37.5mm Low Profile Internal Hex Femur Screw Bone Trigen - [id number] Implanted:Qty: 1 on 02/11/2019 by Humera Damon MD at [facility] Right: Femur [employer]Rich[employer]/O rtho [id number] 12/02/2028 [id number] / / [id number] Procedures Procedure Name Priority Date/Time Associated Diagnosis Comments CTA ABDOMEN PELVIS W WO CONTRAST Schedule Routine, Read Routine (OP Routine) 10/28/2021 8:40 AM BRANCH COORDINATOR Abdominal aortic aneurysm (AAA) without rupture from Last 3 Months or Most Recently Relevant to Health Maintenance Results * CTA Abdomen Pelvis W WO Contrast (10/28/2021 8:40 AM BRANCH COORDINATOR) Anatomical Region Laterality Modality Body N/A Computed Tomogra phy 10/28/2021 9:07 AM BRANCH COORDINATOR Narrative 10/28/2021 9:36 AM BRANCH COORDINATOR EXAM DESCRIPTION: CTA ABDOMEN PELVIS REASON FOR [...] Munir Olivera M.D. ML T: Report ID: [id number] Reading Location: [id number] Procedure Note Munir Olivera MD - 10/28/2021 [...] Munir Olivera M.D. ML T: Report ID: [id number] Reading Location: [id number] Nestor Oden MD IMG CT PROCEDURES Final Re sult from Last 3 Months or Most Recently Relevant to Health Maintenance Insurance MEDICARE [facility] MEDICARE [facility] MEDICARE [employer]UE [employer]OSS MEDICARE SUPPLEMENT Advance Directives For more information, please contact: [phone] * Full Code (Latest Code Status on File) Date Activated Date Inactivated Comments 02/10/2019 8:45 PM 02/20/2019 9:19 PM Care Teams Registered Dietician Relationship Specialty Start Date End Date Olvin Roberts MD [address] [facility] [address] [place] [address] PCP - General Family Practice 07/05/23 Nestor Oden MD [address] [facility] [address] [place] [address] Surgeon Vascular Surgery 10/28/22
--- OUTSIDE RECORDS SUMMARY | 2024-11-06 12:09 | XMS_ITS ---
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 Mailed survivorship asco answers, and care plan with included breathing exercises. Lung Cancer Survivorship Care Plan Provided by [facility] on 12/15/17 General Information Patient Name: Wesley Keene Patient : 1945 Care Team Medical Oncologist: Dr. Bertin Em Thoracic Surgeon: Dr. Manish Yeager Primary Care Physician: Chace Stafford MD, Pharmacist Manager: Dr. Nicky Hernandez Cancer Staging Stage [...] time. Will call primary care physician or performance management consultant if breathing worsens or does not [...] 5. Annually after year 5. Dr. Em Pharmacist Manager: As needed or directed. Dr. Hernandez [...] cholesterol management blood sugar control blood pressure [facility]Dignity Health St[facility] health DEXA every 2 years calcium with vitamin D weight bearing exercise Call your doctor if you have any of these signs and symptoms: cough, dyspnea on exertion and shortness of breath Additional Resources: Patients may have many varied questions and concerns after their cancer treatment ends. A list of local resources is provided below to assist you. [facility] Cancer Rehabilitation Serves Debbie Cottrell and Michael [address] [place] [address] Phillip Norman [facility] [address] [place] [address] [facility] - [place] [address] [place] [address] [facility] - [facility] [address] [facility], [address] [place] [address] [facility] Therapy Services - [place] [address] [facility] [place] [address] [facility] Survivorship Training Classes Please call [phone] to register. Each session is limited to 10 people. [facility] Conference Room First Floor [address] [place] [address] [facility] Michael[facility]. Conference Room Third Floor [address] [place] [address] [facility] Integrative Medicine & Healing Therapies [facility] Integrative Medicine and Therapy Services [address] [address] [facility], [address] [place]. [address] Services: Acupuncture, Auriculotherapy, Chiropractic, Guided Imagery, Healing Touch, Massage Therapy, Nutritional Counseling, Physical Therapy (manual and traditional) and Reflexology [facility] [address] [facility], [address] [place]. [address] Services: Acupuncture, Auriculotherapy, Chiropractic, and Massage Therapy [facility] Integrative Medicine and Therapy [facility] [address] [facility] [facility], [address] [place] [address] Services: Acupuncture, Auriculotherapy, Guided Imagery, Healing Touch, Massage Therapy, Lymphedema, Physical Therapy and Reflexology [facility] Medicine - [place] [address] [facility], [address] [place]. [address] Services: Acupuncture and Chiropractic [facility] [address] [place] [address] [employer] [email or web address] Help line 24 hours, 7 days/week, phone [phone] [place] [address] Hours Monday - Monday 8:30 am- 5 pm Services include: information and referrals, educational materials transportation assistance nutritional supplements educational and support programs [employer] Guidelines on Nutrition and Physical [...] hot dogs), desserts, high-fat dairy products and Lao fries. Most of the studies about cancer [...]
--- OUTSIDE RECORDS SUMMARY | 2024-11-06 12:09 | XMS_ITS | Clinical Summary ---
Author Organization [facility] Address [address] [place] [address] Care Team Providers Care Flying Instructor Name Role Phone Olvin Roberts MD Primary Care Provider [phone] Allergies No known active allergies Medications pravastatin (PRAVACHOL) 40 mg tablet Take 40 mg by mouth late in the day. Active aspirin (ECOTRIN EC) 81 mg Tablet, Delayed Release (E.C.) Take 81 mg by mouth daily. Active FLUZONE HIGH-DOSE , PF, 180 mcg/0.5 mL Syringe syringe ADM 0.5ML IM UTD 0 06/24/20 18 Active potassium chloride (K-TAB) 20 mEq Extended Release tablet TK 1 T PO QD WF 5 10/03/19 19 Active PROAIR HFA 90 mcg/actuation inhaler INHALE 2 PUFFS QID PRN 6 08/19/20 18 Active metoprolol tartrate (LOPRESSOR) 100 mg tablet Take 100 mg by mouth 2 times daily. Active tamsulosin (FLOMAX) 0.4 mg capsule Take [...] office injection administered by the provider Active LORazepam (ATIVAN) 1 mg tabletIndicatio ns:Malignant neoplasm of lung, unspecified laterality, unspecified part of lung (CMS/HCC) Take 1 Tablet (1 mg) by mouth see administration instructions. Take prior to CT scan 2 Tablet 04/11/20 24 Active apixaban (ELIQUIS) 5 mg tablet Take 5 mg by mouth 2 times daily. 10/30/19 25 Active Breztri Aerosphere 160 mcg-9mcg-4.8mcg /actuation HFA aerosol inhaler Take 2 Puffs by inhalation 2 times daily. Active warfarin (COUMADIN) 2 mg tablet 6 10/11/19 19 025 Discontinu ed(Alterna te therapy prescribed ) mometasone/form oterol (DULERA INHALATION) Take by inhalation. 025 Discontinu ed(Alterna te therapy prescribed ) fluticasone propion-salmete roL 232-14 mcg/actuation Aerosol Powdr Breath Activated 08/05/20 20 025 Discontinu ed(Alterna te therapy prescribed ) ipratropium-alb uteroL (DUONEB) 0.5 mg-3 mg(2.5 mg base)/3 mL Solution for Nebulization USE 3 ML VIA NEBULIZER TWICE DAILY NEEDED FOR SHORTNESS OF BREATH OR WHEEZING 09/01/19 025 Discontinu ed(Alterna te therapy prescribed ) Active Problems Problem Noted Date Diagnosed Date [...] Yeager Primary Care Physician: Chace Stafford MD, Vessel Scrapper Helper: Dr. Nicky Hernandez Cancer Staging Stage [...] time. Will call primary care physician or disability rater if breathing worsens or does not continue [...] 5. Annually after year 5. Dr. Em Vessel Scrapper Helper: As needed or directed. Dr. Hernandez [...] management blood sugar control blood pressure [facility] health DEXA every 2 years [...] [facility] Serves Debbie Morales [address], [address] [place] [address] Parma Norman [facility] [address], [address] [place] [address] [facility] [place] [address] [place] [address] [facility] [address], [address] [place] [address] [facility] - [place] [address] [place] [address] [place] Surviv[facility] Training Classes Please call [phone] to register. Each session is limited to 10 people. Phillip Norman [facility] Conference Room First Floor [address] [place] [address] [address] Conference Room Third Floor [id number] [place] [address] [facility] Integrative Medicine & Healing Therapies [facility] Integr[facility] Medicine and Therapy Services [place] [address] [facility] [place]. [address] Services: Acupuncture, Auriculotherapy, Chiropractic, Guided Imagery, Healing Touch, Massage Therapy, Nutritional Counseling, Physical Therapy (manual and traditional) and Reflexology [facility] [address], [address] [place]. [address] Services: Acupuncture, Auriculotherapy, Chiropractic, and Massage Therapy [facility] Integrative Medicine and Therapy [facility] [place] Option 1 [address], [address] [place] [address] Services: Acupuncture, Auriculotherapy, Guided Imagery, Healing Touch, Massage Therapy, Lymphedema, Physical Therapy and Reflexology [facility] [address], [address] [place]. [address] Services: Acupuncture and Chiropractic [facility] [address] [place] [address] [employer] [email or web address] Help line 24 hours, 7 days/week, phone [phone] [address] [place] [address] Hours Monday - Monday 8:30 am- 5 pm Services include: information and referrals, educational materials transportation assistance nutritional supplements educational and support programs [employer] Guidelines on Nutrition and Physical [...] hot dogs), desserts, high-fat dairy products and Japanese fries. Most of the studies about cancer [...] Encounters Date Type Department Care Team Description 11/06/2024 11:15 AM CDT Office Visit [facility] Oncology and Hematology [facility] [address] [place] [address] Bertin Em MD Malignant neoplasm of lung, unspecified laterality, unspecified part of lung (CMS/HCC) (Primary Dx) 10/28/2024 Orders Only [facility] Oncology and Hematology [facility] [address] [place] [address] Bertin Em MD 09/18/2024 External Device Data [...] on file Legal Sex Male 1:49 PM POTATO CHIP PROCESSING SUPERVISOR Gender Identity Not on file Sexual Orientation Not on file Last Filed Vital Signs Vital Sign Reading Time Taken Comments Blood Pressure 105/89 11/06/2024 11:07 AM CDT Pulse 85 11/06/2024 11:07 AM CDT Temperature 36.1 C (97 F) 11/06/2024 11:07 AM CDT Respiratory Rate 15 11/06/2024 11:07 AM CDT Oxygen Saturation 93% 11/06/2024 11:07 AM CDT Inhaled Oxygen Concentration - - Weight 89.1 kg (196 lb 6.4 oz) 11/06/2024 11:07 AM CDT Height 177.8 cm (5' 10 ) 05/14/2024 12:17 PM CDT Body Mass Index 28.18 05/14/2024 12:17 PM CDT Plan of Treatment Upcoming Encounters Date Type Department Care Team (Late st Contact Info) Description 07/21/2025 10:15 AM POTATO CHIP PROCESSING SUPERVISOR Office Visit [facility] Oncology and Hematology - [place] [address] [place] [address] [facility] [address] [place] [address] Bertin Em MD [address] [facility] [address] [place] [address] Health Maintenance Due Date Last [...] 02/09/2029 02/09/2019 Medical Devices Implanted Type Area Grain Elevator Operator Device Identifier Shelf Expiration Date Model / Serial / Lot Adh Bioglue 10ml [id number] - [id number] Implanted:Qt y: 1 on 12/07/2016 by Manish Yeager MD at [facility] Biological Right: Chest [employer] 03/15/2017 [id number] / / [id number] [place] Ptfe Thck [id number] - [id number] Implanted:Qt y: 1 on 12/07/2016 by Manish Yeager MD at [facility] Graft Right: Chest [employer] 02/17/2018 [id number] / / [id number] Sealant Tisseel 10ml [id number] - [id number] Implanted:Qt y: 1 on 11/24/2016 by Manish Yeager MD at [facility] Sealant Right: Chest [employer] [id number] 04/20/2018 [id number] / [id number] / [id number] Sealant Tisseel 10ml [id number] - [id number] Implanted:Qt y: 1 on 12/07/2016 by Manish Yeager MD at [facility] Sealant Right: Chest [employer] 04/20/2018 [id number] / / [id number] Rt Knee Wire Procedures Procedure Name Priority Date/Time Associated Diagnosis Comments CT CHEST ABDOMEN PELVIS W CONT Routine 10/28/2024 1:01 PM CDT from Last 3 Months Results * CT CHEST ABDOMEN PELVIS W CONT (10/28/2024 1:01 PM CDT) Anatomical Region Laterality Modality Chest Computed Tomogra phy us Bertin Em MD CT ORDERABLES Final Result from Last 3 Months Insurance MEDICARE PART A AND B [facility] SUPP MEDICARE PART A AND B [facility] SUPP Advance Directives For more information, please contact: [phone] * Full Code (Latest Code Status on [...] 3:53 PM 12/05/2016 2:25 PM Care Teams Flying Instructor Relationship Specialty Start Date End Date Olvin Roberts MD [address] [place] [address] PCP - General Family Practice 04/06/23
--- OUTSIDE RECORDS SUMMARY | 2024-11-06 12:09 | XMS_ITS | Encounter Summary ---
Author Organization [facility] Facility Care Team Providers Care Single Wire Saw Operator Name Role Phone Chace Stafford MD Primary Care Provider [phone] Phillip Bañuelos NP Primary Care Provider [phone] Jimmy Means DO Primary Care Provider Nestor Oden MD Unavailable [phone] Olvin Roberts MD Primary Care Provider [phone] Encounter Details Date Type Department Care Team (Latest Contact Info) Description 10/03/2016 Orders Only [facility] CLINCONV Provider, MD Aydin [address] [place] [address] Social History Tobacco Use Types Packs/Day Years Used Date Smoking Tobacco: Never Assessed Sex and Gender Information Value Date Recorded Sex Assigned at Not on file Legal Sex Male 11:[address] LIGHT WIRER Gender Identity Not on file Sexual Orientation Not on file documented as of this encounter Plan of Treatment Not on file documented as of this encounter Procedures Procedure Name Priority Date/Time Associated Diagnosis Comments PROCEDURE - RESULT 10/03/2016 12 :[address] LIGHT WIRER PROCEDURE - RESULT 09/29/2016 12 :[address] LIGHT WIRER documented in this encounter Results * PROCEDURE - RESULT (10/03/2016 12:[address] LIGHT WIRER) Narrative 10/03/2016 12:[address] LIGHT WIRER Ordered by an unspecified provider. Historical Provider Final Res ult * PROCEDURE - RESULT (09/29/2016 12:[address] LIGHT WIRER) Narrative 09/29/2016 12:[address] LIGHT WIRER Ordered by an unspecified provider. Historical Provider Final Res ult documented in this encounter Visit Diagnoses Not on filedocumented in this encounter Care Teams Single Wire Saw Operator Relationship Specialty Start Date End Date Chace Stafford MD [address] [place] [address] PCP - General Internal Medicine 08/17/18 01/06/19 Phillip Bañuelos NP [address] [place] [address] PCP - General Nurse Practitioner 01/07/19 02/09/19 Jimmy Means DO [address] [place] [address] [address] [place] [address] PCP - General 02/10/19 07/04/23 Olvin Roberts MD [address] [facility] [place] [address] PCP - General Family Practice 07/05/23 Nestor Oden MD [address] [facility] [place] [address] Surgeon Vascular Surgery 10/28/22 documented as of this encounter
--- OUTSIDE RECORDS SUMMARY | 2024-11-06 12:09 | XMS_ITS | Encounter Summary ---
Author Organization [facility] Facility Care Team Providers Care Butcher Assistant Name Role Phone Chace Stafford MD Primary Care Provider [phone] Phillip Bañuelos NP Primary Care Provider [phone] Jimmy Means DO Primary Care Provider [phone] Nestor Oden MD Unavailable [phone] Olvin Roberts MD Primary Care Provider [phone] Encounter Details Date Type Department Care Team (Latest Contact Info) Description 02/28/2018 Orders Only [facility] CLINCONV Provider, MD Aydin [address] [place] [address] Social History Tobacco Use Types Packs/Day Years Used Date Smoking Tobacco: Never Assessed Sex and Gender Information Value Date Recorded Sex Assigned at Not on file Legal Sex Male 11:00 AM MANAGER AGENCY Gender Identity Not on file Sexual Orientation [...] on filedocumented in this encounter Care Teams Butcher Assistant Relationship Specialty Start Date End Date Chace Stafford MD [address] [facility] [address] [place] [address] PCP - General Internal Medicine 08/17/18 01/06/19 Phillip Bauñelos NP [address] [facility] [address] [place] [address] PCP - General Nurse Practitioner 01/07/19 02/09/19 Jimmy Means DO [address] [facility] [address] [place] [address] PCP - General 02/10/19 07/04/23 Olvin Roberts MD [address] [facility] [address] [place] [address] PCP - General Family Practice 07/05/23 Nestor Oden MD [address] [facility] [address] [place] [address] Surgeon Vascular Surgery 10/28/22 documented as of this encounter
--- OUTSIDE RECORDS SUMMARY | 2024-11-06 12:09 | XMS_ITS | Encounter Summary ---
Author Organization [facility] Facility Care Team Providers Care Coverage Specialist Rn Name Role Phone Chace Stafford MD Primary Care Provider [phone] Phillip Bañuelos NP Primary Care Provider [phone] Jimmy Means DO Primary Care Provider [phone] Nestor Oden MD Unavailable [phone] Olvin Roberts MD Primary Care Provider [phone] Encounter Details Date Type Department Care Team (Latest Contact Info) Description 10/11/2016 Orders Only [facility] CLINCONV ProviderAydin MD [address] [place] [address] Social History Tobacco Use Types Packs/Day Years Used Date Smoking Tobacco: Never Assessed Sex and Gender Information Value Date Recorded Sex Assigned at Not on file Legal Sex Male 11:00 AM AIR POLLUTION INSPECTOR Gender Identity Not on file Sexual Orientation Not on file documented as of this encounter Plan of Treatment Not on file documented as of this encounter Procedures Procedure Name Priority Date/Time Associated Diagnosis Comments PROCEDURE - RESULT 09/28/2016 12 :00 AM AIR POLLUTION INSPECTOR documented in this encounter Results * PROCEDURE - RESULT (09/28/2016 12:00 AM AIR POLLUTION INSPECTOR) Narrative 09/28/2016 12:00 AM AIR POLLUTION INSPECTOR Ordered by an unspecified provider. us Historical Provider Final Res ult documented in this encounter Visit Diagnoses Not on filedocumented in this encounter Care Teams Coverage Specialist Rn Relationship Specialty Start Date End Date Chace Stafford MD [address] [facility] [address] [place] [address] PCP - General Internal Medicine 08/17/18 01/06/19 Phillip Bañuelos NP [address] [facility] [address] [place] [address] PCP - General Nurse Practitioner 01/07/19 02/09/19 Jimmy Means DO [address] [facility] [address] [place] [address] PCP - General 02/10/19 07/04/23 Olvin Roberts MD [address] [facility] [facility] [address] [facility] [place] [address] PCP - General Family Practice 07/05/23 Nestor Oden MD [address] [facility] [facility] [address] [facility] [place] [address] Surgeon Vascular Surgery 10/28/22 documented as of this encounter
--- OUTSIDE RECORDS SUMMARY | 2024-11-06 12:09 | XMS_ITS | Encounter Summary ---
Author Organization [facility] ELMA Rodriguez [facility] Address [address] [place] [address] Care Team Providers Care Cuff Setter Lockstitch Name Role Phone Olvin Roberts MD Primary Care Provider [phone] Reason for Referral * CT Scan (Routine) - Open Specialty Diagnoses / Procedures Referred By Contac t Referred To Contact Diagnoses Malignant neoplasm of lung, unspecified laterality, unspecified part of lung (CMS/HCC) Procedures CT CHEST W CONTRAST Bertin Em MD [address] [place] [address] Phone: tel: fax: Referral ID Status Reason Start Date Expiration Date Visits Re quested Visits Authorized [id number] Open 11/06/2024 12/07/2025 1 1 Reason for Visit * Reason Comments Follow Up Cancer Encounter Details Date Type Department Care Team (Late st Contact Info) Description 11/06/2024 11:15 AM CDT Office Visit [facility] Oncology and Hematology - [place] [address] [facility] [address] [place] [address] Bertin Em MD [address] [place] [address] Malignant neoplasm of lung, unspecified laterality, unspecified part of lung (CMS/HCC) (Primary Dx) Social History Tobacco Use Types Packs/Day Years Used Date Smoking Tobacco: Former Cigarettes 1 55 0 09/21/1961 - 09/21/2016 Smokeless Tobacco: Never Tobacco Cessation:Counseling Given: Not Answered Alcohol Use Standard Drinks/Week Comments Yes 0 (1 standard drink = 0.6 oz pur e alcohol) Sex and Gender Information Value Date Recorded Sex Assigned at Not on file Legal Sex Male 1:49 PM PLATINUMSMITH Gender Identity Not on file Sexual Orientation Not on file documented as of this encounter Last Filed Vital Signs Vital Sign Reading Time Taken Comments Blood Pressure 105/89 11/06/2024 11:07 AM CDT Pulse 85 11/06/2024 11:07 AM CDT Temperature 36.1 C (97 F) 11/06/2024 11:07 AM CDT Respiratory Rate 15 11/06/2024 11:07 AM CDT Oxygen Saturation 93% 11/06/2024 11:07 AM CDT Inhaled Oxygen Concentration - - Weight 89.1 kg (196 lb 6.4 oz) 11/06/2024 11:07 AM CDT Height - - Body Mass Index 28.18 05/14/2024 12:17 PM CDT documented in this encounter Progress Notes * Bertin Em MD - 11/06/2024 11:28 AM CDT HEMATOLOGY / ONCOLOGY PROGRESS NOTE Patient Identification: Name: Wesley Keene Age: 79 y.o. 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 Right middle lobe resection in December 07, 2016 CURRENT TREATMENT Surveillance TREATMENT HISTORY Adjuvant chemotherapy with carboplatin and Alimta cycle 4 completed June 30, 2017 SUBJECTIVE Patient came into the office for follow-up visit. He has lost 8 pound weight. Denies any chest pain. He has been using 3 L of oxygen for most of the time. Denies any bleeding and bruising. No other new complaints. Review of system Constitutional: denies fevers, sweats, 8 pound weight loss without much tiredness and fatigue HEENT: denies sinus congestion, hearing or vision problems Respiratory: Complain of dyspnea on exertion and shortness of breath Cardiovascular: denies chest pain, exertional chest pressure/discomfort, nausea, syncope, denies any abdominal discomfort GI: denies constipation, diarrhea, dsyphagia, reflux symptoms, vomiting, melena : denies dysuria, frequency, incontinence, urgency Integumentary system: no lymphadenopathy, sweats, flushing Musculoskeletal: Lower back pain Neurological: denies blurry or disturbed vision, numbness/weakness, dizziness Skin: No lumps, bumps or rashes. 12 point review of system was reviewed Objective: Vital signs in last 24 hours: As per nursing note Exam: General appearance: alert, cooperative, no distress, appears stated age Head: normocephalic, without obvious abnormality, atraumatic Eyes: conjunctivae/corneas clear, EOM's intact Ears: normal external ear canals AU Nose: Nares normal. Septum midline. Mucosa normal. No drainage or sinus tenderness Throat: Lips, mucosa, and tongue normal. Teeth and gums normal Neck: supple, symmetrical, trachea midline. Lungs: Decreased breath sound bilaterally Heart: regular rate and rhythm, S1, S2 normal, no murmur, click, rub or gallop Abdomen: soft, non-tender. Bowel sounds normal. No masses, No organomegaly Extremities: extremities normal, atraumatic, no cyanosis or edema Skin: Skin color, texture, turgor normal. No rashes or lesions Lymph nodes: No lymphadenopathy Neuro: No obvious focal deficit Exam as above PATH LABS Labs from June 02 showed WBC 8.3 hemoglobin 15.5 platelet 213,000 creatinine 1.0. Labs from December 17 show WBC 8.1 hemoglobin 17.1 hematocrit 54.4 platelet 234,000 Labs from August 06 showed WBC 9.4 hemoglobin 15.2 platelet 218,000 creatinine 1.0 Labs from December 10 showed hematocrit 53.9 hemoglobin 16.8 creatinine 1.0 Labs from April 14 showed WBC 9.4 hemoglobin 17 hematocrit 53.8 platelet 201,000 creatinine 1.0 Labs from November 11 showed hematocrit 57.3 creatinine 1.0 Labs from February 08 showed WBC 8.1 hemoglobin 15.6 hematocrit 50.3 platelet 200,000 creatinine 1.0 Labs from May 11 showed WBC 9.6 hemoglobin 16.2 hematocrit 52.5 platelet 222,000 creatinine 1.0 Labs from October 07 showed WBC 5.3 hemoglobin 16.7 hematocrit 53.7 platelet 215,000 creatinine 1.0 Labs from April 06 showed WBC 11.2 hemoglobin 15.8 hematocrit 50.4 platelet 193,000 creatinine 0.9 Labs from October 12 showed WBC 11.5 hemoglobin 15.5 hematocrit 48.7 platelet 214,000. Lab from April 11 showed WBC 11.6 hemoglobin 15 platelet 208,000 creatinine 1.0 Labs from May 09 showed WBC 10.7 hemoglobin 14.5 platelet 227,000 creatinine 1.0 Assessment: Plan: T2BN0 stage IIA poorly differentiated right upper lobe lung cancer status post right upper lobe lobectomy on November 24 and right middle lobe resection on December 07, 2016. Patient completed 4 cycles of chemotherapy with carboplatin and Alimta in June 2017. Patient is clinically asymptomatic. CT scan chest abdomen and pelvis done on October 28 showed no evidence of metastatic disease. Stable 3.6 cm aortic aneurysm. Labs stable. I will see him back in [address] chest. Right adrenal gland myolipoma. Stable. He is asymptomatic. Secondary erythrocytosis. Resolved. Atrial fibrillation. Stable on Eliquis. 11/06/2024 Bertin Em MD documented in this encounter Plan of Treatment Upcoming Encounters Date Type Department Care Team (Late st Contact Info) Description 07/21/2025 10:15 AM PLATINUMSMITH Office Visit [facility] Oncology and Hematology [facility] [address] [facility] [address] [place] [address] Bertin Em MD [address] [facility] [address] [place] [address] Scheduled Orders Name Type Priority Associated Diagnoses Orde r Schedule CBC WITH DIFFERENTIAL Lab Stat Malignant neoplasm of lung, unspecified laterality, unspecified part of lung (CMS/HCC) Expected: 07/09/2025, Expires: 11/06/2025 COMPREHENSIVE METABOLIC PANEL Lab Stat Malignant neoplasm of lung, unspecified laterality, unspecified part of lung (CMS/HCC) Expected: 07/09/2025, Expires: 11/06/2025 CT CHEST W CONTRAST Imaging Routine Malignant neoplasm of lung, unspecified laterality, unspecified part of lung (CMS/HCC) Expected: 07/09/2025, Expires: 11/06/2025 documented as of this encounter Visit Diagnoses Diagnosis Malignant neoplasm of lung, unspecified laterality, unspecified part of lung (CMS/HCC)- Primary documented in this encounter Care Teams Cuff Setter Lockstitch Relationship Specialty Start Date [place] [address] PCP - General Family Practice 04/06/23 documented as of this encounter
--- OUTSIDE RECORDS SUMMARY | 2024-11-06 12:09 | XMS_ITS ---
Author Organization [facility] Address [address] [place] [address] Care Team Providers Care Matcher Operator Name Role Phone Nestor Oden MD Unavailable [phone] Olvin Roberts MD Primary Care Provider [phone] Active Problems Problem Noted Date Diagnosed Date [...] 10/11/2018 Assessment & Plan (10/22/2020 8:15 PM THEORETICAL PHYSICS TEACHER): Impression: Chronic atrial fibrillation on daily anticoagulation. Plan: Continue daily anticoagulation and metoprolol for rate control as directed by his primary care physician and deputy court clerk. Assessment & Plan (02/11/2019 12:01 AM CDT): [...] Yeager Primary Care Physician: Chace Stafford MD, Primary Care Pediatrician: Dr. Nicky Hernandez Cancer Staging Stage IIA [...] time. Will call primary care physician or parallel computing software engineer if breathing worsens or does not continue [...] 5. Annually after year 5. Dr. Em Primary Care Pediatrician: As needed or directed. Dr. Hernandez Chest [...] cholesterol management blood sugar control blood pressure [facility] health DEXA every 2 years calcium with [...] [facility] Serves Debbie Morales [address], [address] [place] [address] [facility] [address], [address] [place] [address] [facility] [address] [place] [address] [facility] [address], [address] [place] [address] [facility] [address] [facility], [address] [place] [address] [facility] Classes Please call [phone] to register. Each session is limited to 10 people. [facility] Conference Room First Floor [address] [place] [address] Debbie Noland Bld[address] Conference Room Third Floor [id number] [place] [address] [facility] [place] [address], [address] [place]. [address] Services: Acupuncture, Auriculotherapy, Chiropractic, Guided Imagery, Healing Touch, Massage Therapy, Nutritional Counseling, Physical Therapy (manual and traditional) and Reflexology [facility] [address], [address] [place]. [address] Services: Acupuncture, Auriculotherapy, Chiropractic, and Massage Therapy [facility] [place] [facility] [address] [facility], [address] [place] [address] Services: Acupuncture, Auriculotherapy, Guided Imagery, Healing Touch, Massage Therapy, Lymphedema, Physical Therapy and Reflexology [facility] [address] [facility], [address] [place]. [address] Services: Acupuncture and Chiropractic [facility] [address] [place] [address] [employer] [employer] [email or web address] Help line 24 hours, 7 days/week, phone [phone] [place] [address] Hours Monday - Monday 8:30 am- 5 pm Services include: ? information and referrals, educational materials ? transportation assistance ? nutritional supplements ? educational and support programs [employer] [employer] Guidelines on Nutrition and Physical [...] hot dogs), desserts, high-fat dairy products and [place] fries. Most of the studies about cancer [...] surveillance Assessment & Plan (10/22/2020 8:14 PM THEORETICAL PHYSICS TEACHER): Impression: Patient continues do well status post endovascular repair of his infrarenal abdominal aortic aneurysm. Surveillance CTA revealed widely patent endo repair with no evidence of endoleak or stent migration with a stable eagle aneurysm sac. Plan: Recommend ongoing risk factor modifications and follow-up in 1 year for re-evaluation and repeat CTA abdomen and pelvis surveillance to evaluate his endovascular AAA repair. Benign hypertension 09/30/2016 Assessment & Plan (10/22/2020 8:14 PM THEORETICAL PHYSICS TEACHER): .Impression: Stable chronic hypertension. Plan: Medications reviewed [...]
--- OUTSIDE RECORDS SUMMARY | 2024-11-06 12:09 | XMS_ITS | Encounter Summary ---
Author Organization [facility] Address [address] [place] [address] Care Team Providers Care Finish Rolls Operator Name Role Phone Olvin Roberts MD Primary Care Provider [phone] Reason for Visit * Reason Comments Medication Refill Encounter Details Date Type Department Care Team (Late Contact Info) Description 10/31/2018 Refill [facility] Oncology and Hematology [facility] [address] [place] [address] Bertin Em MD [address] [place] [address] Social History Tobacco Use Types Packs/Day Years Used Date Smoking Tobacco: Former Cigarettes 1 55 0 09/21/1961 - 09/21/2016 Smokeless Tobacco: Never Alcohol Use Standard Drinks/Week Comments Yes 0 (1 standard drink = 0.6 oz pur e alcohol) Sex and Gender Information Value Date Recorded Sex Assigned at Not on file Legal Sex Male 1:49 PM PHYSICAL SCIENCE TECHNICIAN Gender Identity Not on file Sexual Orientation Not on file documented as of this encounter Plan of Treatment Upcoming Encounters Date Type Department Care Team (Late Contact Info) Description 07/21/2025 10:15 AM PHYSICAL SCIENCE TECHNICIAN Office Visit [facility] Oncology and Hematology [facility] [address] [place] [address] Bertin Em MD [address] [place] [address] documented as of this encounter Visit Diagnoses Not on filedocumented in this encounter Care Teams Finish Rolls Operator Relationship Specialty Start Date End Date Olvin Roberts MD [address] [place] [address] PCP - General Family Practice 04/06/23 documented as of this encounter
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
--- OUTSIDE RECORDS SUMMARY | 2024-11-06 12:09 | XMS_ITS | Encounter Summary ---
Author Organization [facility] Facility Care Team Providers Care Presentation Designer Name Role Phone Chace Stafford MD Primary Care Provider [phone] Phillip Bañuelos NP Primary Care Provider [phone] Jimmy Means DO Primary Care Provider [phone] Nestor Oden MD Unavailable [phone] Olvin Roberts MD Primary Care Provider [phone] Encounter Details Date Type Department Care Team (Latest Contact Info) Description 08/30/2017 Orders Only [facility] CLINCONV Provider, MD Aydin [address] [place] [address] Social History Tobacco Use Types Packs/Day Years Used Date Smoking Tobacco: Never Assessed Sex and Gender Information Value Date Recorded Sex Assigned at Not on file Legal Sex Male 11:00 AM FINANCIAL WRITER Gender Identity Not on file Sexual Orientation Not on file documented as of this encounter Plan of Treatment Not on file documented as of this encounter Procedures Procedure Name Priority Date/Time Associated Diagnosis Comments SCAN - LABS 08/30/2017 12:00 AM FINANCIAL WRITER documented in this encounter Results * SCAN - LABS (08/30/2017 12:00 AM FINANCIAL WRITER) Narrative 08/30/2017 12:00 AM FINANCIAL WRITER Ordered by an unspecified provider. us Historical Provider Final Res ult documented in this encounter Visit Diagnoses Not on filedocumented in this encounter Care Teams Presentation Designer Relationship Specialty Start Date End Date Chace Stafford MD [address] [place] [address] PCP - General Internal Medicine 08/17/18 01/06/19 Phillip Bañuelos NP [address] [facility] [address] [place] [address] PCP - General Nurse Practitioner 01/07/19 02/09/19 Jimmy Means DO [address] [facility] [address] [place] [address] PCP - General 02/10/19 07/04/23 Olvin Roberts MD [address] [facility] [address] [facility] [place] [address] PCP - General Family Practice 07/05/23 Nestor Oden MD [address] [facility] [address] [facility] [place] [address] Surgeon Vascular Surgery 10/28/22 documented as of this encounter
== END 2024-11-06 10:36 | disposition home or self-care (01) ==
LOC: ANHLAB 10:36
PROVIDERS: PCP Nurse Practitioner; Visit Provider Internal Medicine Hematology & Oncology
DX: C34.90 Malignant neoplasm of unspecified part of unspecified bronchus or lung (principal)
CPT/HCPCS: 36415; 80047; 80053; 85025

== ENCOUNTER 2025-07-09 10:20 | Outpatient (CLI) | payer MEDICARE, SELFPAY ==
[2025-07-09 10:36] LABS: Hematocrit 45.6 % (42.0-52.0); Hemoglobin 14.3 g/dL (14.0-18.0); Immature Granulocyte Percent A 0.2 % (0-0.5); Lymphocytes Absolute Auto 0.68 K/mm3 (0.9-3.2); Mean Corpuscular HGB Conc 31.4 g/dl (32-36); Mean Corpuscular Hemoglobin 31.0 pg (26-34); Mean Corpuscular Volume 98.7 fl (80-100); Nucleated Red Blood Cells Absolute Auto 0.000 K/mm3 (0.0-0.012); Nucleated Red Blood Cells Perc 0.0 % (0.0-0.2); Platelet Count Result 214 k/mm3 (150-375); Red Blood Count 4.62 M/mm3 (4.6-6.20); White Blood Count 8.8 K/mm3 (4.5-10.0)
[2025-07-09 11:00] LABS: Alanine Aminotransferase 14 U/L (6-50); Albumin Level 3.7 g/dL (3.5-5.1); Alkaline Phosphatase 87 U/L (38-126); Anion Gap 5 mmol/L (4-12); Aspartate Amino Transferase 23 U/L (17-59); Bilirubin,Total 1.0 mg/dL (0.2-1.3); Blood Urea Nitrogen 13 mg/dL (9-20); Calcium 8.4 mg/dL (8.4-10.2); Carbon Dioxide 35 mmol/L (22-30); Chloride 95 mmol/L (98-107); Estimated Glomerular Filt Rate > 60; Glucose 93 mg/dL (65-110); Potassium 3.8 mmol/L (3.4-5.0); Sodium 135 mmol/L (137-145); Total Protein 7.3 g/dL (6.3-8.2)
== END 2025-07-09 10:21 | disposition home or self-care (01) ==
LOC: ANHLAB 10:22
PROVIDERS: PCP Nurse Practitioner; Visit Provider Internal Medicine Hematology & Oncology
DX: C34.90 Malignant neoplasm of unspecified part of unspecified bronchus or lung (principal)
CPT/HCPCS: 36415; 80053; 85025

== ENCOUNTER 2025-07-11 09:14 | Outpatient (CLI) | payer MEDICARE, SELFPAY ==
--- NOTE | ~2025-07-11 | CT_ITS ---
EXAMINATION:CT diagnostic chest w con DATE: 07/11/2025 10:01 INDICATION: Malignancy of lung TECHNIQUE: Computed tomography (CT) of the chest was performed with intravenous contrast. The dose-length product (DLP) was 342.96 mGy-cm. COMPARISON: October 28, 2024 FINDINGS: Surgical changes in the right lung with moderately extensive fibrosing appearing changes stable to the previous exam. Mild cardiomegaly with left atrial enlargement unchanged in appearance. The left atrium measures 8.5 x 5.3 cm in transverse by AP dimension. No thoracic aortic aneurysm or dissection. No large pulmonary emboli. No suspicious lymphadenopathy identified. Stable appearance mild nodular changes of the right lobe of the thyroid. Degenerative changes throughout the thoracic spine which otherwise appears intact. No suspicious bony lesions. No acute process seen in the visualized portions of the upper abdomen or extrathoracic soft tissues. 8.2 cm mass in the right adrenal gland with fatty components not grossly changed. Left renal cyst. IMPRESSION: Stable chest CT. Reviewed, dictated and finalized at location A. ORATE DEVELOPMENT OFFICER IMPRESSION: Stable chest CT.
--- OUTSIDE RECORDS SUMMARY | 2025-07-11 09:17 | XMS_ITS | Encounter Summary ---
Author Organization [email or web address] Address [address] [place] [address] Care Team Providers Care Pct Name Role Phone Olvin Roberts MD Primary Care Provider [phone] Encounter Details Date Type Department Care Team (Late Contact Info) Description 07/10/2025 Orders Only [facility] Oncology and Hematology [facility] [address] [place] [address] Bertin Em MD [facility] [address] [place] [address] Social History Tobacco Use Types Packs/Day Years Used Date Smoking Tobacco: Former Cigarettes 1 55 0 09/21/1961 - 09/21/2016 Smokeless Tobacco: Never Alcohol Use Standard Drinks/Week Comments Yes 0 (1 standard drink = 0.6 oz pur e alcohol) Sex and Gender Information Value Date Recorded Sex Assigned at Not on file Legal Sex Male 1:49 PM SIGN PAINTER HELPER Gender Identity Not on file Sexual Orientation Not on file documented as of this encounter Plan of Treatment Upcoming Encounters Date Type Department Care Team (Late Contact Info) Description 07/21/2025 10:15 AM SIGN PAINTER HELPER Office Visit [facility] Oncology and Hematology - [place] [address] [place] [address] Bertin Em MD [address] [place] [address] documented as of this encounter Procedures Procedure Name Priority Date/Time Associated Diagnosis Comments COMPREHENSIVE METABOLIC PANEL Routine 07/09/2025 12:52 PM SIGN PAINTER HELPER documented in this encounter Results * COMPREHENSIVE METABOLIC PANEL (07/09/2025 12:52 PM SIGN PAINTER HELPER) Blood Bertin Em MD CHEMISTRY ORDERABLES Final Resu lt documented in this encounter Visit Diagnoses Not on filedocumented in this encounter Care Teams Pct Relationship Specialty Start Date End Date Olvin Roberts MD [address] [place] [address] PCP - General Family Practice 04/06/23 documented as of this encounter
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
--- OUTSIDE RECORDS SUMMARY | 2025-07-11 09:17 | XMS_ITS | Encounter Summary ---
Author Organization [facility] Facility Care Team Providers Care Billing Associate Name Role Phone Chace Stafford MD Primary Care Provider [phone] Phillip Bañuelos NP Primary Care Provider [phone] Jimmy Means DO Primary Care Provider [phone] Nestor Oden MD Unavailable [phone] Olvin Roberts MD Primary Care Provider [phone] Jimmy Means DO Primary Care Provider [phone] Encounter Details Date Type Department Care Team (Latest Contact Info) Description 10/03/2016 Orders Only [facility] CLINCONV ProviderAydin MD [address] [place] [address] Social History Tobacco Use Types Packs/Day Years Used Date Smoking Tobacco: Never Assessed Sex and Gender Information Value Date Recorded Sex Assigned at Not on file Legal Sex Male 11:00 AM JAVA TECH Gender Identity Not on file Sexual Orientation Not on file documented as of this encounter Functional Status documented as of this encounter Plan of Treatment Not on file documented as of this encounter Procedures Procedure Name Priority Date/Time Associated Diagnosis Comments PROCEDURE - RESULT 10/03/2016 12 :00 AM JAVA TECH PROCEDURE - RESULT 09/29/2016 12 :00 AM JAVA TECH documented in this encounter Results * PROCEDURE - RESULT (10/03/2016 12:00 AM JAVA TECH) Narrative 10/03/2016 12:00 AM JAVA TECH Ordered by an unspecified provider. us Historical Provider MD Final Res ult * PROCEDURE - RESULT (09/29/2016 12:00 AM JAVA TECH) Narrative 09/29/2016 12:00 AM JAVA TECH Ordered by an unspecified provider. us Historical Provider Final Res ult documented in this encounter Visit Diagnoses Not on filedocumented in this encounter Care Teams Billing Associate Relationship Specialty Start Date End Date Chace Stafford MD PCP - General Internal Medicine 08/17/18 01/06/19 Phillip Bañuelos NP PCP - General Nurse Practitioner 01/07/19 02/09/19 Jimmy Means DO PCP - General 02/10/19 07/04/23 Olvin Roberts MD [address] [facility] [facility] [place] [address] PCP - General Family Practice 07/05/23 12/04/24 Jimmy Means DO [address] [facility] [place] [address] PCP - General Internal Medicine 12/05/24 Nestor Oden MD [address] [facility] [place] [address] Surgeon Vascular Surgery 10/28/22 documented as of this encounter
--- OUTSIDE RECORDS SUMMARY | 2025-07-11 09:17 | XMS_ITS | Encounter Summary ---
Author Organization [facility] Facility Care Team Providers Care Day Light Relief Operator Name Role Phone Chace Stafford MD Primary Care Provider [phone] Phillip Bañuelos NP Primary Care Provider [phone] Jimmy Means DO Primary Care Provider [phone] Nestor Oden MD Unavailable [phone] Olvin Roberts MD Primary Care Provider [phone] Jimmy Means DO Primary Care Provider [phone] Encounter Details Date Type Department Care Team (Latest Contact Info) Description 10/11/2016 Orders Only [facility] CLINCONV ProviderAydin MD [address] [place] [address] Social History Tobacco Use Types Packs/Day Years Used Date Smoking Tobacco: Never Assessed Sex and Gender Information Value Date Recorded Sex Assigned at Not on file Legal Sex Male 11:00 AM EMPLOYEE BENEFITS SPECIALIST Gender Identity Not on file Sexual Orientation Not on file documented as of this encounter Plan of Treatment Not on file documented as of this encounter Procedures Procedure Name Priority Date/Time Associated Diagnosis Comments PROCEDURE - RESULT 09/28/2016 12 :00 AM EMPLOYEE BENEFITS SPECIALIST documented in this encounter Results * PROCEDURE - RESULT (09/28/2016 12:00 AM EMPLOYEE BENEFITS SPECIALIST) Narrative 09/28/2016 12:00 AM EMPLOYEE BENEFITS SPECIALIST Ordered by an unspecified provider. Historical Provider Final Res ult documented in this encounter Visit Diagnoses Not on filedocumented in this encounter Care Teams Day Light Relief Operator Relationship Specialty Start Date End Date Cahce Stafford MD PCP - General Internal Medicine 08/17/18 01/06/19 Phillip Bañuelos REDUCING SALON ATTENDANT PCP - General Nurse Practitioner 01/07/19 02/09/19 Jimmy Means DO PCP - General 02/10/19 07/04/23 Olvin Roberts MD [address] [facility] [address] [facility] [place] [address] PCP - General Family Practice 07/05/23 12/04/24 Jimmy Means DO [address] [facility] [address] [facility] [place] [address] PCP - General Internal Medicine 12/05/24 Nestor Oden MD [address] [facility] [address] [address] Surgeon Vascular Surgery 10/28/22 documented as of this encounter
--- OUTSIDE RECORDS SUMMARY | 2025-07-11 09:17 | XMS_ITS | Encounter Summary ---
Author Organization [facility] Address [address] [place] [address] Care Team Providers Care Proof Coins Inspector Name Role Phone Olvin Roberts MD Primary Care Provider [phone] Reason for Visit * Reason Comments Medication Refill Encounter Details Date Type Department Care Team (Late Contact Info) Description 10/31/2018 Refill [facility] Oncology and Hematology [place] [address] [place] [address] Bertin Em MD [address] [place] [address] Social History Tobacco Use Types Packs/Day Years Used Date Smoking Tobacco: Former Cigarettes 1 55 0 09/21/1961 - 09/21/2016 Smokeless Tobacco: Never Alcohol Use Standard Drinks/Week Comments Yes 0 (1 standard drink = 0.6 oz pur e alcohol) Sex and Gender Information Value Date Recorded Sex Assigned at Not on file Legal Sex Male 1:49 PM PHYSICAL LABORATORY ASSISTANT Gender Identity Not on file Sexual Orientation Not on file documented as of this encounter Plan of Treatment Upcoming Encounters Date Type Department Care Team (Late Contact Info) Description 07/21/2025 10:15 AM PHYSICAL LABORATORY ASSISTANT Office Visit [facility] Oncology and Hematology [place] [address] [place] [address] Bertin Em MD [address] [place] [address] documented as of this encounter Visit Diagnoses Not on filedocumented in this encounter Care Teams Proof Coins Inspector Relationship Specialty Start Date End Date Olvin Roberts MD [address] [place] [address] PCP - General Family Practice 04/06/23 documented as of this encounter
--- OUTSIDE RECORDS SUMMARY | 2025-07-11 09:17 | XMS_ITS ---
Author Organization [facility] Address [address] [place] [address] Care Team Providers Care Dressing Room Attendant Name Role Phone Nestor Oden MD Unavailable [phone] Jimmy Means DO Primary Care Provider [phone] Active Problems Problem Noted Date Diagnosed Date [...] 10/11/2018 Assessment & Plan (10/22/2020 8:15 PM PRODUCT DESIGN SPECIALIST): Impression: Chronic atrial fibrillation on daily anticoagulation. Plan: Continue daily anticoagulation and metoprolol for rate control as directed by his primary care physician and clerk general office. Assessment & Plan (02/11/2019 12:01 AM CDT): [...] Yeager Primary Care Physician: Chace Stafford MD, Loom Control Chain Builder: Dr. Nicky Hernandez Cancer Staging Stage IIA [...] time. Will call primary care physician or batching operator if breathing worsens or does not continue [...] 5. Annually after year 5. Dr. Em Loom Control Chain Builder: As needed or directed. Dr. Hernandez Chest [...] cholesterol management blood sugar control blood pressure controlBullhead [facility] Hospitale health DEXA every 2 years calcium [...] ST[facility] Program Cancer Rehabilitation Serves Debbie Morales [address], [address] [place] [address] Chelan Norman [facility] [address], [address] [place] [address] [facility] [address] [place] [address] [facility] [address], [address] [place] [address] [facility] [address] [facility], [address] [place] [address] [facility] Survivorship Training Classes Please call [phone] to register. Each session is limited to 10 people. Phillip Norman [facility] Conference Room First Floor [address] [place] [address] Debbie Noland Bld[address]. Conference Room Third Floor [address] [place] [address] [facility] Services [place] [address] [facility], [address] [place]. [address] Services: Acupuncture, Auriculotherapy, Chiropractic, Guided Imagery, Healing Touch, Massage Therapy, Nutritional Counseling, Physical Therapy (manual and traditional) and Reflexology [facility] [place] [address], [address] [place]. [address] Services: Acupuncture, Auriculotherapy, Chiropractic, and Massage Therapy [facility] and Therapy [facility] Cancer [place] Option [address] [facility], [address] [place] [address] Services: Acupuncture, Auriculotherapy, Guided Imagery, Healing Touch, Massage Therapy, Lymphedema, Physical Therapy and Reflexology [facility] [address] [facility], [address] [place]. [address] Services: Acupuncture and Chiropractic [facility] [address] [place] [address] [employer] [email or web address] Help line 24 hours, 7 days/week, phone [phone] [address] [place] [address] Hours Monday - Monday 8:30 am- 5 pm Services include: ? information and referrals, educational materials ? transportation assistance ? nutritional supplements ? educational and support programs [employer] Guidelines on Nutrition and Physical [...] hot dogs), desserts, high-fat dairy products and Guyanese fries. Most of the studies about cancer [...] (AAA) without rupture 11/08/2016 Assessment & Plan (12/05/2024 1:59 PM CDT): EVAR 2017 continues to do well. Current duplex measures the [place] aneurysm at 3.2 cm with no endoleak. No claudication symptoms. Continue risk factor modifications continue Eliquis and statin therapy follow-up in 1 year for routine surveillance with aortoiliac duplex. 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 Surveillance CTA revealed widely patent endo repair with no evidence of endoleak or stent migration with a stable [place] aneurysm sac. Plan: Recommend ongoing risk factor modifications and follow-up in 1 year for re-evaluation and repeat CTA abdomen and pelvis surveillance to evaluate his endovascular AAA repair. Benign hypertension 09/30/2016 Assessment & Plan (10/22/2020 8:14 PM PRODUCT DESIGN SPECIALIST): .Impression: Stable chronic hypertension. Plan: Medications reviewed [...]
--- OUTSIDE RECORDS SUMMARY | 2025-07-11 09:17 | XMS_ITS | Encounter Summary ---
Author Organization [facility] Facility Care Team Providers Care Electrical Assembly Technician Name Role Phone Chace Stafford MD Primary Care Provider [phone] Phillip Bañuelos NP Primary Care Provider [phone] Jimmy [place] DO Primary Care Provider [phone] Nestor Oden MD Unavailable [phone] Olvin Roberts MD Primary Care Provider [phone] Jimmy [place] DO Primary Care Provider [phone] Encounter Details Date Type Department Care Team (Latest Contact Info) Description 10/18/2016 Orders Only [facility] CLINCON[facility] ProviderAydin MD [address] [place] [address] Social History Tobacco Use Types Packs/Day Years Used Date Smoking Tobacco: Never Assessed Sex and Gender Information Value Date Recorded Sex Assigned at Not on file Legal Sex Male 11:00 AM TUTOR COORDINATOR Gender Identity Not on file Sexual Orientation Not on file documented as of this encounter Functional Status documented as of this encounter Plan of Treatment Not on file documented as of this encounter Procedures Procedure Name Priority Date/Time Associated Diagnosis Comments PROCEDURE - RESULT 10/05/2016 12 :00 AM TUTOR COORDINATOR documented in this encounter Results * PROCEDURE - RESULT (10/05/2016 12:00 AM TUTOR COORDINATOR) Narrative 10/05/2016 12:00 AM TUTOR COORDINATOR Ordered by an unspecified provider. Historical Provider Final Res ult documented in this encounter Visit Diagnoses Not on filedocumented in this encounter Care Teams Electrical Assembly Technician Relationship Specialty Start Date End Date Chace Stafford MD PCP - General Internal Medicine 08/17/18 01/06/19 Phillip Bañuelos NP PCP - General Nurse Practitioner 01/07/19 02/09/19 Jimmy [place] DO PCP - General 02/10/19 07/04/23 Olvin Roberts MD [address] [facility] [place] [address] PCP - General Family Practice 07/05/23 12/04/24 Jimmy [place] DO [address] ELI[address] UGALDE [facility] [place] [address] PCP - General Internal Medicine 12/05/24 Nestor Oden MD [address] ELI[address]GAL[address] [facility] [place] [address] Surgeon Vascular Surgery 10/28/22 documented as of this encounter
--- OUTSIDE RECORDS SUMMARY | 2025-07-11 09:17 | XMS_ITS | Encounter Summary ---
Author Organization [facility] Facility Care Team Providers Care Stock Drier Tender Name Role Phone Chace Stafford MD Primary Care Provider [phone] Phillip Bañuelos NP Primary Care Provider [phone] Jimmy [place] DO Primary Care Provider [phone] Nestor Oden MD Unavailable [phone] Olvin Roberts MD Primary Care Provider [phone] Jimmy [place] DO Primary Care Provider [phone] Encounter Details Date Type Department Care Team (Latest Contact Info) Description 08/30/2017 Orders Only [facility] CLINCONV ProviderAydin MD [address] [place] [address] Social History Tobacco Use Types Packs/Day Years Used Date Smoking Tobacco: Never Assessed Sex and Gender Information Value Date Recorded Sex Assigned at Not on file Legal Sex Male 11:00 AM LITHOGRAPHIC PRESS FEEDER Gender Identity Not on file Sexual Orientation Not on file documented as of this encounter Plan of Treatment Not on file documented as of this encounter Procedures Procedure Name Priority Date/Time Associated Diagnosis Comments SCAN - LABS 08/30/2017 12:00 AM LITHOGRAPHIC PRESS FEEDER documented in this encounter Results * SCAN - LABS (08/30/2017 12:00 AM LITHOGRAPHIC PRESS FEEDER) Narrative 08/30/2017 12:00 AM LITHOGRAPHIC PRESS FEEDER Ordered by an unspecified provider. Historical Provider Final Res ult documented in this encounter Visit Diagnoses Not on filedocumented in this encounter Care Teams Stock Drier Tender Relationship Specialty Start Date End Date Chace Stafford MD PCP - General Internal Medicine 08/17/18 01/06/19 Phillip Bañuelos GRANTS DIRECTOR PCP - General Nurse Practitioner 01/07/19 02/09/19 Jimmy [place] DO PCP - General 02/10/19 07/04/23 Olvin Roberts MD [address] EL[address] [place] [place] [address] PCP - General Family Practice 07/05/23 12/04/24 Jimmy [place] DO [address] [facility] [place] [address] PCP - General Internal Medicine 12/05/24 Nestor Oden MD [address] [place] [address] Surgeon Vascular Surgery 10/28/22 documented as of this encounter
--- OUTSIDE RECORDS SUMMARY | 2025-07-11 09:17 | XMS_ITS | Encounter Summary ---
Author Organization [facility] Healthcare Address [address] [place] [address] Care Team Providers Care Account Services Coordinator Name Role Phone Jimmy [place] DO Primary Care Provider [phone] Nestor Oden MD Unavailable [phone] Olvin Roberts MD Primary Care Provider [phone] Jimmy [place] DO Primary Care Provider [phone] Encounter Details Date Type Department Care Team (Late st Contact Info) Description 02/01/2022 Orders Only [facility] Health Information Management [address] [place] [address] Scanning, Provider Social History Tobacco Use Types Packs/Day Years Used Date Smoking Tobacco: Former Cigarettes Q uit: 2017 Smokeless Tobacco: Never Alcohol Use Standard Drinks/Week Comments Yes 0 (1 standard drink = 0.6 oz pur e alcohol) 2-3 per month Sex and Gender Information Value Date Recorded Sex Assigned at Not on file Legal Sex Male 11:00 AM FILTER MACHINE OPERATOR Gender Identity Not on file Sexual Orientation Not on file documented as of this encounter Plan of Treatment Not on file documented as of this encounter Procedures Procedure Name Priority Date/Time Associated Diagnosis Comments SCAN - LABS 02/01/2022 documented in this encounter Results * SCAN - LABS (02/01/2022) us Provider Scanning Final Result documented in this encounter Visit Diagnoses Not on filedocumented in this encounter Care Teams Account Services Coordinator Relationship Specialty Start Date End Date Jimmy [place] DO PCP - General 02/10/19 07/04/23 Olvin Roberts MD [address] [place] [address] PCP - General Family Practice 07/05/23 12/04/24 Jimmy [place] DO [address] [place] [address] PCP - General Internal Medicine 12/05/24 Nestor Oden MD [address] [place] [address] Surgeon Vascular Surgery 10/28/22 documented as of this encounter
--- OUTSIDE RECORDS SUMMARY | 2025-07-11 09:17 | XMS_ITS ---
Author Organization 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 Mailed survivorship asco answers, and care plan with included breathing exercises. Lung Cancer Survivorship Care Plan Provided by [facility] on 12/15/17 General Information Patient Name: Wesley Keene Patient : 1945 Care Team Medical Oncologist: Dr. Bertin Em Thoracic Surgeon: Dr. Manish Yeager Primary Care Physician: Chace Stafford MD, Scrap Iron Cutter: Dr. Nicky Hernandez Cancer Staging Stage IIA [...] time. Will call primary care physician or sprayer hand if breathing worsens or does not continue [...] 5. Annually after year 5. Dr. Em Scrap Iron Cutter: As needed or directed. Dr. Hernandez Chest [...] cholesterol management blood sugar control blood pressure controlBone health DEXA every 2 years calcium with vitamin D weight bearing exercise Call your doctor if you have any of these signs and symptoms: cough, dyspnea on exertion and shortness of breath Additional Resources: Patients may have many varied questions and concerns after their cancer treatment ends. A list of local resources is provided below to assist you. [place] [facility] Cancer Rehabilitation Serves Debbie Morales [id number] [place] [address]., [address] [place] [address] Sal[place] Norman [facility] [address] [place] [address] [facility] [place] [address] [place] [address] [facility] [address], [address] [place] [address] [facility] - [place] [address] [place] [address], [address] [place] [address] [place] Survivorship Training Classes Please call [phone] to register. Each session is limited to 10 people. [facility] Conference Room First Floor [address] [place] [address] [facility]. Conference Room Third Floor [id number] [place] [address]. [place] [address] [facility] Medicine & Healing Therapies [facility] Integrative Medicine and Therapy Services [place] [address] [facility], [address] [place]. [address] Services: Acupuncture, Auriculotherapy, Chiropractic, Guided Imagery, Healing Touch, Massage Therapy, Nutritional Counseling, Physical Therapy (manual and traditional) and Reflexology [facility] [address] [place]. [address] Services: Acupuncture, Auriculotherapy, Chiropractic, and Massage Therapy [facility] Integrative Medicine and Therapy Services Cancer [place] Option [address] [facility], [address] [place] [address] Services: Acupuncture, Auriculotherapy, Guided Imagery, Healing Touch, Massage Therapy, Lymphedema, Physical Therapy and Reflexology [facility] [place] [address] [facility], [address] [place]. [address] Services: Acupuncture and Chiropractic [facility] [address] [place] [address]. [address] [place] [address] [employer] [email or web address] Help line 24 hours, 7 days/week, phone [phone] [place] [address] Hours Monday - Monday 8:30 am- 5 pm Services include: information and referrals, educational materials transportation assistance nutritional supplements educational and support programs [employer] [...] hot dogs), desserts, high-fat dairy products and Ethiopian fries. Most of the studies about cancer [...]
--- OUTSIDE RECORDS SUMMARY | 2025-07-11 09:17 | XMS_ITS | Clinical Summary ---
Author Organization [facility] Address [address] [place] [address] Care Team Providers Care Supervisor Coal Handling Name Role Phone Olvin Roberts MD Primary Care Provider [phone] Allergies No known active allergies Medications pravastatin [...] Puffs by inhalation 2 times daily. Active Active Problems Problem Noted Date Diagnosed [...] Yeager Primary Care Physician: Chace Stafford MD, Medical Insurance Claims Processor: Dr. Nicky Hernandez Cancer Staging Stage IIA [...] time. Will call primary care physician or senior procurement manager if breathing worsens or does not continue [...] 5. Annually after year 5. Dr. Em Medical Insurance Claims Processor: As needed or directed. Dr. Hernandez Chest [...] blood sugar control blood pressure [facility] health DEXA every 2 years calcium with [...] [facility] Program Cancer Rehabilitation Serves Debbie Morales [address] [place] [address] [facility] Cancer [place] [address] [place] [address] [facility] [address] [place] [address] [facility] - [facility] [address] [facility], [address] [place] [address] [facility] Therapy Services - [place] [address] [facility], [address] [place] [address] [place] Survivorship Training Classes Please call [phone] to register. Each session is limited to 10 people. [facility] Conference Room First Floor [address] [place] [address] [facility]. Conference Room Third Floor [address] [place] [address] [facility] Integrative Medicine & Healing Therapies [facility] Integrative Medicine and Therapy [facility] [place] [address] [facility], [address] [place]. [address] Services: Acupuncture, Auriculotherapy, Chiropractic, Guided Imagery, Healing Touch, Massage Therapy, Nutritional Counseling, Physical Therapy (manual and traditional) and Reflexology [facility] [address], [address] [place]. [address] Services: Acupuncture, Auriculotherapy, Chiropractic, and Massage Therapy [facility] Integrative Medicine and Therapy [facility] Cancer [place] Option 1 [address] [facility], [address] [place] [address] Services: Acupuncture, Auriculotherapy, Guided Imagery, Healing Touch, Massage Therapy, Lymphedema, Physical Therapy and Reflexology [facility] [address] [facility], [address] [place]. [address] Services: Acupuncture and Chiropractic [facility] [address] [facility] [address] [place] [address] [employer] [email or web address] Help line 24 hours, 7 days/week, phone [phone] [place] [address] Hours Agu[place] - Monday 8:30 am- 5 pm Services include: information and referrals, educational materials transportation assistance nutritional supplements educational and support programs [employer] Guidelines on Nutrition and Physical [...] hot dogs), desserts, high-fat dairy products and Turkmen fries. Most of the studies about cancer [...] Encounters Date Type Department Care Team Description 07/10/2025 Orders Only [facility] Oncology and Hematology - [place] [address] [place] [address] Bertin Em MD from Last 3 Months Family History Relation [...] on file Legal Sex Male 1:49 PM HYDRAULIC BOOM OPERATOR Gender Identity Not on file Sexual [...] 11:07 AM CDT Height 177.8 cm (5' 10) 05/14/2024 12:17 PM CDT Body Mass Index 28.18 05/14/2024 12:17 PM CDT Plan of Treatment Upcoming Encounters Date Type Department Care Team (Late st Contact Info) Description 07/21/2025 10:15 AM HYDRAULIC BOOM OPERATOR Office Visit [facility] Oncology and Hematology - [place] [address] [place] [address] Bertin Em MD [address] [facility] [address] [place] [address] Health Maintenance Due Date Last Done Comments PNEUMOCOCCAL VACCINE 50+ YEA RS (1 of 2 - PCV) 1964 ZOSTER VACCINE (1 of 2) 1995 RSV VACCINE (60+ or ) (1 - 1-dose 75+ series) 2020 INFLUENZA VACCINE (#1) 2025 0, 06/23/2018, 05/28/2017 DTAP/TDAP/TD VACCINES (2 - T d or Tdap) 02/09/2029 02/09/2019 Medical Devices Implanted Type Area Garment Parts Cutter Hand Device Identifier Shelf Expiration Date Model / Serial / Lot Adh Bioglue 10ml [id number] - [id number] Implanted:Qt y: 1 on 12/07/2016 by Manish Yeager MD at [facility] Biological Right: Chest [employer] 03/15/2017 [id number] / / [id number] [place] Ptfe Thck [id number] - [id number] Implanted:Qt y: 1 on 12/07/2016 by Manish Yeager MD at [facility] Graft Right: Chest [employer] 02/17/2018 [id number] / / [id number] Sealant Tisseel 10ml [id number] - [id number] Implanted:Qt y: 1 on 11/24/2016 by Manish Yeager MD at [facility] Sealant Right: Chest [employer] [id number] 04/20/2018 [id number] / [id number] / [id number] Sealant Tisseel 10ml [id number] - [id number] Implanted:Qt y: 1 on 12/07/2016 by Manish Yeager MD at [facility] Sealant Right: Chest [employer] 04/20/2018 [id number] / / [id number] Rt Knee Wire Procedures Procedure Name Priority Date/Time Associated Diagnosis Comments COMPREHENSIVE METABOLIC PANEL Routine 07/09/2025 12:52 PM HYDRAULIC BOOM OPERATOR from Last 3 Months Results * COMPREHENSIVE METABOLIC PANEL (07/09/2025 12:52 PM HYDRAULIC BOOM OPERATOR) Blood Bertin Em MD CHEMISTRY ORDERABLES Final Resu lt from Last 3 Months Insurance MEDICARE PART A AND B [facility] SUPP MEDICARE PART A AND B BS SUPP Advance Directives For more information, please contact: [phone] * Full Code (Latest Code Status on [...] 3:53 PM 12/05/2016 2:25 PM Care Teams Supervisor Coal Handling Relationship Specialty Start Date End Date Olvin Roberts MD [address] [place] [address] PCP - General Family Practice 04/06/23
--- OUTSIDE RECORDS SUMMARY | 2025-07-11 09:17 | XMS_ITS | Encounter Summary ---
Author Organization [facility] Facility Care Team Providers Care Customer Support Engineer Name Role Phone Chace Stafford MD Primary Care Provider [phone] Phillip Bañuelos NP Primary Care Provider [phone] Jimmy Means DO Primary Care Provider [phone] Nestor Oden MD Unavailable [phone] Olvin Roberts MD Primary Care Provider [phone] Jimmy Means DO Primary Care Provider [phone] Encounter Details Date Type Department Care Team (Latest Contact Info) Description 02/28/2018 Orders Only [facility] CLINCONV ProviderAydin MD [address] [place] [address] Social History Tobacco Use Types Packs/Day Years Used Date Smoking Tobacco: Never Assessed Sex and Gender Information Value Date Recorded Sex Assigned at Not on file Legal 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 Gender Identity Not on file Sexual Orientation [...] on filedocumented in this encounter Care Teams Customer Support Engineer Relationship Specialty Start Date End Date Chace Stafford MD PCP - General Internal Medicine 08/17/18 01/06/19 Phillip Bañuelos NP PCP - General Nurse Practitioner 01/07/19 02/09/19 Jimmy Means DO PCP - General 02/10/19 07/04/23 lOvin Roberts MD [address] [place] [address] PCP - General Family Practice 07/05/23 12/04/24 Jimmy Means DO [address] ELI[address] U[address] [facility] [place] [address] PCP - General Internal Medicine 12/05/24 Nestor Oden MD [address] [facility] [address] [place] [address] Surgeon Vascular Surgery 10/28/22 documented as of this encounter
--- OUTSIDE RECORDS SUMMARY | 2025-07-11 09:17 | XMS_ITS | Clinical Summary ---
Author Organization [facility] Address [address] [place] [address] Care Team Providers Care Apron Worker Name Role Phone Nestor Oden MD Unavailable [phone] Jimmy Means DO Primary Care Provider [phone] Allergies No known active allergies Medications pravastatin (PRAVACHOL) 40 mg tablet Take 1 tablet (40 mg total) by mouth daily Active acetaminophen 500 mg capsule Take 2 capsules (1,000 mg total) by mouth every 6 (six) hours as needed (TAKE FIRST) 1 capsule 9 Active Additional Information Patient not taking.Reported on 12/05/2024 tamsulosin (FLOMAX) 0.4 mg extended release capsule [...] Active Additional Information Patient not taking.Reported on 12/05/2024 ipratropium-alb uteroL (DUO-NEB) 0.5-2.5 mg/3 mL nebulizer solution 2 Active lidocaine (XYLOCAINE) 10 mg/mL (1 %) injection lidocaine (PF) 10 mg/mL (1 %) injection solution In office injection administered by the provider Active triamcinolone (Kenalog) 10 mg/mL injection Kenalog 10 mg/mL suspension for injection In office injection administered by the provider Active Breztri Aerosphere 160-9-4.8 mcg/actuation HFA aerosol inhaler 3 Active metoprolol tartrate (LOPRESSOR) 25 mg immediate release tabletIndicatio ns:Chronic respiratory failure with hypoxia, on home O2 therapy (HCC) Take 0.5 tablets (12.5 mg total) by mouth 2 (two) times a day 60 tablet 11 5 Active apixaban (Eliquis) 5 mg tablet Take 1 tablet (5 mg total) by mouth 2 (two) times a day 60 tablet 11 5 Active spironolactone (ALDACTONE) 25 mg tablet TAKE 1 TABLET(25 MG) BY MOUTH DAILY 90 tablet 3 5 Active furosemide (LASIX) 40 mg tabletIndicatio ns:Chronic right-sided heart failure (HCC) TAKE 1 TABLET(40 MG) BY MOUTH DAILY 90 tablet 1 5 Active Active Problems Problem Noted Date [...] 10/11/2018 Assessment & Plan (10/22/2020 8:15 PM RANCH HAND SUPERVISOR): Impression: Chronic atrial fibrillation on daily anticoagulation. Plan: Continue daily anticoagulation and metoprolol for rate control as directed by his primary care physician and pest control service sales agent. Assessment & Plan (02/11/2019 12:01 AM CDT): [...] Yeager Primary Care Physician: Chace Stafford MD, Hanger Off: Dr. Nicky Hernandez Cancer Staging Stage IIA [...] time. Will call primary care physician or lsat instructor if breathing worsens or does not [...] 5. Annually after year 5. Dr. Em Hanger Off: As needed or directed. Dr. Hernandez Chest [...] cholesterol management blood sugar control blood [facility] DEXA every 2 years calcium with [...] [facility] Debbie Morales [address], [address] [place] [address] Phillip Austin [facility] [address], [address] [place] [address] [facility] [address] [place] [address] [facility] [address], [address] [place] [address] [facility] [place] [address] [facility] [place] [address] [facility] Survivorship Training Classes Please call [phone] to register. Each session is limited to 10 people. Phillip Austin [facility] [place] Conference Room First Floor [address] [place] [address] Debbie Noland Bld[address] Conference Room Third Floor [address] [place] [address] [facility] [address] [address] [facility], [address]. [address] Services: Acupuncture, Auriculotherapy, Chiropractic, Guided Imagery, Healing Touch, Massage Therapy, Nutritional Counseling, Physical Therapy (manual and traditional) and Reflexology [facility] [address] [address], [address] [place]. [address] Services: Acupuncture, Auriculotherapy, Chiropractic, and Massage Therapy [facility] Therapy [facility] [place] [facility] [address], [address] [place] [address] Services: Acupuncture, Auriculotherapy, Guided Imagery, Healing Touch, Massage Therapy, Lymphedema, Physical Therapy and Reflexology [facility] [address], [address] [place]. [address] Services: Acupuncture and Chiropractic [facility] [address] [facility] [place] [address] [employer] [email or web address] Help line 24 hours, 7 days/week, phone [phone] [place] [address] Hours Monday - Monday 8:30 am- 5 [...] hot dogs), desserts, high-fat dairy products and English fries. Most of the studies about cancer [...] to do well. 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 Surveillance CTA revealed widely patent endo repair with no evidence of endoleak or stent migration with a stable eklutna aneurysm sac. Plan: Recommend ongoing risk factor modifications and follow-up in 1 year for re-evaluation and repeat CTA abdomen and pelvis surveillance to evaluate his endovascular AAA repair. Benign hypertension 09/30/2016 Assessment & Plan (10/22/2020 8:14 PM RANCH HAND SUPERVISOR): .Impression: Stable chronic hypertension. Plan: Medications reviewed [...] cancer (HCC) COPD (chronic obstructive pulmonary disease) Coronary artery disease Afib (HCC) HLD (hyperlipidemia) [...] on file Legal Sex Male 11:00 AM RANCH HAND SUPERVISOR Gender Identity Not on file Sexual Orientation Not on file Last Filed Vital Signs Vital Sign Reading Time Taken Comments Blood Pressure 97/52 12/05/2024 1:37 PM CDT Pulse 61 12/05/2024 1:37 PM CDT Temperature 36.3 C (97.4 F) 09/24/2019 1:26 PM RANCH HAND SUPERVISOR Respiratory Rate 15 06/24/2020 10:44 AM RANCH HAND SUPERVISOR Oxygen Saturation 84% 09/11/2024 10:41 AM RANCH HAND SUPERVISOR Inhaled Oxygen Concentration - - Weight 88.9 kg (196 lb) 12/05/2024 1:37 PM CDT Height 177.8 cm (5' 10) 12/05/2024 1:37 PM CDT Body Mass Index 28.12 12/05/2024 1:37 PM CDT Plan of Treatment Health Maintenance Due Date Last Done Comments Depression Screening 1945 Hepatitis C Screening 1945 Hepatitis B Screening 1963 Pneumococcal vaccine 65+ (1 of 2 - PCV) 1964 Zoster Vaccine (1 of 2) 1995 Well Visit 65+ 2010 Fall Risk Assessment 06/24/2021 06/24/2020 Influenza Vaccine (#1) 2025 0, 06/23/2018, 06/23/2018, Additional history exists DTaP/Tdap/Td Vaccine (2 - Td or Tdap) 02/09/2029 02/09/2019 Abdominal Aortic Aneurysm (A AA) Screen Completed 12/05/2024, 11/15/2023, 11/03/2022, Additional history exists Medical Devices Implanted Type Area Tax Technician Device Identifier Shelf Expiration Date Model / Serial / Lot [employer]Ort [id number] Intertan 10mm 20cm Trochanter 130d Short Nail Intramedullary - [id number] Implanted:Qty: 1 on 02/11/2019 by Humera Damon MD at [facility] Right: Femur [employer] rtho [id number] 10/30/2028 [id number] / / [id number] [employer]/Ort ho [id number] Intertan 115mm 110mm Lag Compression Interlock Integrated - [id number] Implanted:Qty: 1 on 02/11/2019 by Humera Damon MD at [facility] Right: Femur [employer]o [id number] 09/24/2028 [id number] / / [id number] [employer]/Ort ho [id number] 5mm 37.5mm Low Profile Internal Hex Femur Screw Bone Trigen - [id number] Implanted:Qty: 1 on 02/11/2019 by Humera Damon MD at [facility] Right: Femur [employer] [id number] 12/02/2028 [id number] / / [id number] Procedures Procedure Name Priority Date/Time Associated Diagnosis Comments CTA ABDOMEN PELVIS W WO CONTRAST Schedule Routine, Read Routine (OP Routine) 10/28/2021 8:40 AM RANCH HAND SUPERVISOR Abdominal aortic aneurysm (AAA) without rupture from Last 3 Months or Most Recently Relevant to Health Maintenance Results * CTA Abdomen Pelvis W WO Contrast (10/28/2021 8:40 AM RANCH HAND SUPERVISOR) Anatomical Region Laterality Modality Body N/A Computed Tomogra phy 10/28/2021 9:07 AM RANCH HAND SUPERVISOR Narrative 10/28/2021 9:36 AM RANCH HAND SUPERVISOR EXAM DESCRIPTION: CTA ABDOMEN PELVIS REASON FOR [...] Munir Olivera M.D. ML T: Report ID: [id number] Reading Location: [id number] Procedure Note Munir Olivera MD - 10/28/2021 [...] by Munir Olivera M.D. T: Report ID: [id number] Reading Location: [id number] Nestor Oden MD IMG CT PROCEDURES Final Re sult from Last 3 Months or Most Recently Relevant to Health Maintenance Insurance MEDICARE [facility] MEDICARE Member Subscriber Plan / Payer (Ef fective 2010-Present) Name:Yecenia Wesley C Member ID:[id number] Relation to Subscriber:Self Name:Wesley Keene Subscriber ID:[id number] Payer ID:[id number] Group ID:Not on file Type:MEDICARE TRADITIONAL Address: [address] [place] [id number] [place] [facility] [place] [facility] MEDICARE [facility] MEDICARE SUPPLEMENT Advance Directives For more information, please contact: [phone] * Full Code (Latest Code Status on File) Date Activated Date Inactivated Comments 02/10/2019 8:45 PM 02/20/2019 9:19 PM Care Teams Apron Worker Relationship Specialty Start Date End Date Jimmy Means DO [address] [place] [address] PCP - General Internal Medicine 12/05/24 Nestor Oden MD [address] [place] [address] Surgeon Vascular Surgery 10/28/22
== END 2025-07-11 09:15 | disposition home or self-care (01) ==
PROVIDERS: PCP Nurse Practitioner; Visit Provider Internal Medicine Hematology & Oncology
DX: C34.90 Malignant neoplasm of unspecified part of unspecified bronchus or lung (principal)
CPT/HCPCS: 71260; Q9967